=== PATIENT | male | born 1950 | race Caucasian/White ===

== ENCOUNTER 2021-05-31 10:39 | Inpatient (IN) | payer OTHER, SELFPAY ==
[~2021-05-31] VITALS: Ht 162.6 cm; Wt 136.1 kg
[~2021-05-31 10:39] MED LIST: AMLO10TA PO; ASPI-1822 PO; ATOR20TA PO; LOSA50TA66 PO
[2021-05-31 10:40] VITALS: BP 102/39
[2021-05-31] MEDS ORDERED: cefTRIAXone 1,000 MG in DEXT 5% MINI-BAG PLUS 50 ML IV ONE (10:45)
--- NOTE | 2021-05-31 11:15 | NUR ---
BLOODWORK COLLECTED AND WALKED OVER TO LAB
[2021-05-31 11:25] LABS: BASOPHILS % (AUTO) 0.1 % (0.0-2.0); EOSINOPHILS % (AUTO) 0.1 % (0.0-4.0); HEMATOCRIT 41.7 % (36-52); HEMOGLOBIN 13.3 g/dL (12.0-18.0); LYMPHOCYTES # (AUTO) 0.4 K/uL (2.0-11.5); LYMPHOCYTES % (AUTO) 2.2 % (20.5-51.1); MEAN CORPUSCULAR HEMOGLOBIN 31 pg (27-31); MEAN CORPUSCULAR HGB CONC 32 g/dL (33-37); MEAN CORPUSCULAR VOLUME 95.5 fL (80-94); MONOCYTES # (AUTO) 0.9 K/uL (0.8-1.0); MONOCYTES % (AUTO) 5.2 % (1.7-9.3); NEUTROPHILS # (AUTO) 16.3 K/uL (1.8-7.7); NEUTROPHILS % (AUTO) 92.4 % (42.2-75.2); PLATELET COUNT (AUTO) 129 K/uL (140-450); RED BLOOD CELL COUNT(AUTO) 4.37 MIL/uL (4.20-6.10); RED CELL DISTRIBUTION WIDTH 15.7 % (11.6-13.7); WHITE BLOOD COUNT (AUTO) 17.6 K/uL (4.8-10.8)
--- NOTE | 2021-05-31 11:30 | NUR ---
70/M BIBA FOR C/O GENERALIZED WEAKNESS AND SLURRED SPEECH X4 DAYS. EMS STATES PATIENT CALLED 911 STATING HE HAS BEEN FEELING INCREASINGLY MORE WEAK EMS STATING ON SCENE PATIENT APPEARED TO HAVE SLURRED SPEECH, NO SIGNS OF FACIAL DROOP OR DROOLING. PATIENT HAS LEFT FOOT AMPUTATION AND RIGHT TOES AMPUTATION, PATIENT DENIES PAIN OR SOB, DENIES FEVERS OR CHILLS. UPON ARRIVAL PATIENT HAS BED BUGS ON HIM, PATIENT PLACED IN GOWN ON BEDSIDE COIN TELLER.
[2021-05-31] MEDS ORDERED: cefTRIAXone 1,000 MG VIAL ONE (11:31)
--- NOTE | 2021-05-31 12:00 | NUR ---
PATIENT TAKEN TO CT VIA MELVIN
[2021-05-31 12:04] LABS: ALBUMIN 3.2 g/dL (3.4-5.0); ANION GAP 17.4 (8-16); ASPARTATE AMINOTRANSFERASE 25 U/L (15-37); CARBON DIOXIDE 22.2 mmol/L (21-32); CHLORIDE 107 mmol/L (98-107); CREATININE 3.2 mg/dL (0.6-1.3); GLUCOSE 99 mg/dL (74-106); POTASSIUM 5.6 mmol/L (3.5-5.1); SODIUM SERUM 141 mmol/L (136-145); TOTAL BILIRUBIN 0.7 mg/dL (0.0-1.0); UREA NITROGEN, BLOOD 48 mg/dL (7-18)
--- NOTE | 2021-05-31 17:00 | NUR ---
PATIENT TAKEN TO CT VIA MELVIN
[2021-05-31 17:06] LABS: APPEARANCE,URINE SL CLOUDY (CLEAR); BILIRUBIN,URINE NEGATIVE (NEGATIVE); BLOOD, URINE 3+ (NEGATIVE); COLOR,URINE YELLOW (YELLOW); LEUKOCYTE ESTERASE ,URINE 2+ (NEGATIVE); NITRITE, URINE NEGATIVE (NEGATIVE); PH,URINE 5.5 (5.0-9.0); UGLUCOSE NEGATIVE (NEGATIVE)
[2021-05-31 17:15] LABS: RBC,URINE 50-80 /HPF (0-5); WBC,URINE 80-100 /HPF (0-5)
[2021-05-31] MEDS ORDERED: ACETAMINOPHEN 325 MG TAB PO PRN (17:15)
[2021-05-31] MEDS ORDERED: MORPHINE SULFATE 4 MG/ML SYR IVP PRN (17:15)
[2021-05-31] MEDS ORDERED: GLIP5TER PO (17:59)
[2021-05-31] MEDS ORDERED: VITD400 PO (17:59)
[2021-05-31] MEDS ORDERED: LOSA100T1 PO (17:59)
[2021-05-31] MEDS ORDERED: ATOR20TA PO (17:59)
[2021-05-31] MEDS ORDERED: AMLO10TA89 PO (17:59)
[2021-05-31] MEDS ORDERED: ASPI-1822 PO (17:59)
[2021-05-31] MEDS ORDERED: FERR325E14 PO (17:59)
[2021-05-31] MEDS ORDERED: FURO-572 PO (17:59)
--- NOTE | 2021-05-31 18:11 | NUR ---
PATIENTS BLOOD PRESSURE 193/160 AND AGAIN 176/114. MADE DR. HDZ AWARE, TELEPHONE ORDER FOR LOSARTAN 25MG AND AMLODIPINE 10MG TO BE GIVEN.
[2021-05-31] MEDS ORDERED: LOSARTAN 25 MG TAB PO SCH (18:13)
--- NOTE | 2021-05-31 19:00 | NUR ---
Patient noted to have existing wounds upon arrival to ER. Photos taken of wound and placed in chart. Physician informed.
--- NOTE | 2021-05-31 19:28 | NUR ---
Pt report given to GUILLE ANAND. Transfer of care at this time.
--- NOTE | 2021-05-31 22:15 | NUR ---
Patient appears to be resting comfortably in bed. Vital Signs within normal limits. Respirations even and unlabored.
--- NOTE | 2021-06-01 01:00 | NUR ---
PT URINATED ON SHEETS. PROCIDED PT BARRETT LYNCH, AND NEW SHEETS. LUPE PLACED UNDER. ASSISTED BY EWA STROUD
[2021-06-01] MEDS: NACL 0.9% 1,000 ML IV SCH ×3 (01:43→18:15)
--- NOTE | 2021-06-01 03:51 | NUR ---
CALLED [facility] FOR ORDERS. PT MAP OF 54 AND HR LOW 39. [employer] OFFICER DR ADVISED BOUS 1 L AND RECHECK BP
--- NOTE | 2021-06-01 05:08 | NUR ---
PT HR AT 39. DENTAL CLAIMS PROCESSOR CALLED AND LEFT MESSAGE.
--- NOTE | 2021-06-01 05:20 | NUR ---
CALLED BACK PUT IT TORB FOR ATROPINE 0.5 MG. TO BE GIVEN BY TANA. PT ON HEART MONITOR . WILL CONTINUE TO MONITOR.
[2021-06-01] MEDS ORDERED: ATROPINE 0.4 MG/ML VIAL IVP ONE (05:25)
[2021-06-01] MEDS ORDERED: ATROPINE 1 MG/10 ML SYR IVP ONE (05:29)
--- NOTE | 2021-06-01 05:30 | NUR ---
atropine given by charge nurse elsa landaverde in ER
--- NOTE | 2021-06-01 06:15 | NUR ---
pt pulled out iv. and tore off leads. pt confused. cannot answer to where we are at, time, place, date. responds to name and pain.
--- NOTE | 2021-06-01 08:00 | NUR ---
Pt without IV and placed new IV to LAC at this time.
--- NOTE | 2021-06-01 08:16 | NUR ---
RECEIVED PHONE REPORT FROM ER NURSE. WAITING PATIENT TO TRANSFER TO UNIT.
--- NOTE | 2021-06-01 08:16 | NUR ---
Patient will be admitted to care of Dr Quintana. Admited to Tele. Will go to room 121A. Belongings list completed. Report to ZEB Franz.
[2021-06-01 08:45] VITALS: BP 97/36
--- NOTE | 2021-06-01 08:45 | NUR ---
RECEIVED PATIENT FROM ER. CC GEN WEAKNESS, SLURRED SPEECH X3 DAYS, DX SEPSIS UTI. PATIENT IS AWAKE WITH VOICE, LETHARGIC. UNABLE TO VERBALIZED NAME. RESPIRATORY EVEN AND UNLABORED, ON 5L OXYGEN VIA NC. NO SIGN OF DISTRESS NOTED. LUNG SOUND CLEAR TO AUSCULTATE. BOWEL SOUND ACTIVE TO ALL QUADRANTS, ABDOMEN ROUNDED, SOFT, NON TENDER. S1 AND S2 NOTED, NO MURMUR. ON TELE MONITOR WITH SB. SKIN WARM, DRY, NON DIAPHORETIC, SKIN RASH NOTED ON BILATERAL BUTTOCK. IV ON LEFT AC 20G, INTACT AND PATENT, SALINE LOCK. LEFT BKA. PATIENT ABLE TO FOLLOW MINIMAL COMMANDS. UNABLE TO VERBALIZED NEED. MRSA COLLECTED. ORIENT TO ROOM AND UNIT ROUTINE. PLAN OF CARE DISCUSSED. PRECAUTION IN PLACE. CALL LIGHT WITHIN REACH. WILL CONTINUE TO MONITOR.
[2021-06-01] MEDS ORDERED: amLODIPine 5 MG TAB PO SCH (09:00)
--- NOTE | 2021-06-01 09:48 | NUR ---
SCHEDULE MEDICATION GIVEN WITH EDUCATION, PATIENT TOLERATED WELL. NO SIGN OF DISTRESS NOTED. PRECAUTION IN PLACE. CALL LIGHT WITHIN REACH. WILL CONTINUE TO MONITOR.
[2021-06-01 10:12] LABS: BASOPHILS % (AUTO) 0.2 % (0.0-2.0); EOSINOPHILS % (AUTO) 0.2 % (0.0-4.0); HEMATOCRIT 37.4 % (36-52); HEMOGLOBIN 12.1 g/dL (12.0-18.0); LYMPHOCYTES # (AUTO) 0.3 K/uL (2.0-11.5); LYMPHOCYTES % (AUTO) 2.4 % (20.5-51.1); MEAN CORPUSCULAR HEMOGLOBIN 31 pg (27-31); MEAN CORPUSCULAR HGB CONC 33 g/dL (33-37); MEAN CORPUSCULAR VOLUME 94.6 fL (80-94); MONOCYTES # (AUTO) 0.7 K/uL (0.8-1.0); MONOCYTES % (AUTO) 4.8 % (1.7-9.3); NEUTROPHILS # (AUTO) 12.8 K/uL (1.8-7.7); NEUTROPHILS % (AUTO) 92.4 % (42.2-75.2); PLATELET COUNT (AUTO) 99 K/uL (140-450); RED BLOOD CELL COUNT(AUTO) 3.95 MIL/uL (4.20-6.10); RED CELL DISTRIBUTION WIDTH 16.1 % (11.6-13.7); WHITE BLOOD COUNT (AUTO) 13.8 K/uL (4.8-10.8)
[2021-06-01 10:23] LABS: ANION GAP 14.6 (8-16); CARBON DIOXIDE 22.7 mmol/L (21-32); CHLORIDE 112 mmol/L (98-107); GLUCOSE 83 mg/dL (74-106); POTASSIUM 5.3 mmol/L (3.5-5.1); SODIUM SERUM 144 mmol/L (136-145); UREA NITROGEN, BLOOD 50 mg/dL (7-18)
--- NOTE | 2021-06-01 11:05 | NUR ---
DC PLANNING: BALAJI SPOKE WITH TERE, CM FOR REGAL, CLINICAL REVIEW GIVEN. ASKED THAT AUTHORIZATION BE CHANGED FROM OUTPATIENT IN PATIENT STATUS. PATIENT ADMITTED WITH UTI, WBC'S ON ADMISSION 17.6, GAP 17.4. CR 3.2, DOCUMENTED LINETTE ON CKD, NEPHRO CONSULT ORDERED. STARTED ON ROCEPHIN IV, CM WILL FOLLOW FOR NEEDS. Addendum: 06/01/21 at 1508 by Rosa Elena Larios CM DC PLANNING: BALAJI SPOKE WITH THE PATIENTS SON MARIAN BY PHONE. THE PATIENT LIVES IN A GROUND FLOOR APARTMENT WITH HIS SON, GRANDCHILDREN, DAUGHTER IN LAW AND SPOUSE. THE PATIENT IS WC BOUND S/P LEFT BKA X 4 YEARS BUT IS ABLE TO STAND AND TRANSFER INDEPENDENTLY. HE HAS OTHER DME OF SHOWER BENCH AND IS INDEPENDENT WITH ADL'S. HE DOES TELEHEALTH VISITS WITH HIS PCP WHO IS THROUGH THE [place] AND HAS HOME HEALTH [facility] FOR WOUNDS TO THE RIGHT LEG. WILL RE-ORDER HOME HEALTH WHEN PATIENT IS STABLE FOR DC HOME, CM WILL FOLLOW FOR NEEDS. Addendum: 06/02/21 at 1042 by Rosa Elena Larios CM DC PLANNING: CM SPOKE WITH [facility], CONFIRMED THAT THEY HAVE BEEN FOLLOWING THE PATIENT. PHONE NUMBER IS [phone], FAX [phone]. CM WILL FAX ORDER FOR HOME HEALTH ON DC TO [facility] SO THAT HOME HEALTH IS SET UP IN CASE OF A WEEKEND DC. CM WILL FOLLOW FOR NEEDS. Addendum: 06/08/21 at 1039 by Rosa Elena Larios CM DC PLANNING: CLINICAL REVIEW GIVEN TO GLADIS TODD [facility]. CM WILL FOLLOW. Addendum: 06/23/21 at 1322 by Rosa Elena Larios CM DC PLANNING: CM SPOKE WITH TERE AT [facility], CLINICAL REVIEW GIVEN. PATIENT ON BIPAP AT 30%, CONTINUES WITH HD, CR 2.5. DOPAMINE BEING TITRATED, AT 4 MCG, CONTINUES ON LASIX AND MEREM. BEING FOLLOWED BY PULEvens, NEPHRO, URO AND ID. CM WILL FOLLOW. Addendum: 06/27/21 at 1203 by Tamera Saunders RN DC PLANNING: OFF DOPAMINE DRIP, ON BIPAP FIO2 30% SATING 97%. POSSIBLE DOWN GRADE TO TELE. PER WARP DYEING TENDER NO INDICATION FOR DIALYSIS. CALLED [facility] [phone] SPOKE WITH TERE BALAJI UPDATED PT'S CLINICAL. DC PLAN TRANSFER TO TELE AND WEAN OF BIPAP. CM TO FOLLOW. Addendum: 06/28/21 at 1136 by Tamera Saunders RN DC PLANNING: FAXED THE [facility] ORDER TO TRESSA CARPIO TO FOLLOW Addendum: 06/28/21 at 1612 by Tamera Saunders RN DC PLANNING CALLED [facility] SPOKE WITH TERE REGARDING THE LTAC EVAL PER TERE PATIENT NOT QUALIFIED FOR LTAC WILL DISCUSS IT WITH DR MCDONALD. CM TO FOLLOW Addendum: 06/28/21 at 1632 by Tamera Saunders RN DC PLANNING: RECEIVED A CALL FROM [facility] SPOKE WITH TERE STATED SHE SPOKE WITH DR TOLBERT AND DR MCDONALD NO NEED TO TRANSFER TO LTAC INSTEAD HOME WITH CPAP . TERE WILL FAX THE CPAP FORM . CM TO FOLLOW Addendum: 06/29/21 at 1129 by Tamera Saunders RN DC PLANNING: SPOKE WITH DR MCDONALD NOTIFIED HIM THAT [facility] DENIED LTAC EVAL. HOWEVER DR MCDONALD INSIST THAT PATIENT CAN"T GO HOME WITH CPAP. CALLED [facility] LEFT A MESSAGE FOR CM [facility]ERE. FAXED TO [facility]. CM TO FOLLOW Addendum: 07/03/21 at 1545 by Tamera Saunders RN DC PLANNING: RECEIVED A CALL FROM [facility] SPOKE WITH TERE STATED [address] [facility] [address] [facility] BECAUSE OF NO SKILL NEEDS AND BIPAP CAN BE MANAGED AT HOME . SHE STILL AWAITING FOR OTHER SNF. SPOKE WITH DELISA AT [facility] FOR THE BIPAP ORDER ONCE THEY SPOKE WITH THE SON FOR THE CO PAY WILL DELIVER THE BIPAP AT THE HOSPITAL. CM TO FOLLOW Addendum: 07/04/21 at 1136 by Tamera Saunders RN DC PLANNING: PER PATIENT'S SON MARIAN OVERTON HAS A [place] INSURANCE AND EVERYTHING SHOULD BE COVERED. CALLED [facility] [phone] SPOKE WITH AZUCENA STATED PATIENT IS 100% COVERED AND REQUESTING ALL PAPERWORK TO BE FAXED TO [phone]. ONCE SHE RECEIVED WILL PRESENT TO THE [place] MD TO GET APPROVAL. CM TO FOLLOW Addendum: 07/04/21 at 1342 by Tamera Saunders RN DC PLANNING: CALLED [place] SPOKE WITH [facility] VICTORIA STILL REVIEWING AND WILL CALL BACK CM TO FOLLOW Addendum: 07/05/21 at 1213 by Tamera Saunders RN DC PLANNING: RECEIVED A CALL FROM [place] [employer] SPOKE WITH JOEL [phone] STATED HE WILL E-MAIL THE CONTRACTED [facility] CM TO FOLLOW Addendum: 07/05/21 at 1314 by Tamera Saunders RN DC PLANNING: RECEIVED A LIST OF CONTRACTED FACILITIES, CALLED PT'S SON SPOKE WITH MARIAN STATED WOULD LIKE HIM TO STAY AT [facility]. [facility]ED TO [facility] CM TO FOLLOW Addendum: 07/06/21 at 1123 by Tamera Saunders RN DC PLANNING: CALLED [place] CM [phone] SPOKE WITH JOEL STATED HE GAVE AUTH TO BRANDON AT [facility] AND AWAITING FOR APPROVAL FOR C-PAP. CM TO FOLLOW Addendum: 07/06/21 at 1456 by Tamera Saunders RN DC PLANNING: RECEIVED A CALL FROM [place] SPOKE WITH JOEL STATED IN ORDER TO HAVE BIPAP ORDER THE [place] DR HAS TO DO THE SLEEP STUDY AND THAT TAKES A WEEK OR 2 AND WILL BE A DELAY FOR DC. CALLED PATIENT SON SPOKE WITH MARIAN AGREED TO PAY THE CO PAY 90 THE FIRST DEPOSIT AND 52 EVERY MONTH. CALLED [facility] SPOKE WITH NILAM STATED THE MACHINE GOT DELIVERED AND PT WILL BE BILLED. CALLED [facility] FRAUSTO SPOKE WITH [facility]AND[facility] STATED WILL GET THE AUTH FROM JOEL AT [place] PT CAN GO TO ROOM 12A . PER JOEL TO CALL [place] [facility] [phone] TO ARRANGE TRANSPORT. CM TO FOLLOW Addendum: 07/06/21 at 1601 by Tamera Saunders RN DC PLANNING: RECEIVED A CALL FROM PT'S SON STATED THAT PT'S WALLET IS MISSING. CHECKED WITH ER DOCUMENTATION ,STATED PATIENT HAS NO WALLED , CHECKED WITH ICU NURSE LISSETT WHO ADMITTED IN ICU SPOKE WITH PT'S SON AT THAT TIME AND CLARIFIED PT HAS NO WALLET. CHECKED WITH TELEEMETRY AND SECURITY NO WALLET. MARIAN WILL CHECK WITH [facility]. CARPIO TO FOLLOW
--- NOTE | 2021-06-01 11:20 | NUR ---
SPOKE WITH PATIENT'S SON, MARIAN. ALL QUESTIONS WERE ANSWERED.
[2021-06-01 12:00] VITALS: BP 95/33
--- NOTE | 2021-06-01 12:30 | NUR ---
BED BATH GIVEN, PATIENT TOLERATED WELL. PATIENT IS MORE AWAKE, ABLE TO VERBALIZE NAME AND . REORIENT PATIENT, EDUCATE USING CALL LIGHT TO HELP. PATIENT DENIES ANY PAIN OR DISCOMFORT. ABLE TO MAKE NEED KNOWN. PRECAUTION IN PLACE. CALL LIGHT WITHIN REACH. WILL CONTINUE TO MONITOR.
--- NOTE | 2021-06-01 12:40 | NUR ---
SPOKE WITH DR LAZCANO REGARDING PATIENT CONDITION. AWARE THAT PT IS RUNNING LOW BP. WILL FOLLOW ORDER. WILL CONTINUE TO MONITOR.
[2021-06-01] MEDS ORDERED: SODIUM POLYSTYRENE 15 GM/60 ML UDBTL PO SCH (14:00)
--- NOTE | 2021-06-01 14:20 | NUR ---
PATIENT IS AWAKE, RESTING IN BED, NO SIGN OF DISTRESS NOTED. PRECAUTION IN PLACE. CALL LIGHT WITHIN REACH. WILL CONTINUE TO MONITOR.
--- NOTE | 2021-06-01 15:19 | NUR ---
PATIENT HAS BEEN SCREENED AND CATEGORIZED MODERATE NUTRITION RISK. PATIENT WILL BE SEEN WITHIN 3-[address] OF [address]ION. BETTY MCCLURE RD
[2021-06-01 16:00] VITALS: BP 108/53
--- NOTE | 2021-06-01 16:45 | NUR ---
SCHEDULE MEDICATION GIVEN WITH EDUCATION, PATIENT IS AWAKE, VERBALIZED UNDERSTANDING, PATIENT TOLERATED WELL. NO SIGN OF DISTRESS NOTED. PRECAUTION IN PLACE. CALL LIGHT WITHIN REACH. WILL CONTINUE TO MONITOR.
[2021-06-01] MEDS: MIDODRINE 5 MG TAB PO SCH (18:22)
--- NOTE | 2021-06-01 18:26 | NUR ---
PATIENT IS HAVING DINNER, NO SIGN OF DISTRESS NOTED. O2 SAT 98% ON RA. PRECAUTION IN PLACE. CALL LIGHT WITHIN REACH. WILL CONTINUE TO MONITOR.
--- NOTE | 2021-06-01 19:12 | NUR ---
ENDORSED PATIENT TO SURVEY SUPERINTENDENT NURSE TO CONTINUITY OF CARE. PATIENT IS STABLE.
--- NOTE | 2021-06-01 19:13 | NUR ---
RECEIVED BEDSIDE REPORT FROM AM RN. PATIENT AWAKE, ALERT IN BED RESTING. ON ROOM AIR. NO S/S OF RESPIRATORY DISTRESS. BREATHING EVEN UNLABORED. ABLE TO COMMUNICATE WITH HIS NEEDS. ALL SAFETY PRECAUTIONS ARE IN PLACE. CALL LIGHT WITHIN REACH. WILL CONTINUE TO MONITOR PT.
[2021-06-01 20:00] VITALS: BP 100/60
--- NOTE | 2021-06-01 21:27 | NUR ---
PER PERMISSION OF ZEB APARICIO - ANSWERING DR VEGA CALL BACK - PER DR VEGA - GIVE HEPARIN INSPITE OF PLT 99 - INFORM ZEB APARICIO - SHE VERBALIZES UNDERSTANDING .
--- NOTE | 2021-06-01 22:06 | NUR ---
HEPARIN ADMINISTERED ORDERED BY
--- NOTE | 2021-06-01 23:00 | NUR ---
PATIENT CLEANED, CHANGED AND REPOSITIONED.
[2021-06-02] VITALS: BP 108/43
[2021-06-02 04:00] VITALS: BP 112/46
--- NOTE | 2021-06-02 04:53 | NUR ---
PATIENT IS SLEEPING. NO S/S OF DISTRESS NOTED. CALL LIGHT WITHIN REACH.
[2021-06-02] MEDS: MIDODRINE 5 MG TAB PO SCH ×3 (07:00→18:32)
--- NOTE | 2021-06-02 07:38 | NUR ---
ENDORSED TO AM RN FOR CONTINUITY OF CARE. PATIENT STABLE.
--- NOTE | 2021-06-02 07:40 | NUR ---
RECEIVED PT FROM NIGHT RN, PT IS ASLEEP AND VISIBLE CHEST RISE AND FALL, RESPIRATION IS EVEN, IV LINE NPOTED ON THE LFA G. 20 WITH IVF NS INFUSING AT 80ML/HR, INTYACT, PT IS ON RA, HAS LEFT BKA AND NO SIGN OF DISTRESS NOTED. WILL CONTINUE TO MONITOR PT.
[2021-06-02 07:51] LABS: BASOPHILS % (AUTO) 0.2 % (0.0-2.0); EOSINOPHILS # (AUTO) 0.1 K/uL (0-0.4); EOSINOPHILS % (AUTO) 0.6 % (0.0-4.0); HEMATOCRIT 35.5 % (36-52); HEMOGLOBIN 11.5 g/dL (12.0-18.0); LYMPHOCYTES # (AUTO) 0.4 K/uL (2.0-11.5); LYMPHOCYTES % (AUTO) 3.1 % (20.5-51.1); MEAN CORPUSCULAR HEMOGLOBIN 31 pg (27-31); MEAN CORPUSCULAR HGB CONC 32 g/dL (33-37); MEAN CORPUSCULAR VOLUME 95.5 fL (80-94); MONOCYTES # (AUTO) 0.7 K/uL (0.8-1.0); MONOCYTES % (AUTO) 5.4 % (1.7-9.3); NEUTROPHILS # (AUTO) 11.6 K/uL (1.8-7.7); NEUTROPHILS % (AUTO) 90.7 % (42.2-75.2); PLATELET COUNT (AUTO) 85 K/uL (140-450); RED BLOOD CELL COUNT(AUTO) 3.72 MIL/uL (4.20-6.10); RED CELL DISTRIBUTION WIDTH 16.2 % (11.6-13.7); WHITE BLOOD COUNT (AUTO) 12.8 K/uL (4.8-10.8)
[2021-06-02 08:00] VITALS: BP 123/69
[2021-06-02 08:10] LABS: MAGNESIUM 1.9 mg/dL (1.8-2.4)
[2021-06-02] MEDS: NACL 0.9% 1,000 ML IV SCH (11:00)
--- NOTE | 2021-06-02 11:59 | NUR ---
WOUND CARE EVALUATION: SKIN ASSESSMENT DONE WITH PRIMARY RN PT. ADMITTED WITH MULTIPLE PRESSURE INJURIES FROM SEVERE MOISTURE ASSOCIATED DERMATITIS WITH TISSUE DESTRUCTIONS FURTHER DOWN TO SUBCUTANEOUS TISSUE OR SLOUGHS TISSUE INVOLVED. POC DISCUSSED WITH PRIMARY RN AND PT. PT. NEED REINFORCEMENT TEACHING. INTEGUMENTARY: -LEFT BKA, STUMP OLD HEALED SCARS -INTERTRIGO LOWER ABDOMINAL FOLDS, AND GROINS MULTIPLE EROSIONS, PINK AND MOIST -SEVERE MOISTURE ASSOCIATED DERMATITIS TO SCROTAL AND ELENO-RECTAL, MULTIPLE EROSIONS -RIGHT BUTTOCK PRESSURE INJURY STAGE 3 8X5X0.2CM WOUND BED 100% GRANULATION TISSUE, MOIST, NO ODOR, ELENO WOUND SKIN NON-BLANCHABLE REDNESS WITH THIN EASILY TO TORN SKIN -LEFT BUTTOCK PRESSURE INJURY STAGE 7X2X0.2CM WOUND BED 100% GRANULATION TISSUE, MOIST, NO ODOR, ELENO WOUND SKIN NON-BLANCHABLE REDNESS WITH THIN EASILY TO TORN SKIN - SACRALCOCCYX PRESSURE INJURY STAGE 3 5 X 3 X 0.2 CM. WOUND BED PINK, MOIST, 90% GRANULATING, 10% YELLOW SLOUGH, MINIMAL SEROUS DRAINAGE, NO ODOR. ELENO-WOUND MOIST, PINK AND DENUDED SKIN - RIGHT ISCHIUM PRESSURE INJURY UN-STAGEABLE WITH 8X4XCM. WOUND BED 30% GRANULATING, 80% YELLOW SLOUGH, MINIMAL SANGUINOUS DRAINAGE, NO ODOR. ELENO-WOUND SKIN MOIST AND RED - LEFT ISCHIUM PRESSURE INJURY UN-STAGEABLE 3X5CM. WOUND BED PINK, MOIST, 100% GRANULATING, MINIMAL SANGUINOUS DRAINAGE, NO ODOR. ELENO-WOUND HEALED SCAR LEFT LOWER LEG PARTIAL THICKNESS SKIN LOSS 9X3X0.1CM, WOUND BED PINK AND DRY, NO ODOR, ELENO WOUND SKIN HEALING TISSUE, NO ODOR, PAIN 0/10 RECOMMENDATIONS: -CLEANS WITH MILD SOAP AND WATER, DUST NYSTATIN POWDERS TO LOWER ABDOMINAL FOLDS BID AND PRN IF SOILING -CLEANS WITH MILD SOAP AND WATER, APPLY Z GUARD TO SCROTAL AND ELENO-ANAL AREA EROSIONS BID AND PRN IF SOILING -SACRALCOCCYX ,LEFT AND RIGHT BUTTOCKS AND LEFT AND RIGHT ISCHIUMS WOUNDS CLEANSE WITH NS, PAT DRY, APPLY HYDROGEL TO WOUND BED AND Z GUARD TO ELENO-WOUND SKIN, COVER WITH ISLAND DRESSINGS QD AND PRN IF SOILING -CLEANSE LLE WOUND WITH NS, APPLY ADAPTIC DRESSING AND WRAP WITH KERLIX ROLL QD AND PRN IF SOILING -OFFLOAD LEFT STUMP AND RIGHT HEEL BY PLACING BILATERAL HEEL PROTECTORS. - TURN AND REPOSITION PATIENT Q2H TO LEFT AND RIGHT SIDE TO OFFLOAD SACRALCOCCYX. - ASSESS AND MONITOR SKIN CONDITION DURING POSITION CHANGE. PLEASE PAY ATTENTION TO SACRALCOCCYX AND HEELS. - KEEP SKIN DRY AND CLEAN AT ALL TIMES. - RD CONSULT
[2021-06-02 12:00] VITALS: BP 99/44
[2021-06-02 12:31] LABS: POTASSIUM 5.3 mmol/L (3.5-5.1); SODIUM SERUM 151 mmol/L (136-145)
[2021-06-02 12:32] LABS: CHLORIDE 118 mmol/L (98-107)
[2021-06-02 12:33] LABS: ANION GAP 22.1 (8-16); CARBON DIOXIDE 16.2 mmol/L (21-32); CREATININE 3.1 mg/dL (0.6-1.3); UREA NITROGEN, BLOOD 51 mg/dL (7-18)
--- NOTE | 2021-06-02 12:36 | NUR ---
RECEIVED A CRITICAL LAB RESULT FOR GLUCOSE OF 39 FOR PT NOW REPORTED BY DEVANTE IN LAB. BLOOD GLUCOSE CHECK WAS DONE TO RE-ASSESS AND BLOOD GLUCOSE IS 52.
[2021-06-02 12:37] LABS: GLUCOSE 39 mg/dL (74-106)
--- NOTE | 2021-06-02 12:45 | NUR ---
MENDEZ CATHETER INSERTION WAS DONE NOW BUT UNSUCCESSFUL, CORDELL REAVES ATTEMPTED TO RE-INSERT MENDEZ CATHETER ALSO BUT UNSUCCESSFUL ALSO. WILL NOTIFY .
[2021-06-02] MEDS ORDERED: DEXTROSE 50% 50 ML SYR IVP ONE (12:47)
[2021-06-02] MEDS ORDERED: DEXTROSE 50% 50 ML SYR IVP PRN (13:10)
[2021-06-02] MEDS ORDERED: NACL 0.9% 500 ML IV SCH (13:10)
[2021-06-02] MEDS: NYSTATIN POW 100 MU/GM 15 GM BTL TP SCH (13:31)
[2021-06-02] MEDS: Z-GUARD PASTE TP SCH (13:31)
[2021-06-02] MEDS: NON ADHERENT DRESSING TP SCH (13:32)
--- NOTE | 2021-06-02 13:36 | NUR ---
BLOOD GLUCOSE CHECK DONE AND IS 131.
--- NOTE | 2021-06-02 14:30 | NUR ---
PT WAS GIVEN BOLUS 500ML NOW PER MD ORDER, DUE TO BP IS LOW, DR. LOPEZ IS AWARE.
[2021-06-02] MEDS ORDERED: SODIUM POLYSTYRENE 15 GM/60 ML UDBTL PO SCH (15:00)
--- NOTE | 2021-06-02 15:58 | NUR ---
06/02/21 RD INITIAL ASSESSMENT COMPLETED PLEASE REFER TO NUTRITION ASSESSMENT UNDER CARE ACTIVITY FOR ESTIMATED NUTRITIONAL NEEDS. 1. CONTINUE CARDIAC, MECHANICAL SOFT DIET TOLERATED 2. RECOMMEND GABRIEL BID AND ENSURE BID PER RD PROTOCOL 3. RD TO FOLLOW-UP 2-3 DAYS, HIGH RISK BETTY MCCLURE, KB
[2021-06-02 16:00] VITALS: BP 112/51
--- NOTE | 2021-06-02 16:40 | NUR ---
MENDEZ CATHTER WAS INSERTED BY UROLOGIST INCIDENT COORDINATOR, F.18 WAS USED. DRAINED 900ML OF URINE.
[2021-06-02] MEDS: SODIUM BICARBONATE 8.4% 100 MEQ in DEXTROSE 5% 1,000 ML IV SCH (17:53)
--- NOTE | 2021-06-02 19:25 | NUR ---
ENDORSED PT TO NIGHT RN FOR CONTINUITY OF CARE. PT IS STABLE AT THIS TIME, SATURATING AT 96% ON O2 2L NC, HEART RATE IS 49.
--- NOTE | 2021-06-02 19:26 | NUR ---
RECEIVED PATIENT FROM AM NURSE. PATIENT AWAKE IN HIGH FOWLERS POSITION WITH O2 AT 2L NC TOLERATING WELL. NO ACUTE DISTRESS. BREATHING REGULAR UNLABORED. IVF INFUSING ON THE LAC ORDERED BY MD. SAFETY MEASURES IN PLACE. CALL LIGHT WITHIN REACH.
[2021-06-02 20:00] VITALS: BP 98/44
--- NOTE | 2021-06-02 20:25 | NUR ---
HEPARIN GIVEN ORDERED BY .
--- NOTE | 2021-06-02 22:50 | NUR ---
BP- 93/29 P-[address] LOPEZ . CALLED BACK AT [phone] WITH ORDER OF NS 500 ML BOLUS.
--- NOTE | 2021-06-02 23:05 | NUR ---
PER JEWEL ,RN PUT NSS [address] LOPEZ - WILL PUT AN ORDER .
[2021-06-02] MEDS: NACL 0.9% 500 ML IV SCH (23:11)
--- NOTE | 2021-06-02 23:36 | NUR ---
PER PERMISSION OF ZEB HOLLOWAY PUT AN ORDER TRANSFER TO PT. TO ICU PER ORDERED BY DR. LOPEZ . Addendum: 06/02/21 at 2350 by Pinky Whiteside RN REMINDING JEWEL ABOUT DR. LOPEZ'S LATEST ORDER : PT FOR REFERRAL TO DR. MARVIN FUENTES Addendum: 06/02/21 at 2351 by Pinky Whiteside RN JEWEL VERBALIZES UNDERSTANDING ABOUT THE ORDER OF DR. LOPEZ .
[2021-06-02] MEDS ORDERED: D5W IV ONE (23:50)
[2021-06-02] MEDS ORDERED: DOPAMINE IV ONE (23:50)
--- NOTE | 2021-06-02 23:51 | NUR ---
PER ICU - BRING THE PT . NOW
[2021-06-02] MEDS ORDERED: NOREPINEPHRINE 4 MG/4 ML VIAL IV ONE (23:53)
--- NOTE | 2021-06-02 23:57 | NUR ---
TRANSFERRED PATIENT TO ICU PER DR. LOPEZ ORDERED.
[2021-06-03] VITALS (24 sets, daily range): BP systolic 89–151; BP diastolic 35–81
[2021-06-03] MEDS: NACL 0.9% 500 ML IV SCH ×5 (00:07→01:40)
[2021-06-03] MEDS: KCL 20 MEQ/WATER INJ PREMIX 100 ML IV SCH ×3 (00:30→22:00)
--- NOTE | 2021-06-03 00:30 | NUR ---
REPORT GIVEN TO ZEB LORENZO FOR CONTINUITY OF CARE.
[2021-06-03] MEDS: NOREPINEPHRINE 4 MG in DEXTROSE 5% 250 ML IV PRN (00:35)
[2021-06-03] MEDS: Z-GUARD PASTE TP SCH ×2 (01:00→12:26)
[2021-06-03] MEDS: NYSTATIN POW 100 MU/GM 15 GM BTL TP SCH ×2 (01:00→12:27)
--- NOTE | 2021-06-03 01:01 | NUR ---
RECEIVED CALL FROM ICU CHARGE NURSE, STATING A STAT ABG HAD BEEN ORDERED FOR THE PT, DUE TO DESATURATION. I ENTERED THE PT'S ROOM I OBSERVED THE PT WORKING HARD TO BREATH AND THE PT HAD AUDIBLE COURSE BREATH SOUNDS WITHOUT THE USE OF A STETHOSCOPE. I WAS UNSUCCESSFUL IN MY ATTEMPT FOR THE ABG, I CALLED MY SECOND RT, THE PT AT THIS TIME REFUSED THE ABG. NURSING STAFF MADE AWARE. DUE THE WORK OF BREATHING AND DIFFICULTY CLEARING SECRETIONS, I PLACED THE PT ON BI-PAP AT THIS TIME. WILL ATTEMPT TO OBTAIN ABG IN AN HOUR. THE PATIENT'S WORK OF BREATHING DECREASED AND SATURATION IS AT 100% AT THIS TIME. WILL CONTINUE TO MONITOR
[2021-06-03] MEDS: SODIUM BICARBONATE 8.4% 100 MEQ in DEXTROSE 5% 1,000 ML IV SCH ×2 (01:30→09:18)
--- NOTE | 2021-06-03 01:32 | NUR ---
PATIENT TO ROOM ICU 1. NOT ALERT OPENS EYES NON VERBAL HEART RATE 50 B/P 94/49 STARTED ON LEVOPHED 15 MCG . 0100 B/P 125/50 HEART RATE 57. PATIENT ON 5 LITERS N/C.PATIENT TO START BACK ON NA-BI-CARB 100 HOUR. PATIENT HAS F/C DRAINING PURULENT URINE. PATIENT IS LEFT BKA SKIN VERY EXCORIATED.
--- NOTE | 2021-06-03 01:47 | NUR ---
CALLED AT 0058 RETURN CALL 0100 TOLD PATIENT HERE FROM [facility] [place] AND HEART RATE 48 TOLD DREfraín PATIENT STARTED ON LEVOPHED ORDERED. DR. LOPEZ TOLD US TO CALL DR. MCDONALD TO SEE IF HE WANTS US TO START DOPAMINE DR. MCDONALD ORDERED DOMAMINE. NOT STARTED YET. DOPAMINE STARTED AT 0152.
[2021-06-03] MEDS: DOPamine 400 MG/D5W PREMIX 250 ML IV PRN ×3 (02:00→19:30)
--- NOTE | 2021-06-03 07:15 | NUR ---
RECEIVED BEDSIDE REPORT FROM BJ CARRINGTON FOR CONTINUITY OF CARE. PT AAOX1, LETHARGIC. SUPINE IN THE BED. ON BIPAP R 18, FIO2 75%. SINUS RHYTHM ON MONITOR. LAC 20G IV PATENT INTACT INFUSING SODIUM BICARBONATE AT 100 ML/H, NS AT 5 ML/H, LEVOPHED ON HOLD, AND DOPAMINE AT 10 MCG/KG/MIN. F/C IN PLACE, DRAINING TO GRAVITY. SKIN NOT INTACT, SEE WOUND ASSESSMENT. L BKA. CALL LIGHT WITHIN REACH, STANDARD PRECAUTIONS IN PLACE. SAFETY PRECAUTIONS MET. INITIAL ASSESSMENT COMPLETE, WILL CONTINUE TO MONITOR.
[2021-06-03] MEDS: MIDODRINE 5 MG TAB PO SCH ×3 (07:57→18:14)
[2021-06-03] MEDS: SKINTEGRITY HYDROGEL TP SCH (09:15)
--- NOTE | 2021-06-03 09:15 | NUR ---
LABORATORY AT BEDSIDE, UNABLE TO DRAW BLOOD.
--- NOTE | 2021-06-03 09:45 | NUR ---
SPOKE WITH CARL PICC NURSE VIA TELEPHONE REGARDING PICC LINE INSERTION, NEEDS CHIEF CREDIT OFFICER APPROVAL. PAGED DR HORN.
--- NOTE | 2021-06-03 09:53 | NUR ---
DR HORN CALLED BACK AND GAVE APPROVAL FOR PICC LINE. NEW ORDERS ALSO CARRIED OUT.
[2021-06-03] MEDS ORDERED: FUROSEMIDE 100 MG/10 ML VIAL IV SCH (10:17)
--- NOTE | 2021-06-03 10:20 | NUR ---
XRAY AT BEDSIDE.
--- NOTE | 2021-06-03 10:45 | NUR ---
SEEN AND EXAMINED BY DR SIMON. NEW ORDERS CARRIED OUT.
--- NOTE | 2021-06-03 11:20 | NUR ---
SEEN AND EXAMINED BY DR CONTRERAS.
[2021-06-03] MEDS ORDERED: ALBUMIN HUMAN 25% 50 ML IV SCH (11:26)
[2021-06-03] MEDS ORDERED: SODIUM BICARBONATE 8.4% PFS 50 MEQ/50 ML SYR IVP ONE (11:37)
[2021-06-03] MEDS ORDERED: SODIUM BICARBONATE 8.4% PFS 50 MEQ/50 ML SYR IVP SCH (11:37)
--- NOTE | 2021-06-03 12:00 | NUR ---
BSG 174. COVERED WITH 2 UNITS OF HUMALOG PER MD ORDER.
[2021-06-03] MEDS: BLOOD GLUCOSE MONITORING 1 DEV DEV FS SCH ×3 (12:05→23:57)
[2021-06-03] MEDS: INSULIN LISPRO SLIDING SCALE 100 UNITS/ML VIAL SUBQ PRN (12:06)
[2021-06-03] MEDS: NON ADHERENT DRESSING TP SCH (12:27)
[2021-06-03] MEDS: CEFEPIME 2,000 MG in DEXTROSE 5% 100 ML IV SCH (12:29)
--- NOTE | 2021-06-03 15:30 | NUR ---
PICC NURSE CARL AT BEDSIDE.
--- NOTE | 2021-06-03 17:00 | NUR ---
RECEIVED REPORT FROM PICC NURSE CARL. INSERTED JORDON MIDLINE. PATENT INTACT. OBTAINED BLOOD FOR ORDERED LABS, DELIVERED TO LABORATORY.
[2021-06-03 17:07] LABS: BASOPHILS % (AUTO) 0.2 % (0.0-2.0); EOSINOPHILS % (AUTO) 0.3 % (0.0-4.0); HEMATOCRIT 38.6 % (36-52); HEMOGLOBIN 12.6 g/dL (12.0-18.0); LYMPHOCYTES # (AUTO) 0.4 K/uL (2.0-11.5); LYMPHOCYTES % (AUTO) 3.4 % (20.5-51.1); MEAN CORPUSCULAR HEMOGLOBIN 31 pg (27-31); MEAN CORPUSCULAR HGB CONC 33 g/dL (33-37); MEAN CORPUSCULAR VOLUME 94.1 fL (80-94); MONOCYTES # (AUTO) 0.8 K/uL (0.8-1.0); MONOCYTES % (AUTO) 6.8 % (1.7-9.3); NEUTROPHILS # (AUTO) 10.5 K/uL (1.8-7.7); NEUTROPHILS % (AUTO) 89.3 % (42.2-75.2); PLATELET COUNT (AUTO) 82 K/uL (140-450); WHITE BLOOD COUNT (AUTO) 11.7 K/uL (4.8-10.8)
[2021-06-03 17:19] LABS: ANION GAP 17.3 (8-16); CARBON DIOXIDE 21.4 mmol/L (21-32); CHLORIDE 111 mmol/L (98-107); GLUCOSE 130 mg/dL (74-106); POTASSIUM 3.7 mmol/L (3.5-5.1); SODIUM SERUM 146 mmol/L (136-145); UREA NITROGEN, BLOOD 48 mg/dL (7-18)
--- NOTE | 2021-06-03 17:30 | NUR ---
PAGED DR HORN REGARDING COMMUNICATION ORDER TO READ BACK CMP RESULTS.
--- NOTE | 2021-06-03 17:45 | NUR ---
CALL BACK FROM DR HORN. CARRIED OUT NEW ORDERS.
--- NOTE | 2021-06-03 17:50 | NUR ---
SPOKE WITH DR SIMON REGARDING DR HORN'S NEW PO ORDERS AND PATIENT'S DYSPHAGIA R/T LETHARGIC STATE. DR SIMON SAID TO HOLD PO ORDERS FOR TONIGHT AND REASSESS TOMORROW MORNING.
[2021-06-03] MEDS ORDERED: MAG SULF 2000 MG/WATER PREMIX 50 ML IV SCH (19:00)
--- NOTE | 2021-06-03 19:10 | NUR ---
SEEN AND EXAMINED BY DR HORN.
--- NOTE | 2021-06-03 19:20 | NUR ---
ENDORSED BEDSIDE REPORT TO SHANTELLE RN FOR CONTINUITY OF CARE.
--- NOTE | 2021-06-03 19:25 | NUR ---
RECEIVED PATIENT ON BED, ALERT ABLE TO FOLLOW SIMPLE COMMANDS; VENTILATING ON BIPAP AT 45% FIO2,RATE 18 16/6; SO2 99%. IV IN PROGRESS DOPAMINE AT 10 MCG/KG/MIN AND LEVOPHED AT AT 2 MCG/MIN VIA MIDLINE TO RIGHT UPPER ARM. ABDOMEN IS SOFT, VERY OBESE, ACTIVE BOWEL SOUNDS. MENDEZ CATH IN SITU DRAINING TO CLOUDY YELLOW URINE OUTPUT; INTACT. LEFT BKA NOTED.
[2021-06-03] MEDS: FUROSEMIDE 40 MG/4 ML VIAL IVP SCH (21:23)
[2021-06-04] VITALS (25 sets, daily range): BP systolic 91–161; BP diastolic 40–139
--- NOTE | 2021-06-04 | NUR ---
ACCUCHECK DONE; RESULT IS 107, NO INSULIN GIVEN PER SLIDING SCALE.
[2021-06-04] MEDS ORDERED: NOREPINEPHRINE 4 MG/4 ML VIAL IV ONE ×3 (00:27→20:50)
[2021-06-04] MEDS: NOREPINEPHRINE 4 MG in DEXTROSE 5% 250 ML IV PRN ×3 (00:42→21:07)
[2021-06-04] MEDS: NYSTATIN POW 100 MU/GM 15 GM BTL TP SCH ×2 (01:00→12:15)
[2021-06-04] MEDS: DOPamine 400 MG/D5W PREMIX 250 ML IV PRN (01:43)
--- NOTE | 2021-06-04 03:00 | NUR ---
DOPAMINE DRIP,TAPER AND HOLD.
[2021-06-04] MEDS: Z-GUARD PASTE TP SCH ×2 (03:30→12:15)
--- NOTE | 2021-06-04 04:00 | NUR ---
REFUSED MORNING BED BATH.
[2021-06-04 05:57] LABS: BASOPHILS % (AUTO) 0.4 % (0.0-2.0); EOSINOPHILS # (AUTO) 0.1 K/uL (0-0.4); EOSINOPHILS % (AUTO) 0.8 % (0.0-4.0); HEMATOCRIT 31.7 % (36-52); HEMOGLOBIN 10.6 g/dL (12.0-18.0); LYMPHOCYTES # (AUTO) 0.3 K/uL (2.0-11.5); MEAN CORPUSCULAR HEMOGLOBIN 31 pg (27-31); MEAN CORPUSCULAR HGB CONC 34 g/dL (33-37); MEAN CORPUSCULAR VOLUME 93.1 fL (80-94); MONOCYTES # (AUTO) 0.8 K/uL (0.8-1.0); NEUTROPHILS # (AUTO) 5.9 K/uL (1.8-7.7); PLATELET COUNT (AUTO) 85 K/uL (140-450); RED BLOOD CELL COUNT(AUTO) 3.41 MIL/uL (4.20-6.10); RED CELL DISTRIBUTION WIDTH 15.7 % (11.6-13.7); WHITE BLOOD COUNT (AUTO) 7.1 K/uL (4.8-10.8)
[2021-06-04] MEDS: BLOOD GLUCOSE MONITORING 1 DEV DEV FS SCH ×3 (06:14→17:37)
[2021-06-04] MEDS: MIDODRINE 5 MG TAB PO SCH ×2 (06:37→12:16)
[2021-06-04 07:01] LABS: ANION GAP 17.8 (8-16); CARBON DIOXIDE 20.1 mmol/L (21-32); CHLORIDE 110 mmol/L (98-107); CREATININE 3.1 mg/dL (0.6-1.3); GLUCOSE 93 mg/dL (74-106); POTASSIUM 5.9 mmol/L (3.5-5.1); SODIUM SERUM 142 mmol/L (136-145); UREA NITROGEN, BLOOD 48 mg/dL (7-18)
[2021-06-04 07:03] LABS: LYMPHOCYTES % (AUTO) 4.7 % (20.5-51.1); NEUTROPHILS % (AUTO) 82.9 % (42.2-75.2)
[2021-06-04 07:04] LABS: MONOCYTES % (AUTO) 11.2 % (1.7-9.3)
--- NOTE | 2021-06-04 07:05 | NUR ---
RECEIVED BEDSIDE REPORT FROM SHANTELLE RN FOR CONTINUITY OF CARE. PT AAOX1, LETHARGIC. SUPINE IN THE BED. ON BIPAP R 18, FIO2 45%, IPAP 16, EPAP 6. SINUS RHYTHM ON MONITOR. JORDON MIDLINE PATENT INTACT INFUSING NS TKO AT 5 ML/H, LEVOPHED AT 8 MCG/MIN, DOPAMINE HELD. F/C IN PLACE, DRAINING TO GRAVITY. SKIN NOT INTACT, SEE WOUND ASSESSMENT. L BKA. CALL LIGHT WITHIN REACH, STANDARD PRECAUTIONS IN PLACE. SAFETY PRECAUTIONS MET. INITIAL ASSESSMENT COMPLETE, WILL CONTINUE TO MONITOR.
--- NOTE | 2021-06-04 08:45 | NUR ---
SEEN AND EXAMINED BY DR SIMON.
--- NOTE | 2021-06-04 08:45 | NUR ---
DR CONTRERAS AT BEDSIDE FOR DIALYSIS CATHETER INSERTION.
[2021-06-04] MEDS: SKINTEGRITY HYDROGEL TP SCH (08:49)
[2021-06-04] MEDS ORDERED: SPIRONOLACTONE 50 MG TAB PO SCH (09:00)
--- NOTE | 2021-06-04 09:07 | NUR ---
REVIEWED [facility] SAMPLE REPORT WITH DR. YADY BRAR: OFF BIPAP TO MASK; KEEP SATURATION GREATER THAN 88%
[2021-06-04] MEDS: FUROSEMIDE 40 MG/4 ML VIAL IVP SCH ×2 (09:10→21:30)
[2021-06-04] MEDS: metOLazone 5 MG TAB PO SCH (09:10)
--- NOTE | 2021-06-04 09:20 | NUR ---
XRAY AT BEDSIDE.
[2021-06-04] MEDS ORDERED: VASOPRESSIN 20 UNITS in NACL 0.9% 250 ML IV SCH (09:50)
--- NOTE | 2021-06-04 09:50 | NUR ---
SPOKE WITH MARIAN (SON) VIA TELEPHONE TO GIVE UPDATE REGARDING PATIENT'S CONDITION.
--- NOTE | 2021-06-04 11:00 | NUR ---
SEEN AND EXAMINED BY DR EM.
--- NOTE | 2021-06-04 11:20 | NUR ---
RECEIVED CALL FROM DIALYSIS SERVICE, ETA /2PM.
--- NOTE | 2021-06-04 11:33 | NUR ---
PER DR. YADY BRAR AT 0907 REMOVED PATIENT FROM BIPAP TO MASK PLACED ON HUMIDIFIED SUPPLEMENTAL OXYGEN AT 4 LPM VIA SERGO KHALIL/ZEB NOTIFIED
--- NOTE | 2021-06-04 11:35 | NUR ---
RT AT BEDSIDE, OFF OF BIPAP PER DR SIMON ORDER, ON 4L NC. WILL CONTINUE TO MONITOR.
[2021-06-04] MEDS: NON ADHERENT DRESSING TP SCH (12:15)
[2021-06-04] MEDS: CEFEPIME 2,000 MG in DEXTROSE 5% 100 ML IV SCH (12:42)
--- NOTE | 2021-06-04 13:00 | NUR ---
UNABLE TO SWALLOW MIDODRINE, CRUSHED IN APPLESAUCE, NON-ADMIN REASON ON JUL.
--- NOTE | 2021-06-04 13:10 | NUR ---
RESTING WELL NO DISTRESS NOTED EQUAL CHEST RISE AIRWAY PATENT SATURATION 95% ON SUPPLEMENTAL OXYGEN AT 4 LPM VIA NC TITRATED FIO2 TO 3 LPM SIMRAN/RN NOTIFIED
[2021-06-04 13:22] LABS: PROTHROMBIN TIME 11.7 secs (10.8-13.4)
--- NOTE | 2021-06-04 14:30 | NUR ---
CLEANED AND REPOSITIONED, TOLERATED POORLY, SPO2 85%.
--- NOTE | 2021-06-04 14:45 | NUR ---
SEEN AND EXAMINED BY DR ARRIOLA. NEW ORDERS CARRIED OUT.
--- NOTE | 2021-06-04 15:00 | NUR ---
DIALYSIS NURSE AT BEDSIDE. WILL CONTINUE TO MONITOR.
--- NOTE | 2021-06-04 16:00 | NUR ---
MARIAN, PT'S SON, VISIT ICU TO SEE PT. COMMUNICATED THAT PT IS IN DIALYSIS AND UNABLE TO HAVE VISITORS AT THIS TIME. MARIAN EXPRESSED CONCERN ABOUT PT'S BELONGINGS. PT DOES NOT HAVE BELONGINGS AT THE BEDSIDE AT THIS TIME. CALLED [facility] SECURITY TO LOCATE BELONGINGS. NOT FOUND.
--- NOTE | 2021-06-04 17:15 | NUR ---
DIALYSIS COMPLETE, 500 CC OUT. PT TOLERATED WELL.
--- NOTE | 2021-06-04 19:15 | NUR ---
ENDORSED BEDSIDE REPORT TO SHANTELLE RN FOR CONTINUITY OF CARE.
--- NOTE | 2021-06-04 19:20 | NUR ---
RECEIVED PATIENT ON BED ALERT BUT WITH BOUT OF CONFUSION; MUMBLE SPEECH. VENTILATING ON 2 LITERS 02/NC, SO2 94%. CARDIACSCOPE SHOWS ON SINUS RHYTHM WITH BBB. COMMENCING ON IV LEVOPHED AT 8 MCG/MIN VIA MIDLINE TO RIGHT UPPER ARM PATENT AND INTACT. WITH CELESTINO CATH TO RIGHT INTERNAL JUGULAR FOR HD ACCESS. ABDOMEN IS SOFT AND VERY OBESE, HYPOACTIVE BOWEL SOUNDS.; KEPT NPO EXCEPT MEDS. WITH MENDEZ CATH IN PLACE DRAINING TO CLOUDY YELLOW URINE OUTPUT, INTACT.
--- NOTE | 2021-06-04 21:00 | NUR ---
ACCUCHECK DONE; NO INSULIN GIVEN PER SLIDING SCALE.
--- NOTE | 2021-06-04 22:00 | NUR ---
V/S MONITORED CLOSELY ESPECIALLY HIS BP BECAUSE HIS BP GOES UP SO HIGH THEN SUDDENLY IF GOES DOWN TOO TO AROUND 70'S SYSTOLIC.
[2021-06-05] VITALS (26 sets, daily range): BP systolic 81–175; BP diastolic 35–101
[2021-06-05] MEDS: Z-GUARD PASTE TP SCH ×2 (03:00→13:00)
[2021-06-05] MEDS: NYSTATIN POW 100 MU/GM 15 GM BTL TP SCH ×2 (04:00→13:00)
[2021-06-05 05:41] LABS: BASOPHILS % (AUTO) 0.2 % (0.0-2.0); EOSINOPHILS # (AUTO) 0.1 K/uL (0-0.4); EOSINOPHILS % (AUTO) 0.8 % (0.0-4.0); HEMATOCRIT 35.8 % (36-52); HEMOGLOBIN 12.1 g/dL (12.0-18.0); LYMPHOCYTES % (AUTO) 11.2 % (20.5-51.1); MEAN CORPUSCULAR HEMOGLOBIN 31 pg (27-31); MEAN CORPUSCULAR HGB CONC 34 g/dL (33-37); MEAN CORPUSCULAR VOLUME 92.4 fL (80-94); MONOCYTES % (AUTO) 11.7 % (1.7-9.3); NEUTROPHILS # (AUTO) 6.4 K/uL (1.8-7.7); NEUTROPHILS % (AUTO) 76.1 % (42.2-75.2); PLATELET COUNT (AUTO) 87 K/uL (140-450); RED BLOOD CELL COUNT(AUTO) 3.88 MIL/uL (4.20-6.10); RED CELL DISTRIBUTION WIDTH 15.8 % (11.6-13.7); WHITE BLOOD COUNT (AUTO) 8.5 K/uL (4.8-10.8)
[2021-06-05] MEDS: MIDODRINE 5 MG TAB PO SCH ×4 (06:16→17:58)
[2021-06-05] MEDS: BLOOD GLUCOSE MONITORING 1 DEV DEV FS SCH ×4 (06:16→18:16)
--- NOTE | 2021-06-05 06:30 | NUR ---
PATIENT REFUSED HIS ORAL MEDICATION AND NOTICED PATIENT IS BECOMING MORE CONFUSE. STILL ON LEVOPHED DRIP
--- NOTE | 2021-06-05 07:15 | NUR ---
RECEIVED REPORT FROM NIGHT NURSE. PATIENT ORIENTED TO PERSON ONLY. RESTING COMFORTABLY.
[2021-06-05 07:44] LABS: ANION GAP 16.2 (8-16); CARBON DIOXIDE 24.9 mmol/L (21-32); CHLORIDE 104 mmol/L (98-107); CREATININE 2.7 mg/dL (0.6-1.3); GLUCOSE 129 mg/dL (74-106); POTASSIUM 4.1 mmol/L (3.5-5.1); SODIUM SERUM 141 mmol/L (136-145); UREA NITROGEN, BLOOD 34 mg/dL (7-18)
--- NOTE | 2021-06-05 08:00 | NUR ---
PATIENT AWAKE, ORIENTED TO PERSON. REORIENTED TO PLACE AND DATE. PATIENT SPEAKS WORDS BUT GARBLED. MOVES ALL EXTREMITIES. PULLS AT BLANKETS AND GOWN. LEFT WRIST RESTRAINT ON. FOLLOWS COMMANDS TO INFORMATION SERVICES ASSISTANT HANDS. HEART SOUNDS REGULAR. MONITOR WITH SR. ANTERIOR LATERAL LUNG SOUNDS DIMINISHED BILATERALLY. O2 NC AT 3L. SAO2 IN 90'S. ABDOMEN SOFT WITH HYPOACTIVE BOWEL SOUNDS. MENDEZ IN PLACE WITH DARK HEBERT URINE. LEFT BKA. RIGHT LOWER LEG DRESSING DRY AND INTACT. LEVO AT 10MCG DECREASED TO 6 MCG/ BP SOMEWHAT LABILE.
[2021-06-05] MEDS: SKINTEGRITY HYDROGEL TP SCH (09:00)
[2021-06-05] MEDS: metOLazone 5 MG TAB PO SCH (09:00)
--- NOTE | 2021-06-05 09:00 | NUR ---
BP ELEVATED. LEVO TITRATED DOWN TO OFF BUT WITH DROP OF SBP TO 80'S TURNED BACK TO 4MCG/MIN
[2021-06-05] MEDS: FUROSEMIDE 40 MG/4 ML VIAL IVP SCH ×2 (09:36→20:20)
--- NOTE | 2021-06-05 10:15 | NUR ---
POWER EQUIPMENT TECHNOLOGY INSTRUCTOR HERE AND STARTING DIAYLYSIS.
--- NOTE | 2021-06-05 12:23 | NUR ---
06/05/21 RD FOLLOW UP COMPLETED PLEASE REFER TO NUTRITION ASSESSMENT UNDER CARE ACTIVITY FOR ESTIMATED NUTRITIONAL NEEDS. 1. WHEN/IF MEDICALLY APPROPRIATE, CONTINUE CARDIAC, MECHANICAL SOFT DIET TOLERATED 2. WHEN PT ON PO DIET, RECOMMEND GABRIEL BID AND ENSURE BID PER RD PROTOCOL 3. RD TO FOLLOW-UP 2-3 DAYS, HIGH RISK BETTY MCCLURE RD
[2021-06-05] MEDS: NON ADHERENT DRESSING TP SCH (13:00)
[2021-06-05] MEDS: CEFEPIME 2,000 MG in DEXTROSE 5% 100 ML IV SCH (13:31)
--- NOTE | 2021-06-05 19:16 | NUR ---
ENDORSED PT TO MEDICINE AND HEALTH SERVICE MANAGER NURSE FOR CONTINUOUS OF CARE.
--- NOTE | 2021-06-05 19:30 | NUR ---
ASSUMED CARE OF PT.INITIAL ASSESSMENT COMPLETED.PT CONFUSED.SR WITH 1ST DEGREE AV BLOCK/BBB NOTED ON MONITOR.ON 02NC AT 3LPM.W/JORDON MIDLINE INFUSING NS AT 5ML/HR.PT MAINTAINED ON NPO EXCEPT MEDS.ABDOMEN LARGE, SOFT.W/MENDEZ CATHETER TO BSD DRAINING YELLOW URINE.W/LT BKA. W/WOUND TO RLE, EXCORIATION NOTED TO PERINEAL AND SACRAL AREA.FLACC 0.REPOSITIONED.
--- NOTE | 2021-06-05 20:19 | NUR ---
PHONE CALL TO DR SAUNDRA ARRIOLA, SKOOG MACHINE OPERATOR; PT ON HEPARIN , PLATELET 87; PER OK TO GIVE HEPARIN
--- NOTE | 2021-06-05 20:42 | NUR ---
2034 PATIENT REFUSED TO PUT BIPAP MASK ON. PT BECAME COMBATIVE. BIPAP IS ON STANDBY BY PATIENTS BED.PLACED PT BACK ON 3LNCF
--- NOTE | 2021-06-05 21:18 | NUR ---
PATIENT WAS RESTRAINED AND ABLE TO PUT PT ON BIPAP IPAP 16 EPAP 6 RR 18 FIO2 40%. WILL TITRATE FIO2
[2021-06-06] VITALS (25 sets, daily range): BP systolic 92–165; BP diastolic 44–105
--- NOTE | 2021-06-06 | NUR ---
PT DOZING ON AND OFF; PERIODS OF CONFUSION STILL NOTED; TRYING TO REMOVE BIPAP; RE ORIENTED.
[2021-06-06] MEDS: Z-GUARD PASTE TP SCH ×2 (01:08→13:16)
[2021-06-06] MEDS: NYSTATIN POW 100 MU/GM 15 GM BTL TP SCH ×2 (01:08→13:16)
--- NOTE | 2021-06-06 03:00 | NUR ---
PTS CONDITION REMAINS UNCHANGED.STILL ON BIPAP FIO2 30%.PT STILL WITH BOUTS OF CONFUSION, NOT REMOVING BIPAP THOUGH.0/10 PAIN.REPOSITIONED.
[2021-06-06] MEDS: BLOOD GLUCOSE MONITORING 1 DEV DEV FS SCH ×4 (06:00→18:50)
--- NOTE | 2021-06-06 06:00 | NUR ---
BS 103; PT PINCHING AND RESTLESS THE WHOLE TIME ACCU CHECK WAS DONE; REFUSED P.O MEDS.
--- NOTE | 2021-06-06 06:03 | NUR ---
Called and spoke with Dr Quintana for downgrading pt Menard to tele; told Dr Quintana that pt is on BIPAP and no drips. Dr Quintana stated that he does not feel that pt is stable to downgrade with BIPAP. Told Dr Quintana that [facility] has pt with BIPAP also; he stated that he still does not feel that pt is stable to be downgraded to tele with BIPAP, and he told me to ask the product marketing analyst
[2021-06-06] MEDS: MIDODRINE 5 MG TAB PO SCH ×3 (06:39→19:28)
--- NOTE | 2021-06-06 07:05 | NUR ---
RECEIVED BEDSIDE REPORT FROM SHORTY CARRINGTON FOR CONTINUITY OF CARE. PT AAOX1, LETHARGIC. SUPINE IN THE BED. ON BIPAP R 18, FIO2 40%, IPAP 16, EPAP 6. SINUS RHYTHM ON MONITOR. JORDON MIDLINE PATENT INTACT INFUSING NS TKO AT 5 ML/H. F/C IN PLACE, DRAINING TO GRAVITY. SKIN NOT INTACT, SEE WOUND ASSESSMENT. L BKA. CALL LIGHT WITHIN REACH, STANDARD PRECAUTIONS IN PLACE. SAFETY PRECAUTIONS MET. INITIAL ASSESSMENT COMPLETE, WILL CONTINUE TO MONITOR.
--- NOTE | 2021-06-06 08:10 | NUR ---
REMOVED PATIENT FROM BIPAP TO MASK PLACED ON HUMIDIFIED SUPPLEMENTAL OXYGEN AT 3 LPM VIA NC SATURATION 96%
--- NOTE | 2021-06-06 08:10 | NUR ---
RT AT BEDSIDE SWITCHING PT FROM BIPAP TO NC AT 3L.
--- NOTE | 2021-06-06 08:10 | NUR ---
SEEN AND EXAMINED BY DR HORN. ORDERS CARRIED OUT.
[2021-06-06] MEDS ORDERED: LORazepam 2 MG/ML VIAL IVP PRN (08:30)
[2021-06-06] MEDS: SKINTEGRITY HYDROGEL TP SCH (08:50)
[2021-06-06] MEDS ORDERED: FUROSEMIDE 20 MG/2 ML VIAL IVP ONE (09:45)
[2021-06-06] MEDS: FUROSEMIDE 40 MG/4 ML VIAL IVP SCH ×2 (09:50→20:06)
[2021-06-06 10:20] LABS: BASOPHILS % (AUTO) 0.4 % (0.0-2.0); EOSINOPHILS # (AUTO) 0.1 K/uL (0-0.4); EOSINOPHILS % (AUTO) 2.2 % (0.0-4.0); HEMOGLOBIN 11.4 g/dL (12.0-18.0); LYMPHOCYTES # (AUTO) 0.6 K/uL (2.0-11.5); LYMPHOCYTES % (AUTO) 13.6 % (20.5-51.1); MEAN CORPUSCULAR HEMOGLOBIN 31 pg (27-31); MEAN CORPUSCULAR HGB CONC 34 g/dL (33-37); MEAN CORPUSCULAR VOLUME 91.5 fL (80-94); MONOCYTES # (AUTO) 0.5 K/uL (0.8-1.0); MONOCYTES % (AUTO) 11.5 % (1.7-9.3); NEUTROPHILS # (AUTO) 3.4 K/uL (1.8-7.7); NEUTROPHILS % (AUTO) 72.3 % (42.2-75.2); PLATELET COUNT (AUTO) 61 K/uL (140-450); RED BLOOD CELL COUNT(AUTO) 3.71 MIL/uL (4.20-6.10); RED CELL DISTRIBUTION WIDTH 15.5 % (11.6-13.7); WHITE BLOOD COUNT (AUTO) 4.8 K/uL (4.8-10.8)
[2021-06-06] MEDS: DEXMEDETOMIDINE HCL 400 MCG in NACL 0.9% 96 ML IV PRN ×2 (10:20→19:33)
--- NOTE | 2021-06-06 10:20 | NUR ---
PRECEDEX DRIP STARTED AND INFUSING AT 0.2 MCG/KG/HR. PT IS PINCHING STAFF AND TRYING TO REMOVE NASAL CANNULA.
[2021-06-06 10:43] LABS: ALBUMIN 2.1 g/dL (3.4-5.0); ASPARTATE AMINOTRANSFERASE 37 U/L (15-37); CARBON DIOXIDE 28.6 mmol/L (21-32); CHLORIDE 101 mmol/L (98-107); CREATININE 2.3 mg/dL (0.6-1.3); GLUCOSE 104 mg/dL (74-106); PHOSPHORUS 3.2 mg/dL (2.5-4.9); POTASSIUM 3.6 mmol/L (3.5-5.1); SODIUM SERUM 138 mmol/L (136-145); TOTAL BILIRUBIN 0.7 mg/dL (0.0-1.0); UREA NITROGEN, BLOOD 29 mg/dL (7-18)
[2021-06-06 11:09] LABS: MAGNESIUM 1.8 mg/dL (1.8-2.4)
[2021-06-06] MEDS: metOLazone 5 MG TAB PO SCH (11:30)
--- NOTE | 2021-06-06 11:30 | NUR ---
NGT INSERTED PER MD ORDER.
[2021-06-06] MEDS: NON ADHERENT DRESSING TP SCH (13:16)
[2021-06-06] MEDS: CEFEPIME 2,000 MG in DEXTROSE 5% 100 ML IV SCH (13:18)
--- NOTE | 2021-06-06 15:40 | NUR ---
[place] TRANSFERRED TO CT FOR CT HEAD.
--- NOTE | 2021-06-06 17:40 | NUR ---
PT CLEANED AND REPOSITIONED. TOLERATED WELL. WILL CONTINUE TO MONITOR.
--- NOTE | 2021-06-06 19:00 | NUR ---
PHONE CALL TO DR ARRIOLA,FUN HOUSE ATTENDANT.NOTIFIED MD OF PTS HEART RATE GOING DOWN TO 33; BP 147/54; PER DR ARRIOLA, ITS OK LONG THE BP IS OK; TO START DOPAMINE ONCE MEAN PRESSURE IS BELOW 65.
--- NOTE | 2021-06-06 19:10 | NUR ---
ENDORSED BEDSIDE REPORT TO SHORTY CARRINGTON FOR CONTINUITY OF CARE.
--- NOTE | 2021-06-06 19:30 | NUR ---
ASSUMED CARE OF PT.INITIAL ASSESSMENT COMPLETED.ON 02NC AT 3LPM.W/JORDON MIDLINE INTACT, INFUSING NS AT 5ML/HR AND PRECEDEX DRIP 400MCG IN 96 ML NS AT 0.3MCG/KG/HR.RASS 0.ABDOMEN LARGE, SOFT.W/NGT TO RT NARES INTACT.PLACEMENT CHECKED.TO START NGT ORDERED.W/EMNDEZ CATHETER TO BSD DRAINING YELLOW URINE.W/LT BKA. W/WOUND TO RLE, EXCORIATION NOTED TO PERINEAL AND SACRAL AREA.FLACC 0.REPOSITIONED.
--- NOTE | 2021-06-06 20:00 | NUR ---
NGT FEEDING NEPRO STARTED ORDERED, STARTED AT 10ML/HR.WILL CONTINUE TO MONITOR PT.
[2021-06-07] VITALS (26 sets, daily range): BP systolic 101–154; BP diastolic 40–73
[2021-06-07] MEDS: BLOOD GLUCOSE MONITORING 1 DEV DEV FS SCH ×4 (00:15→18:19)
[2021-06-07] MEDS: Z-GUARD PASTE TP SCH ×2 (00:16→14:00)
[2021-06-07] MEDS: NYSTATIN POW 100 MU/GM 15 GM BTL TP SCH ×2 (00:16→13:00)
--- NOTE | 2021-06-07 01:00 | NUR ---
BM NOTED.MODERATE AMT OF BLACK WATERY STOOL.PT CLEANED.DRESSING TO SACRUM CHANGED.CREAM APPLIED TO PERINEAL AREA.REPOSITIONED
[2021-06-07 06:10] LABS: BASOPHILS % (AUTO) 0.3 % (0.0-2.0); EOSINOPHILS # (AUTO) 0.1 K/uL (0-0.4); EOSINOPHILS % (AUTO) 0.9 % (0.0-4.0); HEMATOCRIT 37.7 % (36-52); HEMOGLOBIN 12.4 g/dL (12.0-18.0); LYMPHOCYTES # (AUTO) 0.5 K/uL (2.0-11.5); LYMPHOCYTES % (AUTO) 5.2 % (20.5-51.1); MEAN CORPUSCULAR HEMOGLOBIN 30 pg (27-31); MEAN CORPUSCULAR HGB CONC 33 g/dL (33-37); MEAN CORPUSCULAR VOLUME 91.9 fL (80-94); MONOCYTES # (AUTO) 0.7 K/uL (0.8-1.0); MONOCYTES % (AUTO) 6.6 % (1.7-9.3); NEUTROPHILS # (AUTO) 8.9 K/uL (1.8-7.7); PLATELET COUNT (AUTO) 49 K/uL (140-450); WHITE BLOOD COUNT (AUTO) 10.3 K/uL (4.8-10.8)
[2021-06-07] MEDS: MIDODRINE 5 MG TAB PO SCH ×3 (06:22→19:00)
[2021-06-07 06:40] LABS: ALBUMIN 2.1 g/dL (3.4-5.0); ANION GAP 11.2 (8-16); ASPARTATE AMINOTRANSFERASE 42 U/L (15-37); CHLORIDE 102 mmol/L (98-107); CREATININE 2.4 mg/dL (0.6-1.3); GLUCOSE 118 mg/dL (74-106); POTASSIUM 4.2 mmol/L (3.5-5.1); SODIUM SERUM 139 mmol/L (136-145); TOTAL BILIRUBIN 0.7 mg/dL (0.0-1.0); UREA NITROGEN, BLOOD 36 mg/dL (7-18)
--- NOTE | 2021-06-07 08:00 | NUR ---
RECEIVED REPORT FROM LAUNDRY MACHINE OPERATOR. INITIAL ASSESSMENT COMPLETED. ON BIPAP. RIGHT UPPER ARM MIDLINE IN TACT. NS INFUSING AT 5 ML/HR. NG TUBE TO RIGHT NARES INTACT. MENDEZ CATH DRAINING CLEAR YELLOW URINE.
[2021-06-07] MEDS: FUROSEMIDE 40 MG/4 ML VIAL IVP SCH ×2 (08:19→21:15)
--- NOTE | 2021-06-07 08:30 | NUR ---
D/C PRECEDEX AND KEEP MAP ABOVE [address] SAVAGE.
--- NOTE | 2021-06-07 08:45 | NUR ---
DR. HORN ASSESSED PATIENT. ORDERED TO STOP DIALYSIS DUE TO GOOD URINE OUTPUT. DIALYSIS COMPANY NOTIFIED.
[2021-06-07] MEDS: SKINTEGRITY HYDROGEL TP SCH (09:00)
--- NOTE | 2021-06-07 09:00 | NUR ---
0900 MEDS (LASIX, HEPARIN, SEROQUEL) ADMINISTERED WITH ZEB REID. NG TUBE RESIDUAL 10 CC.
[2021-06-07] MEDS: QUEtiapine FUMARATE 25 MG TAB PO SCH ×2 (09:42→21:16)
--- NOTE | 2021-06-07 10:00 | NUR ---
DR. HDZ ASSESSED PATIENT. REQUEST ORDER FOR ABGs. ORDER PLACED.
--- NOTE | 2021-06-07 10:30 | NUR ---
DR. ARRIOLA ASSESSED PATIENT. NO NEW ORDERS.
--- NOTE | 2021-06-07 11:46 | NUR ---
06/07/21 RD FOLLOW UP COMPLETED PLEASE REFER TO NUTRITION ASSESSMENT UNDER CARE ACTIVITY FOR ESTIMATED NUTRITIONAL NEEDS. 1. RECOMMENDED NEPRO WITH A GOAL RATE OF 40 ML/HR -FWF: 100 ML Q8H OR PER MD -START AT 10 ML/HR AND INCREASE BY 10 ML Q4H TOLERATED -WILL PROVIDE 1728 KCAL AND 78 GM PROTEIN, MEETING ESTIMATED NUTRITIONAL GOALS 2. RD TO FOLLOW-UP 2-3 DAYS, HIGH RISK BETTY MCCLURE RD
--- NOTE | 2021-06-07 12:00 | NUR ---
PATIENT CLEANED AND TURNED. WOUND CARE PERFORMED. BLOOD SUGAR CHECKED AND INSULIN COVERAGE PROVIDED ORDERED.
[2021-06-07] MEDS: NON ADHERENT DRESSING TP SCH (13:00)
[2021-06-07] MEDS: INSULIN LISPRO SLIDING SCALE 100 UNITS/ML VIAL SUBQ PRN ×2 (13:18→18:36)
[2021-06-07] MEDS: CEFEPIME 2,000 MG in DEXTROSE 5% 100 ML IV SCH (13:58)
--- NOTE | 2021-06-07 15:30 | NUR ---
MIDODRINE HELD DUE TO BP 132/65.
--- NOTE | 2021-06-07 15:40 | NUR ---
PATIENT TEMP 89.7. PATIENT PLACED ON WARMER.
--- NOTE | 2021-06-07 16:50 | NUR ---
CALLED PHARMACY TO REQUEST NYSTATIN POWDER, SPOKE WITH JEANNINE. WILL WAIT FOR POWDER TO ARRIVE.
--- NOTE | 2021-06-07 17:27 | NUR ---
0900 MEDS ADMINISTERED (ZAROXOLYN) WITH RN FRANKLIN. NG RESIDUAL 10 CC.
--- NOTE | 2021-06-07 19:28 | NUR ---
PATIENT ENDORSED TO BUILDING CONSTRUCTION INSPECTOR NURSE SHANTELLE
--- NOTE | 2021-06-07 19:30 | NUR ---
RECEIVED PATIENT ON BED WITH HOB ELEVATED TO 30 DEGREE; OBTUNDED, VENTILATING ON 40% FI02 THRU BIPAR. SO2 98%. CARDIACSCOPE SHOWS ON SINUS DEAN WITH BUNDLE BRANCH BLOCK HR 54/MIN. IVF IN PROGRESS NORMAL SALINE KVO VIA MIDLINE ACCESS TO RIGHT UPPER ARM; PATENT AND INTACT. ABDOMEN IS SOFT, VERY OBESE, ACTIVE BOWEL SOUNDS. ON CONTINOUS TUBE FEEDING NEPRO AT 40 ML/HR; TOLERATED WITH MINIMAL RESIDUAL. WITH MEDNEZ CATH IN SITU; DRAINING TO CLEAR YELLOW URINE OUTPUT; PATENT AND INTACT.
[2021-06-07] MEDS ORDERED: DEXMEDETOMIDINE HCL 400 MCG in NACL 0.9% 96 ML IV PRN (21:20)
[2021-06-07] MEDS ORDERED: DEXMEDETOMIDINE HCL 100 MCG/ML 2 ML VIAL IV ONE (21:25)
[2021-06-08] VITALS (24 sets, daily range): BP systolic 86–131; BP diastolic 31–82
[2021-06-08] MEDS: Z-GUARD PASTE TP SCH ×2 (03:30→13:48)
[2021-06-08] MEDS: NYSTATIN POW 100 MU/GM 15 GM BTL TP SCH ×2 (03:30→13:48)
--- NOTE | 2021-06-08 04:00 | NUR ---
HAD BM TO MODERATE AMOUNT OF PASTY BLACKISH TO GRAYISH STOOL; MORNING BED BATH DONE; WOUND CARE DONE.
[2021-06-08] MEDS: BLOOD GLUCOSE MONITORING 1 DEV DEV FS SCH ×4 (06:00→18:05)
[2021-06-08] MEDS: MIDODRINE 5 MG TAB PO SCH ×3 (06:30→18:57)
--- NOTE | 2021-06-08 07:20 | NUR ---
RECEIVED REPORT FROM HUMAN RESOURCES BENEFITS ASSISTANT NURSE. PT IS RESTING IN BED AND IN NO SIGN OF DISTRESS. PT HAS A MIDLINE ON THE RIGHT ARM WITH NS RUNNING AT 10 ML/HR. PT IS ON IPAP AT 15, RATE OF 18 AND O2 AT 40%. PT IS HAS A NG TUBE ON THE RIGHT NARE WIT TUBE FEEDING RUNNING AT 40 ML/HR, WATER FLUSHES OF 150 ML Q6H. 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 MENDEZ IN PLACE AND INTACT. ALL SAFETY PRECAUTIONS ARE IN PLACE AND WILL CONTINUE TO MONITOR.
[2021-06-08] MEDS: FUROSEMIDE 40 MG/4 ML VIAL IVP SCH ×2 (09:00→20:44)
--- NOTE | 2021-06-08 09:00 | NUR ---
CERTAIN AM MEDICATIONS WERE NOT GIVEN DUE TO PT CONDITION AND LAB VALUES.
[2021-06-08] MEDS: QUEtiapine FUMARATE 25 MG TAB PO SCH ×2 (09:36→20:44)
[2021-06-08] MEDS: SKINTEGRITY HYDROGEL TP SCH (09:37)
[2021-06-08 09:44] LABS: ANION GAP 11.1 (8-16); CARBON DIOXIDE 31.4 mmol/L (21-32); CHLORIDE 101 mmol/L (98-107); GLUCOSE 144 mg/dL (74-106); POTASSIUM 3.5 mmol/L (3.5-5.1); SODIUM SERUM 140 mmol/L (136-145); UREA NITROGEN, BLOOD 49 mg/dL (7-18)
--- NOTE | 2021-06-08 12:00 | NUR ---
PT IS RESTING IN BED AND NO SIGN OF DISTRESS NOTED.
[2021-06-08] MEDS: CEFEPIME 2,000 MG in DEXTROSE 5% 100 ML IV SCH (13:47)
[2021-06-08] MEDS: NON ADHERENT DRESSING TP SCH (13:48)
[2021-06-08] MEDS ORDERED: POTASSIUM CHLORIDE 20% 40 MEQ/15 ML UDC GT SCH (17:00)
[2021-06-08] MEDS: INSULIN LISPRO SLIDING SCALE 100 UNITS/ML VIAL SUBQ PRN (18:00)
--- NOTE | 2021-06-08 19:25 | NUR ---
ENDORSED CARE TO FASTENER SEWING MACHINE OPERATOR NURSE FOR CONTINUITY OF CARE.
--- NOTE | 2021-06-08 19:30 | NUR ---
REPORT RECEIVED AT BEDSIDE FROM VEE CARRINGTON FRO CONTINUITY OF CARE. PT LAYING IN BED. NO SIGN OF DISTRESS AT THIS TIME. MIDLINE ALREADY IN PLACE TO RIGHT ARM PATENT AND INTACT WITH NS RUNNING AT 10 ML/HR. PT IS ON IPAP @15, RATE @18 AND O2 @60%. NG TUBE TO RIGHT NARE WITH NEPRO RUNNING AT 40 ML/HR, 150ML WATER FLUSH Q6H. 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 SEE WOUND ASSESSMENT. F/C ALREADY IN PLACE AND DRAINING TO GRAVITY. INITIAL ASSESSMENT COMPLETED. ALL SAFETY MEASURES IN PLACE. BED IN LOWEST POSITION WITH CALL LIGHT WITHIN REACH. WILL CONTINUE TO MONITOR.
--- NOTE | 2021-06-08 22:30 | NUR ---
PT OBSERVED. NO SIGNS OF DISTRESS NOTED AT THIS TIME. VSS WITH DEAN HEART RATE @58 BPM. ALL SAFETY MEASURES IN PLACE. CALL LIGHT WITHIN REACH. WILL CONTINUE TO MONITOR.
[2021-06-09] VITALS (26 sets, daily range): BP systolic 79–132; BP diastolic 37–80
[2021-06-09] MEDS: INSULIN LISPRO SLIDING SCALE 100 UNITS/ML VIAL SUBQ PRN ×4 (00:39→18:48)
[2021-06-09] MEDS: NYSTATIN POW 100 MU/GM 15 GM BTL TP SCH ×2 (01:00→13:09)
[2021-06-09] MEDS: Z-GUARD PASTE TP SCH ×2 (01:00→13:09)
--- NOTE | 2021-06-09 01:00 | NUR ---
AM CARE, ORAL CARE, AND DRESSING CHANGE PROVIDED. TOLERATED WELL. ALL SAFETY MEASURES IN PLACE. CALL LIGHT WITHIN REACH AND BED IN LOWEST POSITION. WILL CONTINUE TO MONITOR.
--- NOTE | 2021-06-09 01:23 | NUR ---
CALLED [facility] SENIOR ORACLE DEVELOPER TO REPORT ABG RESULTS AND CURRENT STATE PT RESULTS & ALOC STATUS REPORTED TO DR SIMON PER DR SIMON HOLD INTUBATION PT TO REMAIN ON NIV AND HAVE RN CALL HIM
--- NOTE | 2021-06-09 01:30 | NUR ---
SPOKE TO DR. SIMON VIA TELEPHONE. MD UPDATED ON PT STATUS. RECEIVED ORDERS TO ADMINISTER NARCAN 4MG AND MONITOR. MD TO SEE PT IN THE MORNING. WILL CONTINUE TO MONITOR.
[2021-06-09] MEDS ORDERED: NALOXONE 0.4 MG/ML VIAL IVP ONE (01:45)
[2021-06-09] MEDS ORDERED: NALOXONE PFS 2 MG/2 ML SYR ONE ×3 (01:49→02:05)
[2021-06-09] MEDS ORDERED: PROPOFOL 1000 MG/100 ML PREMIX 100 ML IV ONE (05:24)
--- NOTE | 2021-06-09 05:30 | NUR ---
DR. SIMON AND RT AT BEDSIDE FOR INTUBATION. INTUBATION MEDICATIONS ADMINISTERED PER MDs ORDERS. ETT TO VENT SIZE 8 24 TO THE TEETH; A/C PRVC FIO2 @100%, VT @500, RATE @18 , AND PEEP @5. O2 SAT @91%. ALL SAFETY MEASURES IN PLACE. CALL LIGHT WITHIN REACH AND BED IN LOWEST POSITION. WILL CONTINUE TO MONITOR.
[2021-06-09] MEDS: BLOOD GLUCOSE MONITORING 1 DEV DEV FS SCH ×4 (06:00→18:48)
[2021-06-09 06:31] LABS: ANION GAP 10.2 (8-16); CARBON DIOXIDE 32.3 mmol/L (21-32); CHLORIDE 101 mmol/L (98-107); CREATININE 3.6 mg/dL (0.6-1.3); GLUCOSE 181 mg/dL (74-106); POTASSIUM 3.5 mmol/L (3.5-5.1); SODIUM SERUM 140 mmol/L (136-145); UREA NITROGEN, BLOOD 60 mg/dL (7-18)
--- NOTE | 2021-06-09 06:39 | NUR ---
DR SIMON ARRIVED @ BEDSIDE AND PT WAS INTUBATED BILAT BS AUDIBLE, COLOR CHANGE ON EZ CAP, CONDENSATION IN ETT, CXR WAS TAKEN PENDING PLACEMENT INTERP PT WAS INTUBATED W/ 8.0 ETT SECURED AT 24CM PT PLACED ON PRVC 500 +5 f18 100% VENT PLUGGED INTO RED OUTLET W/ ALARMS ON AND AUDIBLE VERBAL ORDER FROM DR SIMON ARE FOLLOWS O2> 90% OK TO TITRATE FIO2 + PEEP TOLERATED POST INTUBATION (1 h) ABG
[2021-06-09] MEDS ORDERED: PROPOFOL 1000 MG/100 ML PREMIX 100 ML IV PRN (07:00)
--- NOTE | 2021-06-09 07:15 | NUR ---
RECEIVED REPORT FROM KNOWLEDGE ARCHITECT NURSE. PT IS RESTING IN BED AND IN NO SIGN OF DISTRESS. PT HAS A MIDLINE ON THE RIGHT ARM WITH NS RUNNING AT 10 ML/HR. PT IS ON ON MECHANICAL VENTILATION AC PRVC FIO2 100, TV 500RATE OF 18 AND PEEP 5. PT IS HAS A NG TUBE ON THE RIGHT NARE WIT TUBE FEEDING RUNNING AT 40 ML/HR, WATER FLUSHES OF 150 ML Q6H. 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 MENDEZ IN PLACE AND INTACT. ALL SAFETY PRECAUTIONS ARE IN PLACE AND WILL CONTINUE TO MONITOR.
--- NOTE | 2021-06-09 07:18 | NUR ---
GAVE REPORT AT BEDSIDE TO DAYSHIFT RN FOR CONTINUITY OF CARE.
[2021-06-09] MEDS: MIDODRINE 5 MG TAB PO SCH ×3 (07:45→19:00)
[2021-06-09] MEDS: QUEtiapine FUMARATE 25 MG TAB PO SCH ×2 (09:30→20:30)
[2021-06-09] MEDS: SKINTEGRITY HYDROGEL TP SCH (09:30)
[2021-06-09] MEDS: FUROSEMIDE 40 MG/4 ML VIAL IVP SCH (09:30)
--- NOTE | 2021-06-09 10:00 | NUR ---
DR. ARRIOLA AT BEDSIDE.
--- NOTE | 2021-06-09 11:50 | NUR ---
WOUND CARE RE-EVALUATION NOTE: SKIN ASSESSMENT DONE. PT. IS INTUBATED AND SEDATED. SKIN CONDITION NOT HEALING DUE TO PT. MEDICAL CONDITION IS DETERIORATING. NOTICE PT. WITH LARGE AMOUNT OF BLACK LIQUIDS FOUL SMELL STOOL, PRIMARY RN NOTIFIED. INTEGUMENTARY: -LEFT UPPER ARM AND LEFT LATERAL TRUNK OF BODY ECCHYMOSIS,SKIN MOIST AND INTACT -LEFT LOWER ABDOMINAL FOLD MULTIPLE PIN POINTS BLISTERING SKIN -INTERTRIGO LOWER ABDOMINAL FOLDS, AND GROINS MULTIPLE EROSIONS, PINK AND MOIST -SEVERE MOISTURE ASSOCIATED DERMATITIS TO SCROTAL AND ELENO-RECTAL, MULTIPLE EROSIONS -RIGHT BUTTOCK PRESSURE INJURY STAGE 3 8X5X0.2CM WOUND BED 100% GRANULATION TISSUE, MOIST, NO ODOR, ELENO WOUND SKIN NON-BLANCHABLE REDNESS WITH THIN EASILY TO TORN SKIN -LEFT BUTTOCK PRESSURE INJURY STAGE 7X2X0.2CM WOUND BED 100% GRANULATION TISSUE, MOIST, NO ODOR, ELENO WOUND SKIN NON-BLANCHABLE REDNESS WITH THIN EASILY TO TORN SKIN - SACRALCOCCYX PRESSURE INJURY STAGE 3 5 X 3 X 0.2 CM. WOUND BED PINK, MOIST, 90% GRANULATING, 10% YELLOW SLOUGH, MINIMAL SEROUS DRAINAGE, NO ODOR. ELENO-WOUND MOIST, PINK AND DENUDED SKIN - RIGHT ISCHIUM PRESSURE INJURY UN-STAGEABLE WITH 8X4XCM. WOUND BED 30% GRANULATING, 80% YELLOW SLOUGH, MINIMAL SANGUINOUS DRAINAGE, NO ODOR. ELENO-WOUND SKIN MOIST AND RED - LEFT ISCHIUM PRESSURE INJURY STAGE 3 WITH 3X5CM. WOUND BED PINK, MOIST, 100% GRANULATING, MINIMAL SANGUINOUS DRAINAGE, NO ODOR. ELENO-WOUND HEALED SCAR -LEFT LOWER LEG PARTIAL THICKNESS SKIN LOSS 9X3X0.1CM, WOUND BED PINK AND DRY, NO ODOR, ELENO WOUND SKIN HEALING TISSUE, NO ODOR
--- NOTE | 2021-06-09 12:00 | NUR ---
PT SON CALLED FOR AN UPDATE.
[2021-06-09] MEDS: NON ADHERENT DRESSING TP SCH (13:09)
[2021-06-09] MEDS: CEFEPIME 2,000 MG in DEXTROSE 5% 100 ML IV SCH (13:30)
--- NOTE | 2021-06-09 19:15 | NUR ---
ENDORSED CARE TO BOTTOM TURNING LATHE TURNER NURSE FOR CONTINUITY OF CARE.
--- NOTE | 2021-06-09 19:35 | NUR ---
REPORT RECEIVED AT BEDSIDE FROM VEE CARRINGTON FRO CONTINUITY OF CARE. PT LAYING IN BED. MIDLINE ALREADY IN PLACE TO RIGHT ARM PATENT AND INTACT WITH NS RUNNING AT 10 ML/HR. ETT TO VENT A/C PRVC FIO2 @70%, VT @500, RATE @18, AND PEEP @5. NG TUBE TO RIGHT NARE WITH NEPRO RUNNING AT 40 ML/HR, 150ML WATER FLUSH Q6H. SKIN NOT INTACT, SEE WOUND ASSESSMENT. F/C ALREADY IN PLACE AND DRAINING TO GRAVITY. INITIAL ASSESSMENT COMPLETED. ALL SAFETY MEASURES IN PLACE. BED IN LOWEST POSITION WITH CALL LIGHT WITHIN REACH. WILL CONTINUE TO MONITOR.
[2021-06-09 20:28] LABS: BASOPHILS % (AUTO) 0.2 % (0.0-2.0); EOSINOPHILS # (AUTO) 0.2 K/uL (0-0.4); EOSINOPHILS % (AUTO) 1.1 % (0.0-4.0); HEMOGLOBIN 10.7 g/dL (12.0-18.0); LYMPHOCYTES # (AUTO) 0.8 K/uL (2.0-11.5); LYMPHOCYTES % (AUTO) 4.7 % (20.5-51.1); MEAN CORPUSCULAR HEMOGLOBIN 31 pg (27-31); MEAN CORPUSCULAR HGB CONC 33 g/dL (33-37); MEAN CORPUSCULAR VOLUME 91.6 fL (80-94); MONOCYTES # (AUTO) 0.8 K/uL (0.8-1.0); MONOCYTES % (AUTO) 5.1 % (1.7-9.3); NEUTROPHILS # (AUTO) 14.6 K/uL (1.8-7.7); NEUTROPHILS % (AUTO) 88.9 % (42.2-75.2); PLATELET COUNT (AUTO) 38 K/uL (140-450); RED BLOOD CELL COUNT(AUTO) 3.49 MIL/uL (4.20-6.10); RED CELL DISTRIBUTION WIDTH 14.8 % (11.6-13.7); WHITE BLOOD COUNT (AUTO) 16.4 K/uL (4.8-10.8)
[2021-06-09 20:55] LABS: ANION GAP 13.7 (8-16); CARBON DIOXIDE 27.5 mmol/L (21-32); CHLORIDE 99 mmol/L (98-107); GLUCOSE 180 mg/dL (74-106); POTASSIUM 3.2 mmol/L (3.5-5.1); SODIUM SERUM 137 mmol/L (136-145)
[2021-06-09 20:57] LABS: CREATININE 3.8 mg/dL (0.6-1.3); UREA NITROGEN, BLOOD 69 mg/dL (7-18)
--- NOTE | 2021-06-09 21:05 | NUR ---
SCHEDULED MEDS ADMINISTERED ORDERED. NADR NOTED. NO SIGNS OF DISTRESS NOTED. ALL SAFETY MEASURES IN PLACE. CALL LIGHT WITHIN REACH. WILL CONTINUE TO MONITOR.
--- NOTE | 2021-06-09 22:50 | NUR ---
PT TRANSFERRED TO ICU BED 3. TOLERATED WELL. NO SIGNS OF DISTRESS DURING TRANSFER. WILL CONTINUE TO MONITOR.
[2021-06-09] MEDS ORDERED: VANCOMYCIN PER PHARMACY MC PRN (23:20)
[2021-06-10] VITALS (28 sets, daily range): BP systolic 94–138; BP diastolic 40–55
[2021-06-10] MEDS: INSULIN LISPRO SLIDING SCALE 100 UNITS/ML VIAL SUBQ PRN ×4 (00:38→18:16)
[2021-06-10] MEDS: Z-GUARD PASTE TP SCH ×2 (01:31→12:32)
[2021-06-10] MEDS: NYSTATIN POW 100 MU/GM 15 GM BTL TP SCH ×2 (01:31→12:32)
--- NOTE | 2021-06-10 01:45 | NUR ---
PT OBSERVED. NO SIGNS OF DISTRESS NOTED AT THIS TIME. VSS. WILL CONTINUE TO MONITOR.
[2021-06-10] MEDS: ONDANSETRON 4 MG/2 ML VIAL IVP PRN (04:07)
[2021-06-10] MEDS: PIPERACILLIN/TAZOBACTAM 2.25 GM in DEXTROSE 5% 50 ML IV SCH ×3 (05:00→20:54)
[2021-06-10] MEDS ORDERED: PIPERACILLIN/TAZOBACTAM 2.25 GM VIAL IV ONE ×2 (05:25→20:31)
[2021-06-10] MEDS ORDERED: VANCOMYCIN 1GM/DEXT 5% PREMIX 200 ML IV SCH (05:30)
[2021-06-10] MEDS: BLOOD GLUCOSE MONITORING 1 DEV DEV FS SCH ×4 (06:00→18:15)
[2021-06-10 06:12] LABS: BASOPHILS % (AUTO) 0.2 % (0.0-2.0); EOSINOPHILS # (AUTO) 0.2 K/uL (0-0.4); EOSINOPHILS % (AUTO) 1.1 % (0.0-4.0); HEMATOCRIT 33.9 % (36-52); HEMOGLOBIN 11.2 g/dL (12.0-18.0); LYMPHOCYTES # (AUTO) 1.1 K/uL (2.0-11.5); LYMPHOCYTES % (AUTO) 5.4 % (20.5-51.1); MEAN CORPUSCULAR HEMOGLOBIN 31 pg (27-31); MEAN CORPUSCULAR HGB CONC 33 g/dL (33-37); MEAN CORPUSCULAR VOLUME 92.2 fL (80-94); MONOCYTES # (AUTO) 1.5 K/uL (0.8-1.0); MONOCYTES % (AUTO) 7.8 % (1.7-9.3); NEUTROPHILS % (AUTO) 85.5 % (42.2-75.2); PLATELET COUNT (AUTO) 45 K/uL (140-450); RED BLOOD CELL COUNT(AUTO) 3.68 MIL/uL (4.20-6.10); RED CELL DISTRIBUTION WIDTH 15.2 % (11.6-13.7); WHITE BLOOD COUNT (AUTO) 19.9 K/uL (4.8-10.8)
[2021-06-10] MEDS: DOPamine 400 MG/D5W PREMIX 250 ML IV PRN ×2 (06:23→17:46)
[2021-06-10] MEDS: MIDODRINE 5 MG TAB PO SCH ×3 (06:40→18:18)
--- NOTE | 2021-06-10 07:25 | NUR ---
GAVE REPORT AT BEDSIDE TO DAYSHIFT RN FOR CONTINUITY OF CARE.
--- NOTE | 2021-06-10 07:30 | NUR ---
RECEIVED REPORT FROM MAINTAINER CENTRAL OFFICE NURSE. PT IS RESTING IN BED. EYES CLOSED, RESPONSIVE ONLY TO TACTILE STIMULI, GAG AND CORNEAL REFLEX PRESENT. NO SIGN OF DISTRESS. PT HAS A MIDLINE ON THE RIGHT ARM WITH NS RUNNING AT 10 ML/HR, DOPAMINE AT 5MCG. ETT TO VENT AC PRVC FIO2 100, TV 500 RATE OF 18 AND PEEP 5. PT IS HAS A NG TUBE ON THE RIGHT NARE WIT TUBE FEEDING RUNNING AT 40 ML/HR, WATER FLUSHES OF 150 ML Q6H. SKIN NOT INTACT, REFER TO WOUND ASSESSMENT. MENDEZ IN PLACE AND INTACT. ALL SAFETY PRECAUTIONS ARE IN PLACE AND WILL CONTINUE TO MONITOR.
[2021-06-10] MEDS ORDERED: POTASSIUM CHLORIDE 20% 40 MEQ/15 ML UDC GT PRN (08:10)
[2021-06-10] MEDS: QUEtiapine FUMARATE 25 MG TAB PO SCH ×2 (08:59→20:54)
[2021-06-10] MEDS: SKINTEGRITY HYDROGEL TP SCH (09:00)
--- NOTE | 2021-06-10 09:30 | NUR ---
DUE MEDS GIVEN. ORAL CARE AND MENDEZ CARE DONE
[2021-06-10] MEDS ORDERED: VANCOMYCIN 1,000 MG in DEXTROSE 5% 250 ML IV SCH (10:00)
--- NOTE | 2021-06-10 11:30 | NUR ---
seen and examined by DR SOSA, NO NEW ORDERS
[2021-06-10] MEDS: NON ADHERENT DRESSING TP SCH (12:32)
--- NOTE | 2021-06-10 16:22 | NUR ---
06/10/21 RD FOLLOW UP COMPLETED PLEASE REFER TO NUTRITION PROGRESS NOTE UNDER CARE ACTIVITY FOR ESTIMATED NUTRITION NEEDS. RD RECOMMENDATIONS: 1. CONTINUE NEPRO WITH A GOAL RATE OF 40 ML/HR -FWF: 100 ML Q8H OR PER MD -START AT 10 ML/HR AND INCREASE BY 10 ML Q4H TOLERATED -WILL PROVIDE 1728 KCAL AND 78 GM PROTEIN, MEETING ESTIMATED NUTRITIONAL GOALS 2. RD TO FOLLOW-UP 2-3 DAYS, HIGH RISK BEVERLY COELLO, RD
[2021-06-10 16:40] LABS: BASOPHILS # (AUTO) 0.1 K/uL (0.00-0.22); BASOPHILS % (AUTO) 0.4 % (0.0-2.0); EOSINOPHILS # (AUTO) 0.2 K/uL (0-0.4); EOSINOPHILS % (AUTO) 1.5 % (0.0-4.0); HEMATOCRIT 33.6 % (36-52); HEMOGLOBIN 11.1 g/dL (12.0-18.0); LYMPHOCYTES # (AUTO) 0.9 K/uL (2.0-11.5); LYMPHOCYTES % (AUTO) 5.8 % (20.5-51.1); MEAN CORPUSCULAR HEMOGLOBIN 30 pg (27-31); MEAN CORPUSCULAR HGB CONC 33 g/dL (33-37); MEAN CORPUSCULAR VOLUME 92.2 fL (80-94); MONOCYTES # (AUTO) 1.1 K/uL (0.8-1.0); MONOCYTES % (AUTO) 6.8 % (1.7-9.3); NEUTROPHILS # (AUTO) 13.6 K/uL (1.8-7.7); NEUTROPHILS % (AUTO) 85.5 % (42.2-75.2); PLATELET COUNT (AUTO) 52 K/uL (140-450); RED BLOOD CELL COUNT(AUTO) 3.64 MIL/uL (4.20-6.10); RED CELL DISTRIBUTION WIDTH 14.9 % (11.6-13.7); WHITE BLOOD COUNT (AUTO) 15.9 K/uL (4.8-10.8)
--- NOTE | 2021-06-10 17:00 | NUR ---
WITH LARGE SOFT BM, ELENO CARE DONE, TURNED AND REPOSITIONED, WOUND CARE DONE
[2021-06-10 17:13] LABS: ANION GAP 12.1 (8-16); CHLORIDE 95 mmol/L (98-107); GLUCOSE 313 mg/dL (74-106); POTASSIUM 4.1 mmol/L (3.5-5.1); SODIUM SERUM 132 mmol/L (136-145)
[2021-06-10 17:21] LABS: CREATININE 4.2 mg/dL (0.6-1.3); UREA NITROGEN, BLOOD 76 mg/dL (7-18)
--- NOTE | 2021-06-10 20:00 | NUR ---
RECEIVED REPORT AT BEDSIDE FROM VEE RN FOR CONTINUITY OF CARE. PT IS LAYING IN BED WITH EYES CLOSED. COPIOUS AMOUNT OF SECRETIONS IN MOUTH, PT SUCTIONED O2 SAT @92%. ETT TO VENT FIO2 @75%, TV @500, RATE @18, PEEP @5. MIDLINE ALREADY IN PLACE, PATENT AND INTACT, INFUSING DOPAMINE @5 MCG. NGT TO R NARE WITH TUBE FEEDING NEPRO RUNNING @ 40ML/HR, H20 FLUSH OF 150 Q6H. SKIN NOT INTACT, SEE WOUND ASSESSMENT. F/C IN PLACE, INTACT, AND DRAINING TO GRAVITY. INITIAL ASSESSMENT COMPLETED. ALL SAFETY MEASURES IN PLACE. BED IN LOWEST POSITION WITH CALL LIGHT WITHIN REACH. WILL CONTINUE TO MONITOR.
--- NOTE | 2021-06-10 21:15 | NUR ---
SCHEDULED MEDICATIONS ADMINISTERED ORDERED. HEPARIN HELD DUE TO LOW PLT COUNT @52. TOLERATED WELL. ALL SAFETY MEASURES IN PLACE. WILL CONTINUE TO MONITOR.
[2021-06-11] VITALS (29 sets, daily range): BP systolic 96–132; BP diastolic 31–66
--- NOTE | 2021-06-11 00:08 | NUR ---
PT OBSERVED. NO SIGNS OD DISTRESS NOTED AT THIS TIME. VSS. WILL CONTINUE TO MONITOR.
[2021-06-11] MEDS: INSULIN LISPRO SLIDING SCALE 100 UNITS/ML VIAL SUBQ PRN ×4 (00:15→18:03)
[2021-06-11] MEDS: DOPamine 400 MG/D5W PREMIX 250 ML IV PRN ×2 (01:20→13:03)
[2021-06-11] MEDS: Z-GUARD PASTE TP SCH ×2 (01:30→13:58)
--- NOTE | 2021-06-11 03:10 | NUR ---
AM CARE AND ORAL CARE VIA VAP KIT PROVIDED. TOLERATED WELL. NO SIGNS OF DISTRESS. VSS. ALL SAFETY MEASURES IN PLACE. WILL CONTINUE TO MONITOR.
[2021-06-11] MEDS ORDERED: PIPERACILLIN/TAZOBACTAM 2.25 GM VIAL IV ONE (04:48)
[2021-06-11] MEDS: PIPERACILLIN/TAZOBACTAM 2.25 GM in DEXTROSE 5% 50 ML IV SCH ×3 (05:00→21:13)
--- NOTE | 2021-06-11 05:31 | NUR ---
SCHEDULED MEDS GIVEN ORDERED. NADR NOTED. NO SIGNS OF DISTRESS. TOLERATED WELL. WILL CONTINUE TO MONITOR.
[2021-06-11] MEDS: BLOOD GLUCOSE MONITORING 1 DEV DEV FS SCH ×4 (06:00→17:59)
[2021-06-11] MEDS: MIDODRINE 5 MG TAB PO SCH ×3 (06:23→19:00)
[2021-06-11 07:14] LABS: BASOPHILS # (AUTO) 0.1 K/uL (0.00-0.22); BASOPHILS % (AUTO) 0.4 % (0.0-2.0); EOSINOPHILS # (AUTO) 0.2 K/uL (0-0.4); EOSINOPHILS % (AUTO) 1.3 % (0.0-4.0); HEMATOCRIT 32.3 % (36-52); HEMOGLOBIN 10.7 g/dL (12.0-18.0); LYMPHOCYTES # (AUTO) 0.8 K/uL (2.0-11.5); LYMPHOCYTES % (AUTO) 5.4 % (20.5-51.1); MEAN CORPUSCULAR HEMOGLOBIN 30 pg (27-31); MEAN CORPUSCULAR HGB CONC 33 g/dL (33-37); MEAN CORPUSCULAR VOLUME 91.8 fL (80-94); MONOCYTES # (AUTO) 1.5 K/uL (0.8-1.0); MONOCYTES % (AUTO) 9.6 % (1.7-9.3); NEUTROPHILS # (AUTO) 13.1 K/uL (1.8-7.7); NEUTROPHILS % (AUTO) 83.3 % (42.2-75.2); PLATELET COUNT (AUTO) 89 K/uL (140-450); RED BLOOD CELL COUNT(AUTO) 3.52 MIL/uL (4.20-6.10); RED CELL DISTRIBUTION WIDTH 14.7 % (11.6-13.7); WHITE BLOOD COUNT (AUTO) 15.7 K/uL (4.8-10.8)
[2021-06-11 07:18] LABS: ANION GAP 15.2 (8-16); CARBON DIOXIDE 26.3 mmol/L (21-32); CHLORIDE 96 mmol/L (98-107); GLUCOSE 273 mg/dL (74-106); POTASSIUM 4.5 mmol/L (3.5-5.1); SODIUM SERUM 133 mmol/L (136-145)
--- NOTE | 2021-06-11 07:23 | NUR ---
GAVE REPORT AT BEDSIDE TO DAYSHIFT RN FOR CONTINUITY OF CARE
--- NOTE | 2021-06-11 07:30 | NUR ---
RECEIVED REPORT FROM TORRES CARRINGTON.
[2021-06-11 07:34] LABS: CREATININE 4.3 mg/dL (0.6-1.3); UREA NITROGEN, BLOOD 81 mg/dL (7-18)
--- NOTE | 2021-06-11 08:00 | NUR ---
PATIENT REPOSITIONED. PUPILS 3MM SLOW TO REACT. WILL NOT OPEN EYES OR FOLLOW ANY COMMANDS. PULLED LEG SLIGHTLY WITH PAINFUL STIMULI. PATIENT IS NOT RECEIVING ANY SEDATION. RIGHT MIDLINE CATHETER IN PLACE WITH DOPAMINE AT 5MCG/KG/MIN, NS AT 10CC/HR. HEART SOUNDS DISTANT. ANTERIOR LATERAL BREATH SOUNDS DIMINISHED SAO2 98%. ETT TO VENT AC PRVC FIO2 .65/VT 500/ RATE 18/PEEP 5. NGT IN PLACE WITH NEPRO AT 40CC/HR. NO RISIDUAL. MENDEZ IN PLACE WITH YELLOW URINE.
[2021-06-11] MEDS: QUEtiapine FUMARATE 25 MG TAB PO SCH ×2 (09:06→21:10)
[2021-06-11] MEDS: SKINTEGRITY HYDROGEL TP SCH (09:08)
--- NOTE | 2021-06-11 10:30 | NUR ---
FIO2 DECREASED TO .50% BY RT. SAO2 97%.
--- NOTE | 2021-06-11 13:00 | NUR ---
DR. HDZ, DR. SOSA AND DR. DUGGAN HERE TO SEE PATIENT. DECREASED DOPAMINE TO 4MCG/KG/MIN. WITH MAP >65.
[2021-06-11] MEDS: NON ADHERENT DRESSING TP SCH (13:58)
[2021-06-11 15:27] LABS: BASOPHILS % (AUTO) 0.3 % (0.0-2.0); EOSINOPHILS # (AUTO) 0.2 K/uL (0-0.4); EOSINOPHILS % (AUTO) 1.9 % (0.0-4.0); HEMATOCRIT 26.8 % (36-52); HEMOGLOBIN 9.1 g/dL (12.0-18.0); LYMPHOCYTES # (AUTO) 0.7 K/uL (2.0-11.5); LYMPHOCYTES % (AUTO) 6.3 % (20.5-51.1); MEAN CORPUSCULAR HEMOGLOBIN 31 pg (27-31); MEAN CORPUSCULAR HGB CONC 34 g/dL (33-37); MEAN CORPUSCULAR VOLUME 91.9 fL (80-94); MONOCYTES # (AUTO) 0.8 K/uL (0.8-1.0); MONOCYTES % (AUTO) 8.1 % (1.7-9.3); NEUTROPHILS # (AUTO) 8.6 K/uL (1.8-7.7); NEUTROPHILS % (AUTO) 83.4 % (42.2-75.2); PLATELET COUNT (AUTO) 93 K/uL (140-450); RED BLOOD CELL COUNT(AUTO) 2.92 MIL/uL (4.20-6.10); RED CELL DISTRIBUTION WIDTH 14.7 % (11.6-13.7); WHITE BLOOD COUNT (AUTO) 10.4 K/uL (4.8-10.8)
--- NOTE | 2021-06-11 17:00 | NUR ---
BP STABLE 126/66 DOPAMINE DECREASED TO 3MCG/KG/MIN. NOW OPENING EYE SPONTANEOUSLY. WILL NOT FOLLOW COMMANDS.
--- NOTE | 2021-06-11 19:22 | NUR ---
REPORT GIVE TO NIGHT RN.
--- NOTE | 2021-06-11 19:30 | NUR ---
RECEIVED REPORT FROM RN DAYSHIFT NURSE AT BEDSIDE FOR CONTINUITY OF CARE, PT LYING IN BED HOB UP 35%HE IS AOX1 EYES CLOSED., NO S/S OF PAIN OR DISTRESS NOTED. HE HAS AN ET TUBE TO VENT WITH SETTINGS FOLLOWS: FI02 IS 40%VT IS 500 PEEP OF 5 AND RR 18. HE HAS A RIGHT SIDED DOUBLE LUMEN MIDLINE RUNNING DOPAMINE AT 3MCG/KG/MIN AND NORMAL SALINE AT 5MLS/HR. PT ALSO HAS A RIGHT SIDED IJ QUINTAN CATHETER DRESSED AND INTACT. PT NOTED WITH NON PITTING EDEMA OF THE BILATERAL HANDS AND FOREARMS. NO EDEMA OF THE RIGHT FOOT AND A BKA ON THE LEFT SIDE. PT HAS A MENDEZ CATHETER DRAINING LIGHT YELLOW URINE. PT HAS NO S/S OF PAIN OR DISTRESS NOTED. ALL ORDERED PRECAUTIONS IN PLACE. .
--- NOTE | 2021-06-11 21:30 | NUR ---
PT GIVEN ORDERED SEROQUEL VIA NG TUBE AND HEPARIN SQ . PT ALSO GIVEN ORDERED ZOSYN IV ABT. MIDODRINE WAS HELD DUE TO INCREASED B/P. EDUCATION PROVIDED ON ORDERED MEDIATION , PT UNABLE TO COMPREHEND.
[2021-06-12] VITALS (28 sets, daily range): BP systolic 96–131; BP diastolic 42–76
--- NOTE | 2021-06-12 | NUR ---
PT FINGERSTICK IS 285 HE WAS GIVEN 6 UNITS HUMALOG PER S/S. FLUIDS CONTINUE ORDERED, HOB UP ORAL CARE PROVIDED. AND ALL ORDERED PRECAUTIONS IN PLACE.
[2021-06-12] MEDS: INSULIN LISPRO SLIDING SCALE 100 UNITS/ML VIAL SUBQ PRN ×4 (00:31→18:45)
[2021-06-12] MEDS: BLOOD GLUCOSE MONITORING 1 DEV DEV FS SCH ×4 (00:37→18:45)
[2021-06-12] MEDS: Z-GUARD PASTE TP SCH ×2 (01:00→12:43)
[2021-06-12] MEDS: DOPamine 400 MG/D5W PREMIX 250 ML IV PRN ×2 (01:41→19:30)
--- NOTE | 2021-06-12 02:00 | NUR ---
DOPAMINE BAG IS COMPLETED , NEW BAG OF DOPAMINE HUNG AND RUNNING ORDERED. HOB UP 35%ORAL CARE PROVIDED AND PT REPOSITIONED IN BED MENDEZ INTACT AND ALL FLUIDS RUNNING ORDERED. PT HAS NO S/S OF PAIN OR DISTRESS NOTED.
--- NOTE | 2021-06-12 03:20 | NUR ---
ORAL CARE DONE WITH VAP KIT.
[2021-06-12 05:35] LABS: BASOPHILS % (AUTO) 0.5 % (0.0-2.0); EOSINOPHILS # (AUTO) 0.2 K/uL (0-0.4); EOSINOPHILS % (AUTO) 2.6 % (0.0-4.0); HEMATOCRIT 28.6 % (36-52); HEMOGLOBIN 9.6 g/dL (12.0-18.0); LYMPHOCYTES # (AUTO) 0.6 K/uL (2.0-11.5); MEAN CORPUSCULAR HEMOGLOBIN 31 pg (27-31); MEAN CORPUSCULAR HGB CONC 33 g/dL (33-37); MEAN CORPUSCULAR VOLUME 92.4 fL (80-94); MONOCYTES % (AUTO) 10.4 % (1.7-9.3); NEUTROPHILS # (AUTO) 7.6 K/uL (1.8-7.7); NEUTROPHILS % (AUTO) 80.5 % (42.2-75.2); PLATELET COUNT (AUTO) 124 K/uL (140-450); RED CELL DISTRIBUTION WIDTH 14.5 % (11.6-13.7); WHITE BLOOD COUNT (AUTO) 9.4 K/uL (4.8-10.8)
[2021-06-12 06:19] LABS: PHOSPHORUS 2.9 mg/dL (2.5-4.9)
--- NOTE | 2021-06-12 06:30 | NUR ---
PT WAS TURNED, CHANGED AND REPOSITIONED IN BED, SKIN CARE PROVIDED.AND ORAL CARE PROVIDED TUBE FEEDING CONTINUES ORDERED. FINGERSTICK IS 299, PT GIVEN 6 UNITS OF HUMALOG COVERAGE PER S/S. FLUIDS RUNNING ORDERED. ZOSYN HUNG ORDERED. ALL ORDERED PRECAUTIONS IN PLACE.
[2021-06-12] MEDS: MIDODRINE 5 MG TAB PO SCH ×3 (06:45→18:45)
[2021-06-12] MEDS: PIPERACILLIN/TAZOBACTAM 2.25 GM in DEXTROSE 5% 50 ML IV SCH ×3 (06:45→21:12)
[2021-06-12 07:21] LABS: ANION GAP 15.8 (8-16); CARBON DIOXIDE 27.8 mmol/L (21-32); CHLORIDE 95 mmol/L (98-107); GLUCOSE 381 mg/dL (74-106); POTASSIUM 4.6 mmol/L (3.5-5.1); SODIUM SERUM 134 mmol/L (136-145)
--- NOTE | 2021-06-12 07:30 | NUR ---
RECEIVED REPORT FROM INTERNAL CONSULTANT NURSE. PT IS RESTING IN BED. EYES CLOSED, RESPONSIVE ONLY TO TACTILE STIMULI, GAG AND CORNEAL REFLEX PRESENT. NO SIGN OF DISTRESS. PT HAS A MIDLINE ON THE RIGHT ARM WITH NS RUNNING AT 10 ML/HR, DOPAMINE AT 3MCG. ETT TO VENT AC PRVC FIO2 40%, TV 500 RATE OF 18 AND PEEP 5. PT IS HAS A NG TUBE ON THE RIGHT NARE WIT TUBE FEEDING RUNNING AT 40 ML/HR, WATER FLUSHES OF 150 ML Q6H. SKIN NOT INTACT, REFER TO WOUND ASSESSMENT. MENDEZ IN PLACE AND INTACT. ALL SAFETY PRECAUTIONS ARE IN PLACE AND WILL CONTINUE TO MONITOR.
--- NOTE | 2021-06-12 07:33 | NUR ---
RECEIVED ON A ModriaAPE R860 VENTILATOR PLUGGED INTO RED OUTLET TOLERATING WELL WITHOUT ADVERSE REACTIONS NOTED TO AN ENDOTRACHEAL TUBE #8.0 SECURED AT 25cm TEETH/GUM LINE WITH AN ANCHOR FAST CUFF PRESSURE CHECKED NOTED AMBU BAG AT BEDSIDE RESTING COMFORTABLY NO DISTRESS NOTED ENDOTRACHEAL TUBE SUCTION FOR MODERATE THICK YELLOW SECRETIONS AIRWAY PATENT
[2021-06-12 07:46] LABS: CREATININE 4.2 mg/dL (0.6-1.3); UREA NITROGEN, BLOOD 90 mg/dL (7-18)
[2021-06-12] MEDS: QUEtiapine FUMARATE 25 MG TAB PO SCH ×2 (08:25→21:12)
[2021-06-12] MEDS: SKINTEGRITY HYDROGEL TP SCH (08:26)
[2021-06-12] MEDS ORDERED: VANCOMYCIN 750 MG in DEXTROSE 5% 250 ML IV SCH (09:00)
--- NOTE | 2021-06-12 09:00 | NUR ---
DUE MEDS GIVEN. ORAL CARE AND MENDEZ CARE DONE
--- NOTE | 2021-06-12 10:30 | NUR ---
seen and examined by DR SOSA, NO NEW ORDERS
[2021-06-12] MEDS: NON ADHERENT DRESSING TP SCH (12:43)
--- NOTE | 2021-06-12 13:00 | NUR ---
WOUND TREATMENT DONE
[2021-06-12 14:59] LABS: BASOPHILS % (AUTO) 0.3 % (0.0-2.0); EOSINOPHILS # (AUTO) 0.2 K/uL (0-0.4); EOSINOPHILS % (AUTO) 2.6 % (0.0-4.0); HEMATOCRIT 30.7 % (36-52); HEMOGLOBIN 10.4 g/dL (12.0-18.0); LYMPHOCYTES # (AUTO) 0.7 K/uL (2.0-11.5); LYMPHOCYTES % (AUTO) 7.2 % (20.5-51.1); MEAN CORPUSCULAR HEMOGLOBIN 31 pg (27-31); MEAN CORPUSCULAR HGB CONC 34 g/dL (33-37); MEAN CORPUSCULAR VOLUME 91.2 fL (80-94); MONOCYTES # (AUTO) 0.9 K/uL (0.8-1.0); MONOCYTES % (AUTO) 9.2 % (1.7-9.3); NEUTROPHILS # (AUTO) 7.7 K/uL (1.8-7.7); NEUTROPHILS % (AUTO) 80.7 % (42.2-75.2); PLATELET COUNT (AUTO) 129 K/uL (140-450); RED BLOOD CELL COUNT(AUTO) 3.37 MIL/uL (4.20-6.10); RED CELL DISTRIBUTION WIDTH 14.6 % (11.6-13.7); WHITE BLOOD COUNT (AUTO) 9.6 K/uL (4.8-10.8)
--- NOTE | 2021-06-12 15:00 | NUR ---
SEEN AND EXAMINE BY DR LAZCANO, ORDERED LASIX 40MG IVP Q8H, FIRST DOSE NOW
[2021-06-12] MEDS ORDERED: FUROSEMIDE 40 MG/4 ML VIAL IVP SCH (15:13)
--- NOTE | 2021-06-12 15:49 | NUR ---
CALLED DR ALCOCER'S OFFICE TO FOLLOW UP ON CONSULT
--- NOTE | 2021-06-12 21:00 | NUR ---
ORAL CARE DONE WITH VAP KIT; REPOSITIONED PATIENT.
[2021-06-12] MEDS: FUROSEMIDE 40 MG/4 ML VIAL IVP SCH (21:12)
--- NOTE | 2021-06-12 23:20 | NUR ---
HEMODIALYSIS DONE AND PER HD NURSE, 2 LITERS WAS REMOVED.
[2021-06-13] VITALS (29 sets, daily range): BP systolic 69–132; BP diastolic 31–94
[2021-06-13] MEDS: BLOOD GLUCOSE MONITORING 1 DEV DEV FS SCH ×4 (00:34→18:32)
[2021-06-13] MEDS: INSULIN LISPRO SLIDING SCALE 100 UNITS/ML VIAL SUBQ PRN ×4 (00:34→18:32)
--- NOTE | 2021-06-13 03:15 | NUR ---
RECEIVED PATIENT ON BED ORALLY INTUBATED AND VENTILATED AT 35% FIO2; OBTUNDED; IV DRIP IN PROGRESS DOPAMINE AT 3 MCG/KG/MIN VIA MIDLINE TO RIGHT UPPER ARM; PATENT AND INTACT. HD ACCESS TO RIGHT INTERNAL JUGULAR, INTACT. CARDIACSCOPE ON SINUS DEAN HR 53/MIN WITH 1STDEGREE AVB AND WITH BBB. ABDOMEN IS SOFT, VERY OBESE, BOWEL SOUNDS HYPOACTIVE. ON CONTINOUS TUBE FEEDING NEPRO 40 M/HR VIA NGT; TOLERATED WITH MINIMAL RESIDUAL. MENDEZ CATH IN PLACE TO GRAVITY DRAINAGE BAG DRAINING TO CLEAR YELLOW URINE OUTPUT; PATENT AND INTACT.
[2021-06-13] MEDS: Z-GUARD PASTE TP SCH ×2 (04:00→13:42)
--- NOTE | 2021-06-13 04:30 | NUR ---
MORNING BED BATH DONE; WOUND CARE DONE.
[2021-06-13] MEDS: FUROSEMIDE 40 MG/4 ML VIAL IVP SCH ×3 (05:24→21:17)
[2021-06-13] MEDS: PIPERACILLIN/TAZOBACTAM 2.25 GM in DEXTROSE 5% 50 ML IV SCH ×3 (05:25→21:00)
[2021-06-13] MEDS: MIDODRINE 5 MG TAB PO SCH ×3 (05:52→18:33)
[2021-06-13 06:23] LABS: BASOPHILS # (AUTO) 0.1 K/uL (0.00-0.22); BASOPHILS % (AUTO) 0.7 % (0.0-2.0); EOSINOPHILS # (AUTO) 0.3 K/uL (0-0.4); EOSINOPHILS % (AUTO) 2.8 % (0.0-4.0); HEMATOCRIT 30.3 % (36-52); HEMOGLOBIN 10.2 g/dL (12.0-18.0); LYMPHOCYTES # (AUTO) 0.9 K/uL (2.0-11.5); MEAN CORPUSCULAR HEMOGLOBIN 31 pg (27-31); MEAN CORPUSCULAR HGB CONC 34 g/dL (33-37); MEAN CORPUSCULAR VOLUME 91.4 fL (80-94); MONOCYTES # (AUTO) 1.3 K/uL (0.8-1.0); MONOCYTES % (AUTO) 13.5 % (1.7-9.3); NEUTROPHILS # (AUTO) 7.4 K/uL (1.8-7.7); PLATELET COUNT (AUTO) 169 K/uL (140-450); RED BLOOD CELL COUNT(AUTO) 3.31 MIL/uL (4.20-6.10); RED CELL DISTRIBUTION WIDTH 14.5 % (11.6-13.7)
[2021-06-13 06:44] LABS: ANION GAP 11.7 (8-16); CHLORIDE 92 mmol/L (98-107); GLUCOSE 295 mg/dL (74-106); POTASSIUM 4.7 mmol/L (3.5-5.1); SODIUM SERUM 129 mmol/L (136-145)
[2021-06-13 06:45] LABS: CREATININE 4.1 mg/dL (0.6-1.3); UREA NITROGEN, BLOOD 97 mg/dL (7-18)
--- NOTE | 2021-06-13 07:05 | NUR ---
RECEIVED ON A [place] R860 VENTILATOR PLUGGED INTO RED OUTLET TOLERATING WELL WITHOUT ADVERSE REACTIONS NOTED TO AN ENDOTRACHEAL TUBE #8.0 SECURED AT 25cm TEETH/GUM LINE WITH AN ANCHOR FAST CUFF PRESSURE CHECKED NOTED AMBU BAG AT BEDSIDE RESTING COMFORTABLY WITHOUT INDICATIONS OF SOB NOTED EQUAL CHEST RISE ENDOTRACHEAL SUCTION FOR MODERATE THIN YELLOW SECRETIONS AIRWAY PATENT
[2021-06-13 07:06] LABS: PHOSPHORUS 3.2 mg/dL (2.5-4.9)
--- NOTE | 2021-06-13 07:20 | NUR ---
ENDORSED CARE TO RADIOPHARMACIST NURSE FOR CONTINUITY OF CARE. Addendum: 06/14/21 at 0713 by Yasir Turner RN RN WRONG TIME
--- NOTE | 2021-06-13 07:20 | NUR ---
RECEIVED REPORT FROM MERCHANDISE FLOW TEAM MEMBER NURSE. PT IS RESTING IN BED AND IN NO SIGN OF DISTRESS. PT HAS A RIGHT IJ FOR HD AND A MIDLINE ON THE RIGHT UPPER ARM WITH NS RUNNING AT 5 ML/HR AND DOPAMINE AT 3 MCG/KG/MIN. PT IS INTUBATED SETTINGS ARE A/C PRVC TV 500, FIO2 32, RATE OF 18 AND PEEP OF 5. PT IS HAS A NG TUBE ON THE RIGHT NARE WIT TUBE FEEDING OF NEPRO RUNNING AT 40 ML/HR, WATER FLUSHES OF 150 ML Q6H. 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 MENDEZ IN PLACE AND INTACT. ALL SAFETY PRECAUTIONS ARE IN PLACE AND WILL CONTINUE TO MONITOR.
--- NOTE | 2021-06-13 08:52 | NUR ---
DR. ALCOCER ON BEDSIDE.
--- NOTE | 2021-06-13 08:56 | NUR ---
DR. ARRIOLA ON BEDSIDE.
--- NOTE | 2021-06-13 09:19 | NUR ---
DR. SOSA ON BEDSIDE.
[2021-06-13] MEDS: QUEtiapine FUMARATE 25 MG TAB PO SCH ×2 (09:24→21:17)
[2021-06-13] MEDS: SKINTEGRITY HYDROGEL TP SCH (09:26)
--- NOTE | 2021-06-13 10:22 | NUR ---
06/13/21 RD FOLLOW UP COMPLETED PLEASE REFER TO NUTRITION ASSESSMENT UNDER CARE ACTIVITY FOR ESTIMATED NUTRITIONAL NEEDS. 1. CONTINUE NEPRO @ 40 ML/HR TOLERATED -FWF: 150 ML Q6H OR PER MD -PROVIDES 1728 KCAL AND 78 GM PROTEIN, MEETING ESTIMATED NUTRITIONAL GOALS 2. MONITOR BLOOD GLUCOSE LEVELS 3. RD TO FOLLOW-UP 2-3 DAYS, HIGH RISK BETTY MCCLURE RD
--- NOTE | 2021-06-13 11:33 | NUR ---
NO EVIDENCE OF PULMONARY DISTRESS NOTED GOOD CHEST RISE AND AERATIO THROUGHOUT BILATERAL LUNG MURILLO AIRWAY PATENT
[2021-06-13] MEDS: NON ADHERENT DRESSING TP SCH (13:42)
[2021-06-13 15:21] LABS: BASOPHILS % (AUTO) 0.6 % (0.0-2.0); EOSINOPHILS # (AUTO) 0.2 K/uL (0-0.4); EOSINOPHILS % (AUTO) 3.5 % (0.0-4.0); HEMATOCRIT 27.8 % (36-52); HEMOGLOBIN 9.4 g/dL (12.0-18.0); LYMPHOCYTES # (AUTO) 0.7 K/uL (2.0-11.5); LYMPHOCYTES % (AUTO) 10.7 % (20.5-51.1); MEAN CORPUSCULAR HEMOGLOBIN 31 pg (27-31); MEAN CORPUSCULAR HGB CONC 34 g/dL (33-37); MEAN CORPUSCULAR VOLUME 90.6 fL (80-94); MONOCYTES # (AUTO) 0.8 K/uL (0.8-1.0); MONOCYTES % (AUTO) 12.1 % (1.7-9.3); NEUTROPHILS # (AUTO) 4.7 K/uL (1.8-7.7); NEUTROPHILS % (AUTO) 73.1 % (42.2-75.2); PLATELET COUNT (AUTO) 164 K/uL (140-450); RED BLOOD CELL COUNT(AUTO) 3.06 MIL/uL (4.20-6.10); RED CELL DISTRIBUTION WIDTH 14.3 % (11.6-13.7); WHITE BLOOD COUNT (AUTO) 6.5 K/uL (4.8-10.8)
[2021-06-13] MEDS: DOPamine 400 MG/D5W PREMIX 250 ML IV PRN ×2 (16:17→23:54)
--- NOTE | 2021-06-13 19:20 | NUR ---
ENDORSED CARE TO HEALTH/SAFETY JOB TITLES NURSE FOR CONTINUITY OF CARE.
--- NOTE | 2021-06-13 19:30 | NUR ---
RECEIVED PATIENT ON BED WITH HOB ELEVATED TO 30 DEGREE; ORALLY INTUBATED AND VENTILATED AT 32% FI02 S02 95 %, CARDIACSCOPE SHOWS ON SINUS DEAN HR 56/MIN. ON DOPAMIN DRIP FOR BP MAINTENANCE. ABDOMEN IS SOFT, ACTIVE BOWEL SOUNDS, ON CONTINOUS TUBE FEEDING NEPRO 40 ML/HR VIA NGT; TOLERATED AND NO RESIDUAL SEEN. WITH MENDEZ IN PLACE; INTACT.
--- NOTE | 2021-06-13 20:15 | NUR ---
FOR HEMODIALYSIS TONIGHT ORDERED AND DUNLAP HD NURSE IS HERE TO DO IT.
--- NOTE | 2021-06-13 21:00 | NUR ---
HEMODIALYSIS IN PROGRESS; DOPAMINE DRIP TITRATED UP PER PROTOCOL BECAUSE BP IS COMING DOWN DURING HD.
[2021-06-14] VITALS (28 sets, daily range): BP systolic 87–147; BP diastolic 25–125
[2021-06-14] MEDS: INSULIN LISPRO SLIDING SCALE 100 UNITS/ML VIAL SUBQ PRN ×4 (00:28→18:39)
[2021-06-14] MEDS: BLOOD GLUCOSE MONITORING 1 DEV DEV FS SCH ×4 (00:31→18:39)
--- NOTE | 2021-06-14 03:30 | NUR ---
MORNING BED BATH DONE; WOUND CARE DONE.
[2021-06-14] MEDS: Z-GUARD PASTE TP SCH ×2 (04:00→13:17)
[2021-06-14] MEDS: FUROSEMIDE 40 MG/4 ML VIAL IVP SCH ×3 (05:30→20:42)
[2021-06-14] MEDS: PIPERACILLIN/TAZOBACTAM 2.25 GM in DEXTROSE 5% 50 ML IV SCH ×3 (05:30→20:43)
[2021-06-14] MEDS: DOPamine 400 MG/D5W PREMIX 250 ML IV PRN (05:33)
[2021-06-14 06:58] LABS: ANION GAP 11.9 (8-16); CARBON DIOXIDE 29.4 mmol/L (21-32); CHLORIDE 97 mmol/L (98-107); CREATININE 2.7 mg/dL (0.6-1.3); GLUCOSE 269 mg/dL (74-106); POTASSIUM 4.3 mmol/L (3.5-5.1); SODIUM SERUM 134 mmol/L (136-145); UREA NITROGEN, BLOOD 53 mg/dL (7-18)
[2021-06-14] MEDS: MIDODRINE 5 MG TAB PO SCH ×3 (07:08→18:40)
--- NOTE | 2021-06-14 07:17 | NUR ---
RECEIVED REPORT FROM WARP SPINNER NURSE. PT IS RESTING IN BED AND IN NO SIGN OF DISTRESS. PT HAS A RIGHT IJ FOR HD AND A MIDLINE ON THE RIGHT UPPER ARM WITH NS RUNNING AT 5 ML/HR AND DOPAMINE AT 2 MCG/KG/MIN. PT IS INTUBATED SETTINGS ARE A/C PRVC TV 500, FIO2 32, RATE OF 18 AND PEEP OF 5. PT IS HAS A NG TUBE ON THE RIGHT NARE WIT TUBE FEEDING OF NEPRO RUNNING AT 40 ML/HR, WATER FLUSHES OF 150 ML Q6H. 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 MENDEZ IN PLACE AND INTACT. ALL SAFETY PRECAUTIONS ARE IN PLACE AND WILL CONTINUE TO MONITOR.
[2021-06-14] MEDS: QUEtiapine FUMARATE 25 MG TAB PO SCH ×2 (08:47→20:42)
[2021-06-14] MEDS: SKINTEGRITY HYDROGEL TP SCH (08:48)
[2021-06-14] MEDS ORDERED: VANCOMYCIN 1,000 MG in DEXTROSE 5% 250 ML IV SCH (09:00)
[2021-06-14 10:42] LABS: BASOPHILS # (AUTO) 0.1 K/uL (0.00-0.22); BASOPHILS % (AUTO) 0.7 % (0.0-2.0); EOSINOPHILS # (AUTO) 0.3 K/uL (0-0.4); EOSINOPHILS % (AUTO) 2.8 % (0.0-4.0); HEMATOCRIT 30.5 % (36-52); HEMOGLOBIN 10.2 g/dL (12.0-18.0); MEAN CORPUSCULAR HEMOGLOBIN 31 pg (27-31); MEAN CORPUSCULAR HGB CONC 33 g/dL (33-37); MEAN CORPUSCULAR VOLUME 92.5 fL (80-94); MONOCYTES # (AUTO) 1.6 K/uL (0.8-1.0); MONOCYTES % (AUTO) 16.7 % (1.7-9.3); NEUTROPHILS # (AUTO) 6.4 K/uL (1.8-7.7); NEUTROPHILS % (AUTO) 68.8 % (42.2-75.2); PLATELET COUNT (AUTO) 218 K/uL (140-450); RED CELL DISTRIBUTION WIDTH 14.5 % (11.6-13.7); WHITE BLOOD COUNT (AUTO) 9.3 K/uL (4.8-10.8)
--- NOTE | 2021-06-14 11:47 | NUR ---
DR. SOSA AT BEDSIDE.
[2021-06-14] MEDS: NON ADHERENT DRESSING TP SCH (13:17)
--- NOTE | 2021-06-14 19:23 | NUR ---
ENDORSED REPORT TO VP CELEBRITY SERVICES NURSE FOR CONTINUITY OF CARE.
[2021-06-14] MEDS: HYDROcodone/APAP 5/325 MG 1 TAB TAB PO PRN (20:52)
[2021-06-15] VITALS (27 sets, daily range): BP systolic 68–158; BP diastolic 38–96
[2021-06-15] MEDS: BLOOD GLUCOSE MONITORING 1 DEV DEV FS SCH ×4 (00:08→18:35)
[2021-06-15] MEDS: INSULIN LISPRO SLIDING SCALE 100 UNITS/ML VIAL SUBQ PRN ×4 (00:12→18:41)
[2021-06-15] MEDS: Z-GUARD PASTE TP SCH ×2 (01:00→14:41)
[2021-06-15] MEDS: HYDROcodone/APAP 5/325 MG 1 TAB TAB PO PRN (01:22)
[2021-06-15] MEDS: FUROSEMIDE 40 MG/4 ML VIAL IVP SCH ×3 (04:26→21:21)
[2021-06-15] MEDS: PIPERACILLIN/TAZOBACTAM 2.25 GM in DEXTROSE 5% 50 ML IV SCH ×2 (04:26→14:38)
[2021-06-15] MEDS: MIDODRINE 5 MG TAB PO SCH ×3 (06:12→19:00)
[2021-06-15 06:39] LABS: BASOPHILS # (AUTO) 0.1 K/uL (0.00-0.22); EOSINOPHILS # (AUTO) 0.4 K/uL (0-0.4); EOSINOPHILS % (AUTO) 4.3 % (0.0-4.0); HEMATOCRIT 29.7 % (36-52); LYMPHOCYTES # (AUTO) 1.4 K/uL (2.0-11.5); LYMPHOCYTES % (AUTO) 14.3 % (20.5-51.1); MEAN CORPUSCULAR HEMOGLOBIN 31 pg (27-31); MEAN CORPUSCULAR HGB CONC 34 g/dL (33-37); MEAN CORPUSCULAR VOLUME 92.4 fL (80-94); MONOCYTES # (AUTO) 1.4 K/uL (0.8-1.0); NEUTROPHILS # (AUTO) 6.5 K/uL (1.8-7.7); NEUTROPHILS % (AUTO) 66.4 % (42.2-75.2); PLATELET COUNT (AUTO) 277 K/uL (140-450); RED BLOOD CELL COUNT(AUTO) 3.21 MIL/uL (4.20-6.10); RED CELL DISTRIBUTION WIDTH 14.1 % (11.6-13.7); WHITE BLOOD COUNT (AUTO) 9.8 K/uL (4.8-10.8)
--- NOTE | 2021-06-15 07:29 | NUR ---
RECEIVED REPORT FROM ZEB BRIGHT. TRANSFER OF CARE AT THIS TIME.
--- NOTE | 2021-06-15 07:58 | NUR ---
FURNITURE SANDER AT PT BEDSIDE.
[2021-06-15 08:22] LABS: ALBUMIN 1.8 g/dL (3.4-5.0); ANION GAP 15.7 (8-16); ASPARTATE AMINOTRANSFERASE 26 U/L (15-37); CARBON DIOXIDE 27.8 mmol/L (21-32); CHLORIDE 92 mmol/L (98-107); CREATININE 3.8 mg/dL (0.6-1.3); GLUCOSE 358 mg/dL (74-106); POTASSIUM 4.5 mmol/L (3.5-5.1); SODIUM SERUM 131 mmol/L (136-145); TOTAL BILIRUBIN 0.6 mg/dL (0.0-1.0)
[2021-06-15 08:54] LABS: UREA NITROGEN, BLOOD 71 mg/dL (7-18)
[2021-06-15] MEDS: QUEtiapine FUMARATE 25 MG TAB PO SCH ×2 (09:43→21:21)
[2021-06-15] MEDS: SKINTEGRITY HYDROGEL TP SCH (09:44)
[2021-06-15] MEDS: NON ADHERENT DRESSING TP SCH (14:41)
--- NOTE | 2021-06-15 18:20 | NUR ---
RN AT PT BEDSIDE FOR DIALYSIS PER DR. LAZCANO.
--- NOTE | 2021-06-15 18:50 | NUR ---
PER DUNLAP, RN GIVE ALBUMIN 25% PT MAP 68.
[2021-06-15] MEDS ORDERED: ALBUMIN HUMAN 25% 100 ML IV ONE ×2 (18:59→19:15)
--- NOTE | 2021-06-15 19:16 | NUR ---
GAVE REPORT TO ZEB MICHELE. TRANSFER OF CARE AT THIS TIME.
[2021-06-15] MEDS: MEROPENEM 1,000 MG in NACL 0.9% 50 ML IV SCH (21:00)
[2021-06-15] MEDS ORDERED: MEROPENEM 1,000 MG VIAL IV ONE (22:53)
[2021-06-16] VITALS (26 sets, daily range): BP systolic 78–151; BP diastolic 33–105
[2021-06-16] MEDS: BLOOD GLUCOSE MONITORING 1 DEV DEV FS SCH ×4 (00:26→18:00)
[2021-06-16] MEDS: INSULIN LISPRO SLIDING SCALE 100 UNITS/ML VIAL SUBQ PRN ×4 (00:27→18:14)
[2021-06-16] MEDS: Z-GUARD PASTE TP SCH ×2 (00:28→12:16)
[2021-06-16] MEDS: FUROSEMIDE 40 MG/4 ML VIAL IVP SCH ×3 (04:22→21:59)
[2021-06-16 05:27] LABS: ANION GAP 14.5 (8-16); CARBON DIOXIDE 28.9 mmol/L (21-32); CHLORIDE 96 mmol/L (98-107); CREATININE 2.5 mg/dL (0.6-1.3); GLUCOSE 231 mg/dL (74-106); POTASSIUM 4.4 mmol/L (3.5-5.1); SODIUM SERUM 135 mmol/L (136-145); UREA NITROGEN, BLOOD 37 mg/dL (7-18)
[2021-06-16 05:28] LABS: BASOPHILS # (AUTO) 0.1 K/uL (0.00-0.22); BASOPHILS % (AUTO) 0.7 % (0.0-2.0); EOSINOPHILS # (AUTO) 0.6 K/uL (0-0.4); EOSINOPHILS % (AUTO) 5.9 % (0.0-4.0); HEMATOCRIT 29.3 % (36-52); HEMOGLOBIN 10.1 g/dL (12.0-18.0); LYMPHOCYTES # (AUTO) 1.2 K/uL (2.0-11.5); LYMPHOCYTES % (AUTO) 11.3 % (20.5-51.1); MEAN CORPUSCULAR HEMOGLOBIN 31 pg (27-31); MEAN CORPUSCULAR HGB CONC 35 g/dL (33-37); MONOCYTES # (AUTO) 0.9 K/uL (0.8-1.0); MONOCYTES % (AUTO) 9.1 % (1.7-9.3); NEUTROPHILS # (AUTO) 7.6 K/uL (1.8-7.7); PLATELET COUNT (AUTO) 329 K/uL (140-450); RED BLOOD CELL COUNT(AUTO) 3.21 MIL/uL (4.20-6.10); WHITE BLOOD COUNT (AUTO) 10.4 K/uL (4.8-10.8)
[2021-06-16 05:38] LABS: MAGNESIUM 1.9 mg/dL (1.8-2.4); PHOSPHORUS 3.4 mg/dL (2.5-4.9)
[2021-06-16] MEDS: MIDODRINE 5 MG TAB PO SCH ×3 (06:02→18:15)
--- NOTE | 2021-06-16 07:30 | NUR ---
REPORT RECEIVED FROM PM SHIFT RN FOR CONTINUITY OF CARE. ETT TO VENT. ACPRVC MODE. FIO2 35%, TV 500, RATE 18, PEEP 5. RASS 0, OPENS EYES, RESPONDS TO NAME. IV SITE RT IJ DIALYSIS CATHETER, INTACT, SALINE LOCKED AND JORDON MIDLINE INFUSING DOPAMINE 2 MCG/KG/MIN, AND NS 5ML/HR. RT NARE NGT TO FEEDING. 0 RESIDUALS. SB ON MONITOR. MENDEZ CATHETER IN PLACE. SKIN NON INTACT, WARM AND DRY, SEE WOUND ASSESSMENT. HOB 30 DEGREES, SAFETY PRECAUTIONS IN PLACE. BED LOCKED IN LOWEST POSITION. WILL CONTINUE TO MONITOR.
--- NOTE | 2021-06-16 08:00 | NUR ---
ORAL CARE PROVIDED, PT REPOSITIONED.
[2021-06-16] MEDS: QUEtiapine FUMARATE 25 MG TAB PO SCH ×2 (08:24→21:59)
[2021-06-16] MEDS: SKINTEGRITY HYDROGEL TP SCH (08:24)
--- NOTE | 2021-06-16 10:58 | NUR ---
06/16/21 RD FOLLOW UP COMPLETED PLEASE REFER TO NUTRITION ASSESSMENT UNDER CARE ACTIVITY FOR ESTIMATED NUTRITIONAL NEEDS. 1. CONTINUE NEPRO @ 40 ML/HR TOLERATED -FWF: 150 ML Q6H OR PER MD -PROVIDES 1728 KCAL AND 78 GM PROTEIN, MEETING ESTIMATED NUTRITIONAL GOALS 2. MONITOR BLOOD GLUCOSE LEVELS 3. RD TO FOLLOW-UP 3-5 DAYS, MODERATE RISK (DOWNGRADED D/T PT TOLERATING TF WITHOUT RESIDUALS) BETTY MCCLURE, RD
--- NOTE | 2021-06-16 11:50 | NUR ---
WOUND CARE RE-EVALUATION NOTE: PT HAS NO NEW SKIN BREAKS AND NO IMPROVEMENT FROM LAST SKIN ASSESSMENT NEITHER. WILL CONTINUE SAME INTERVENTIONS AT THIS TIME. WOUND CARE RE-EVALUATION NOTE: SKIN ASSESSMENT DONE. PT. IS INTUBATED AND SEDATED. SKIN CONDITION NOT HEALING DUE TO PT. MEDICAL CONDITION IS DETERIORATING. NOTICE PT. WITH LARGE AMOUNT OF BLACK LIQUIDS FOUL SMELL STOOL, PRIMARY RN NOTIFIED. INTEGUMENTARY: -LEFT LOWER ABDOMINAL FOLD MULTIPLE PIN POINTS BLISTERING SKIN RESOLVED -INTERTRIGO LOWER ABDOMINAL FOLDS, AND GROINS MULTIPLE EROSIONS HEALING, NO NEW BREAKS,AREA PINK AND MOIST -SEVERE MOISTURE ASSOCIATED DERMATITIS TO SCROTAL AND ELENO-RECTAL, MULTIPLE EROSIONS -RIGHT BUTTOCK PRESSURE INJURY STAGE 3 8X5X0.2CM WOUND BED 100% GRANULATION TISSUE, MOIST, NO ODOR, ELENO WOUND SKIN NON-BLANCHABLE REDNESS WITH THIN EASILY TO TORN SKIN -LEFT BUTTOCK PRESSURE INJURY STAGE 3 7X2X0.2CM WOUND BED 100% GRANULATION TISSUE, MOIST, NO ODOR, ELENO WOUND SKIN NON-BLANCHABLE REDNESS WITH THIN EASILY TO TORN SKIN - SACRALCOCCYX PRESSURE INJURY STAGE 3 5 X 3 X 0.2 CM. WOUND BED PINK, MOIST, 90% GRANULATING, 10% YELLOW SLOUGH, MINIMAL SEROUS DRAINAGE, NO ODOR. ELENO-WOUND MOIST, PINK AND DENUDED SKIN - RIGHT ISCHIUM PRESSURE INJURY UN-STAGEABLE WITH 8X4XCM. WOUND BED 20% GRANULATING, 80% YELLOW SLOUGH, MINIMAL SANGUINOUS DRAINAGE, NO ODOR. ELENO-WOUND SKIN MOIST AND RED - LEFT ISCHIUM PRESSURE INJURY STAGE 3 WITH 3X5CM. WOUND BED PINK, MOIST, 100% GRANULATING, MINIMAL SANGUINOUS DRAINAGE, NO ODOR. ELENO-WOUND HEALED SCAR -LEFT LOWER LEG PARTIAL THICKNESS SKIN LOSS 9X3X0.1CM, WOUND BED PINK AND DRY, NO ODOR, ELENO WOUND SKIN HEALING TISSUE, NO ODOR
--- NOTE | 2021-06-16 12:13 | NUR ---
HUNG NEW BAG OF FEEDING, ORAL CARE PROVIDED.
[2021-06-16] MEDS: NON ADHERENT DRESSING TP SCH (12:16)
[2021-06-16] MEDS: DOPamine 400 MG/D5W PREMIX 250 ML IV PRN (13:22)
--- NOTE | 2021-06-16 15:36 | NUR ---
PT HAD 1 BM, PT CLEANED, REPOSITIONED.
--- NOTE | 2021-06-16 17:00 | NUR ---
RECEIVED CALL FROM PT'S SON MARIAN UPDATED ON PT STATUS. ALL QUESTIONS AND CONCERNS ANSWERED AT THIS TIME.
--- NOTE | 2021-06-16 19:10 | NUR ---
REPORT GIVEN TO PM SHIFT RN FOR CONTINUITY OF CARE
--- NOTE | 2021-06-16 19:29 | NUR ---
REPORT RECEIVED FROM MORRO BAXTER, FOR CONTINUITY OF CARE.
--- NOTE | 2021-06-16 19:40 | NUR ---
FOUND INTUBATED PT ON SIMV MODE WITH PS OF 12 WITH NO NOTES, ABG OR ORDER. SWITCHED PT BACK ON PRVC MODE WHICH PT WAS PREVIOUSLY ON. WILL CONTINUE TO MONITOR PT.
[2021-06-16] MEDS: ONDANSETRON 4 MG/2 ML VIAL IVP PRN (21:30)
--- NOTE | 2021-06-16 22:01 | NUR ---
PATIENT VOMITED. PRN ZOFRAN GIVEN. DRESSING SITE CHANGED AND DAILY CARE PERFORMED. PATIENT IN NO DISTRESS AT THIS TIME.
[2021-06-16] MEDS: MEROPENEM 1,000 MG in NACL 0.9% 50 ML IV SCH (22:09)
[2021-06-17] VITALS (31 sets, daily range): BP systolic 67–193; BP diastolic 21–147
[2021-06-17] MEDS: INSULIN LISPRO SLIDING SCALE 100 UNITS/ML VIAL SUBQ PRN ×2 (00:04→18:33)
[2021-06-17] MEDS: BLOOD GLUCOSE MONITORING 1 DEV DEV FS SCH ×4 (00:05→18:29)
--- NOTE | 2021-06-17 00:05 | NUR ---
BLOOD GLUCOSE 333. 8 UNITS OF HUMALOG GIVEN.
[2021-06-17] MEDS: Z-GUARD PASTE TP SCH ×2 (01:00→12:44)
[2021-06-17] MEDS: DOPamine 400 MG/D5W PREMIX 250 ML IV PRN ×3 (03:51→15:07)
[2021-06-17] MEDS: FUROSEMIDE 40 MG/4 ML VIAL IVP SCH ×3 (05:41→21:31)
[2021-06-17] MEDS: MIDODRINE 5 MG TAB PO SCH ×3 (07:01→18:34)
--- NOTE | 2021-06-17 07:20 | NUR ---
RECEIVED REPORT FROM LEAD DATA ENTRY OPERATOR NURSE. PT IS RESTING IN BED AND IN NO SIGN OF DISTRESS. PT HAS A RIGHT IJ FOR HD AND A MIDLINE ON THE RIGHT UPPER ARM WITH NS RUNNING AT 5 ML/HR AND DOPAMINE AT 13 MCG/KG/MIN. PT IS INTUBATED SETTINGS ARE A/C PRVC TV 500, FIO2 35, RATE OF 18 AND PEEP OF 5. PT IS HAS A NG TUBE ON THE RIGHT NARE WIT TUBE FEEDING OF NEPRO RUNNING AT 40 ML/HR, WATER FLUSHES OF 150 ML Q6H. 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 MENDEZ IN PLACE AND INTACT. ALL SAFETY PRECAUTIONS ARE IN PLACE AND WILL CONTINUE TO MONITOR.
[2021-06-17 07:31] LABS: MAGNESIUM 1.4 mg/dL (1.8-2.4); PHOSPHORUS 2.7 mg/dL (2.5-4.9)
--- NOTE | 2021-06-17 08:02 | NUR ---
RECEIVED ON A Tier 1 [employer] R860 VENTILATOR PLUGGED INTO RED OUTLET TOLERATING WELL WITHOUT ADVERSE REACTIONS NOTED TO AN ENDOTRACHEAL TUBE #8.0 SECURED AT 25cm TEETH/GUM LINE WITH AN ANCHOR FAST CUFF PRESSURE CHECKED NOTED AMBU BAG AT BEDSIDE NO DISTRESS NOTED EQUAL CHEST RISE AIRWAY PATENT
[2021-06-17] MEDS: QUEtiapine FUMARATE 25 MG TAB PO SCH ×2 (08:52→21:31)
[2021-06-17] MEDS: SKINTEGRITY HYDROGEL TP SCH (08:53)
--- NOTE | 2021-06-17 09:20 | NUR ---
METROLOGY TECHNICIAN CALLED TO BEDSIDE HEMODIALYSIS IN PROGRESS SATURATION DECLINING TO 78% ON FIO2 OF 35% INCREASED FIO2 TO 70% METROLOGY TECHNICIAN TO MONITOR AND TITRATED FIO2 NEEDED
--- NOTE | 2021-06-17 09:30 | NUR ---
PT IS HAVING HEMODIALYSIS PERFORMED. PT IS TOLERATING WELL.
[2021-06-17 09:55] LABS: BASOPHILS # (AUTO) 0.1 K/uL (0.00-0.22); BASOPHILS % (AUTO) 1.5 % (0.0-2.0); EOSINOPHILS # (AUTO) 0.2 K/uL (0-0.4); EOSINOPHILS % (AUTO) 1.9 % (0.0-4.0); HEMOGLOBIN 10.3 g/dL (12.0-18.0); LYMPHOCYTES # (AUTO) 0.7 K/uL (2.0-11.5); LYMPHOCYTES % (AUTO) 7.2 % (20.5-51.1); MEAN CORPUSCULAR HEMOGLOBIN 31 pg (27-31); MEAN CORPUSCULAR HGB CONC 35 g/dL (33-37); MEAN CORPUSCULAR VOLUME 90.5 fL (80-94); MONOCYTES # (AUTO) 0.8 K/uL (0.8-1.0); NEUTROPHILS # (AUTO) 7.8 K/uL (1.8-7.7); NEUTROPHILS % (AUTO) 81.4 % (42.2-75.2); PLATELET COUNT (AUTO) 384 K/uL (140-450); RED BLOOD CELL COUNT(AUTO) 3.32 MIL/uL (4.20-6.10); RED CELL DISTRIBUTION WIDTH 13.9 % (11.6-13.7); WHITE BLOOD COUNT (AUTO) 9.6 K/uL (4.8-10.8)
--- NOTE | 2021-06-17 10:00 | NUR ---
DR. APONTE AT BEDSIDE.
--- NOTE | 2021-06-17 10:04 | NUR ---
DR. MCCLURE ON BEDSIDE. PER DR. MCCLURE ORDERS, PT WILL BE PLACED ON CPAP TRIALS STARTING TODAY.
[2021-06-17 10:50] LABS: ALBUMIN 2.2 g/dL (3.4-5.0); ANION GAP 13.1 (8-16); ASPARTATE AMINOTRANSFERASE 24 U/L (15-37); CHLORIDE 96 mmol/L (98-107); CREATININE 2.8 mg/dL (0.6-1.3); GLUCOSE 287 mg/dL (74-106); POTASSIUM 4.1 mmol/L (3.5-5.1); SODIUM SERUM 133 mmol/L (136-145); TOTAL BILIRUBIN 0.6 mg/dL (0.0-1.0); UREA NITROGEN, BLOOD 45 mg/dL (7-18)
--- NOTE | 2021-06-17 11:58 | NUR ---
HEMODIALYSIS IN PROGRESS EQUAL CHEST RISE ENDOTRACHEAL SUCTION FOR MODERATE THIN YELLOW SECRETIONS AIRWAY PATENT SATURATION 100% ON FIO2 OF 70% PEEP 5cmH2O TITRATED FIO2 TO 40% IRRIGATION WORKER TO MONITOR NORA/RN NOTIFIED
[2021-06-17] MEDS: NON ADHERENT DRESSING TP SCH (12:44)
--- NOTE | 2021-06-17 14:23 | NUR ---
STABLE NO DISTRESS NOTED GOOD CHEST RISE ENDOTRACHEAL SUCTION FOR MODERATE THIN HAZY YELLOW SECRETIONS AIRWAY PATENT SATURATION 99% on fio2 of 40% PEEP 5cmH2O TITRATED FIO2 TO 35% NORA/RN NOTIFIED
--- NOTE | 2021-06-17 17:34 | NUR ---
PATIENT UNABLE TO TOLERATE CPAP TRIALS EVEN WITH INCREASED PRESSURE SUPPORT [id number] NO VIABLE SPONTANEOUS Vt AIRWAY PATENT
--- NOTE | 2021-06-17 19:20 | NUR ---
ENDORSED CARE TO [place] MIXER OPERATOR NURSE FOR CONTINUITY OF CARE.
--- NOTE | 2021-06-17 19:30 | NUR ---
RECEIVED PATIENT ON BED WITH HOB TO 30 DEGREE; ORALLY INTUBATED AND VENTILATED AT 35% FIO2. PATIENT IS NON VERBAL, EYES TRACKS BUT DOESN'T FOLLOW ANY COMMANDS. COMMENCING ON IV DOPAMINE DRIP FOR BP MAINTENANCE VIA MIDLINE TO RIGHT UPPER ARM; PATENT AND INTACT. ABDOMEN IS SOMEWHAT FIRM, VERY OBESE, HYPOACTIVE BOWEL SOUNDS. TUBE FEEDING DUE TO LARGE AMOUNT OF RESIDUALS AND VOMITTING ENDORSED BY THE PREVIOUS SHIFT RN. WITH MENDEZ CATH IN SITU TO BEDSIDE URINE BAG DRAINING TO DARK HEBERT URINE OUTPUT.
[2021-06-17] MEDS ORDERED: MAG SULF 2000 MG/WATER PREMIX 50 ML IV ONE (20:05)
--- NOTE | 2021-06-17 21:00 | NUR ---
REPOSITIONED PATIENT; NGT RE CHECKED, STILL WITH LARGE AMOUNT OF RESIDUALS AROUND 200 ML, SO CONTINUED HOLDING THE TUBE FEEDING.
[2021-06-17] MEDS: MEROPENEM 1,000 MG in NACL 0.9% 50 ML IV SCH (22:00)
[2021-06-18] VITALS (27 sets, daily range): BP systolic 78–192; BP diastolic 22–136
[2021-06-18] MEDS: DOPamine 400 MG/D5W PREMIX 250 ML IV PRN ×2 (00:02→14:17)
--- NOTE | 2021-06-18 00:30 | NUR ---
NGT CHECKED AGAIN, NOTED WITH ONLY AROUND 50 ML OF RESIDUALS SO TUBE FEEDING CONTINUED PREVIOUSLY ORDERED.
[2021-06-18] MEDS: INSULIN LISPRO SLIDING SCALE 100 UNITS/ML VIAL SUBQ PRN ×4 (01:05→18:27)
[2021-06-18] MEDS: Z-GUARD PASTE TP SCH ×2 (04:30→12:42)
--- NOTE | 2021-06-18 04:30 | NUR ---
MORNING BED BATH DONE, WOUND DRESSING CHANGED ON SACRAL WOUND. KEPT CLEAN, DRY AND COMFORTABLE.
[2021-06-18] MEDS: FUROSEMIDE 40 MG/4 ML VIAL IVP SCH ×3 (06:00→21:00)
--- NOTE | 2021-06-18 06:30 | NUR ---
WITH LARGE AMOUNT OF RESIDUALS AGAIN NOTED FROM THE NGT; TUBE FEEDING WITHOLD AGAIN.
[2021-06-18] MEDS: MIDODRINE 5 MG TAB PO SCH ×3 (06:56→18:24)
[2021-06-18] MEDS: BLOOD GLUCOSE MONITORING 1 DEV DEV FS SCH ×4 (06:56→18:24)
[2021-06-18 07:11] LABS: ANION GAP 14.8 (8-16); ASPARTATE AMINOTRANSFERASE 23 U/L (15-37); CARBON DIOXIDE 25.6 mmol/L (21-32); CHLORIDE 97 mmol/L (98-107); CREATININE 2.7 mg/dL (0.6-1.3); GLUCOSE 272 mg/dL (74-106); POTASSIUM 4.4 mmol/L (3.5-5.1); SODIUM SERUM 133 mmol/L (136-145); TOTAL BILIRUBIN 0.4 mg/dL (0.0-1.0); UREA NITROGEN, BLOOD 37 mg/dL (7-18)
--- NOTE | 2021-06-18 07:25 | NUR ---
RECEIVED REPORT FROM MAINSPRING FORMER NURSE. PT IS RESTING IN BED AND IN NO SIGN OF DISTRESS. PT HAS A RIGHT IJ FOR HD AND A MIDLINE ON THE RIGHT UPPER ARM WITH NS RUNNING AT 5 ML/HR AND DOPAMINE AT 8 MCG/KG/MIN. PT IS INTUBATED SETTINGS ARE A/C PRVC TV 500, FIO2 35, RATE OF 18 AND PEEP OF 5. PT HAS A NG TUBE ON THE RIGHT NARE WITH TUBE FEEDING OF NEPRO BUT IS ON HOLD DUE TO LARGE RESIDUALS. 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 MENDEZ IN PLACE AND INTACT. ALL SAFETY PRECAUTIONS ARE IN PLACE AND WILL CONTINUE TO MONITOR.
[2021-06-18] MEDS: SKINTEGRITY HYDROGEL TP SCH (09:00)
[2021-06-18] MEDS: QUEtiapine FUMARATE 25 MG TAB PO SCH ×2 (09:30→21:00)
--- NOTE | 2021-06-18 09:50 | NUR ---
DR. MCCLURE AT BEDSIDE.
--- NOTE | 2021-06-18 10:05 | NUR ---
DR. APONTE AT BEDSIDE.
[2021-06-18 10:26] LABS: BASOPHILS # (AUTO) 0.1 K/uL (0.00-0.22); EOSINOPHILS # (AUTO) 0.3 K/uL (0-0.4); EOSINOPHILS % (AUTO) 3.2 % (0.0-4.0); HEMATOCRIT 27.1 % (36-52); HEMOGLOBIN 9.1 g/dL (12.0-18.0); LYMPHOCYTES # (AUTO) 0.9 K/uL (2.0-11.5); LYMPHOCYTES % (AUTO) 9.9 % (20.5-51.1); MEAN CORPUSCULAR HEMOGLOBIN 31 pg (27-31); MEAN CORPUSCULAR HGB CONC 34 g/dL (33-37); MEAN CORPUSCULAR VOLUME 91.1 fL (80-94); MONOCYTES % (AUTO) 11.3 % (1.7-9.3); NEUTROPHILS # (AUTO) 6.6 K/uL (1.8-7.7); NEUTROPHILS % (AUTO) 74.6 % (42.2-75.2); PLATELET COUNT (AUTO) 363 K/uL (140-450); RED BLOOD CELL COUNT(AUTO) 2.97 MIL/uL (4.20-6.10); RED CELL DISTRIBUTION WIDTH 13.8 % (11.6-13.7); WHITE BLOOD COUNT (AUTO) 8.8 K/uL (4.8-10.8)
[2021-06-18 10:46] LABS: PROTHROMBIN TIME 9.9 secs (10.8-13.4)
[2021-06-18] MEDS: NON ADHERENT DRESSING TP SCH (12:42)
--- NOTE | 2021-06-18 17:00 | NUR ---
CALLED DR. MCCLURE VIA PHONE ABOUT PT BLEEDING THROUGH HIS NOSTRILS. WAITING FOR CALL BACK.
--- NOTE | 2021-06-18 17:30 | NUR ---
SPOKE TO DR. RIOS VIA PHONE AND INFORMED HIM OF PT BLEEDING THROUGH HIS NOSTRILS AND MOUTH. PER DR. RIOS ORDERS, HEPARIN HAS BEEN STOPPED.
--- NOTE | 2021-06-18 19:20 | NUR ---
ENDORSED CARE TO OPERATIONS RESEARCH DIRECTOR NURSE FOR CONTINUITY OF CARE.
--- NOTE | 2021-06-18 19:25 | NUR ---
RECEIVED PATIENT ON BED AWAKE, ABLE TO FOLLOW SIMPLE COMMANDS; ORALLY INTUBATED AND VENTILATED AT 35% FIO2; ON IV DOPAMINE DRIP FOR BP MAINTENANCE. ABDOMEN IS SOMEWHAT FIRM; TUBE FEEDING STILL ON HOLD DUE TO LARGE AMOUNT OF RESIDUALS AND VOMITING ENDORSED BY THE PREVIOUS SHIFT RN. MENDEZ CATH IN SITU TO BEDSIDE BAG; INTACT, DRAINING TO DARK HEBERT URINE OUTPUT.
--- NOTE | 2021-06-18 21:00 | NUR ---
TUBE FEEDING CONTINUED ON WITHOLDING DUE TO LARGE AMOUNT OF RESIDUALS. NO VOMITING NOR BLEEDING SEEN.
[2021-06-18] MEDS: MEROPENEM 1,000 MG in NACL 0.9% 50 ML IV SCH (21:30)
[2021-06-19] VITALS (27 sets, daily range): BP systolic 57–185; BP diastolic 32–94
[2021-06-19] MEDS: BLOOD GLUCOSE MONITORING 1 DEV DEV FS SCH ×4 (00:59→18:41)
[2021-06-19] MEDS: INSULIN LISPRO SLIDING SCALE 100 UNITS/ML VIAL SUBQ PRN ×3 (01:00→12:28)
[2021-06-19] MEDS: Z-GUARD PASTE TP SCH ×2 (03:30→13:44)
--- NOTE | 2021-06-19 04:00 | NUR ---
MORNING BED BATH DONE. WOUND CARE DONE.TUBE FEEDING RESUMED
[2021-06-19] MEDS: FUROSEMIDE 40 MG/4 ML VIAL IVP SCH ×3 (05:00→21:15)
[2021-06-19] MEDS: MIDODRINE 5 MG TAB PO SCH ×3 (06:35→18:38)
[2021-06-19 07:11] LABS: ANION GAP 14.6 (8-16); ASPARTATE AMINOTRANSFERASE 18 U/L (15-37); CARBON DIOXIDE 25.3 mmol/L (21-32); CHLORIDE 97 mmol/L (98-107); CREATININE 3.6 mg/dL (0.6-1.3); GLUCOSE 143 mg/dL (74-106); POTASSIUM 3.9 mmol/L (3.5-5.1); SODIUM SERUM 133 mmol/L (136-145); TOTAL BILIRUBIN 0.4 mg/dL (0.0-1.0); UREA NITROGEN, BLOOD 46 mg/dL (7-18)
[2021-06-19 07:26] LABS: BASOPHILS # (AUTO) 0.1 K/uL (0.00-0.22); BASOPHILS % (AUTO) 0.8 % (0.0-2.0); EOSINOPHILS # (AUTO) 0.4 K/uL (0-0.4); EOSINOPHILS % (AUTO) 3.6 % (0.0-4.0); HEMATOCRIT 27.7 % (36-52); HEMOGLOBIN 9.4 g/dL (12.0-18.0); LYMPHOCYTES # (AUTO) 1.1 K/uL (2.0-11.5); LYMPHOCYTES % (AUTO) 10.8 % (20.5-51.1); MEAN CORPUSCULAR HEMOGLOBIN 31 pg (27-31); MEAN CORPUSCULAR HGB CONC 34 g/dL (33-37); MEAN CORPUSCULAR VOLUME 91.9 fL (80-94); MONOCYTES # (AUTO) 1.1 K/uL (0.8-1.0); MONOCYTES % (AUTO) 11.3 % (1.7-9.3); NEUTROPHILS # (AUTO) 7.4 K/uL (1.8-7.7); NEUTROPHILS % (AUTO) 73.5 % (42.2-75.2); PLATELET COUNT (AUTO) 443 K/uL (140-450); RED BLOOD CELL COUNT(AUTO) 3.02 MIL/uL (4.20-6.10); RED CELL DISTRIBUTION WIDTH 13.9 % (11.6-13.7)
--- NOTE | 2021-06-19 07:28 | NUR ---
RECEIVED REPORT FROM PATIENT REGISTRATION MANAGER NURSE. PT IS RESTING IN BED AND IN NO SIGN OF DISTRESS. PT HAS A RIGHT IJ FOR HD AND A MIDLINE ON THE RIGHT UPPER ARM WITH NS RUNNING AT 5 ML/HR AND DOPAMINE AT 8 MCG/KG/MIN. PT IS INTUBATED SETTINGS ARE A/C PRVC TV 500, FIO2 35, RATE OF 18 AND PEEP OF 5. PT HAS A NG TUBE ON THE RIGHT NARE WITH TUBE FEEDING OF NEPRO AT 40 ML/HR WITH H20 FLUSHES OF 150 ML Q6H. 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 MENDEZ IN PLACE AND INTACT. ALL SAFETY PRECAUTIONS ARE IN PLACE AND WILL CONTINUE TO MONITOR.
[2021-06-19] MEDS: QUEtiapine FUMARATE 25 MG TAB PO SCH ×2 (09:28→21:15)
[2021-06-19] MEDS: SKINTEGRITY HYDROGEL TP SCH (09:28)
--- NOTE | 2021-06-19 09:55 | NUR ---
PT IS GETTING HD AT THIS MOMENT.
[2021-06-19] MEDS: DOPamine 400 MG/D5W PREMIX 250 ML IV PRN ×2 (10:03→19:07)
--- NOTE | 2021-06-19 10:20 | NUR ---
DR. MCCLURE AT BEDSIDE.
[2021-06-19] MEDS ORDERED: ALBUMIN HUMAN 25% 100 ML IV ONE (10:54)
[2021-06-19] MEDS ORDERED: ALBUMIN HUMAN 25% 100 ML IV SCH (10:55)
--- NOTE | 2021-06-19 13:21 | NUR ---
HD WAS COMPLETED. ONLY 300 ML WERE COLLECTED DUE TO PT BP BEING UNSTABLE.
[2021-06-19] MEDS: NON ADHERENT DRESSING TP SCH (13:44)
--- NOTE | 2021-06-19 19:25 | NUR ---
ENDORSED CARE TO WELDING SPECIALIST NURSE FOR CONTINUITY OF CARE.
--- NOTE | 2021-06-19 19:30 | NUR ---
RECEIVED PATIENT ON BED ORALLY INTUBATED AND VENTILATED AT 30% FIO2. OPEN EYES SPONTANEOUSLY, ABLE TO FOLLOW SIMPLE COMMANDS. CARDIACSCOPE SHOWS ON SINUS RHYTHM, HR 76/MIN NO ARRHYTHMIAS SEEN. COMMENCING ON IV DOPAMINE FOR BP MAINTENANCE. ABDOMEN SOFT, OBESE, HYPOACTIVE BOWEL SOUNDS. ON CONTINOUS TUBE FEEDING NEPRO AT 40L/HR VIA NGT; TOLERATED WITH MINIMAL RESIDUALS. WITH MENDEZ CATH IN PLACE DRAINING TO DARK HEBERT URINE OUTPUT; PATENT AND INTACT.
--- NOTE | 2021-06-19 20:30 | NUR ---
ORAL CARE DONE WITH VAP KIT; REPOSITIONED PATIENT.
[2021-06-19] MEDS: MEROPENEM 1,000 MG in NACL 0.9% 50 ML IV SCH (21:49)
[2021-06-20] VITALS (25 sets, daily range): BP systolic 73–154; BP diastolic 40–107
[2021-06-20] MEDS: INSULIN LISPRO SLIDING SCALE 100 UNITS/ML VIAL SUBQ PRN ×4 (00:42→18:29)
[2021-06-20] MEDS: BLOOD GLUCOSE MONITORING 1 DEV DEV FS SCH ×4 (00:43→18:27)
[2021-06-20] MEDS: Z-GUARD PASTE TP SCH ×2 (01:00→13:00)
[2021-06-20] MEDS: DOPamine 400 MG/D5W PREMIX 250 ML IV PRN (03:46)
--- NOTE | 2021-06-20 04:00 | NUR ---
NOTED WITH SLIGHT HEMATURIA; WILL CONTINUE TO ASSESS AND MONITOR.
--- NOTE | 2021-06-20 04:15 | NUR ---
MORNING BED BATH DONE; KEPT CLEAN DRY AND COMFORTABLE.
[2021-06-20] MEDS: FUROSEMIDE 40 MG/4 ML VIAL IVP SCH ×3 (05:42→21:00)
[2021-06-20] MEDS: MIDODRINE 5 MG TAB PO SCH ×3 (06:01→19:42)
[2021-06-20 06:33] LABS: BASOPHILS # (AUTO) 0.1 K/uL (0.00-0.22); BASOPHILS % (AUTO) 1.1 % (0.0-2.0); EOSINOPHILS # (AUTO) 0.4 K/uL (0-0.4); EOSINOPHILS % (AUTO) 4.3 % (0.0-4.0); HEMATOCRIT 28.4 % (36-52); HEMOGLOBIN 9.6 g/dL (12.0-18.0); LYMPHOCYTES % (AUTO) 9.7 % (20.5-51.1); MEAN CORPUSCULAR HEMOGLOBIN 31 pg (27-31); MEAN CORPUSCULAR HGB CONC 34 g/dL (33-37); MEAN CORPUSCULAR VOLUME 91.7 fL (80-94); MONOCYTES # (AUTO) 1.1 K/uL (0.8-1.0); MONOCYTES % (AUTO) 11.2 % (1.7-9.3); NEUTROPHILS # (AUTO) 7.4 K/uL (1.8-7.7); NEUTROPHILS % (AUTO) 73.7 % (42.2-75.2); PLATELET COUNT (AUTO) 474 K/uL (140-450); RED CELL DISTRIBUTION WIDTH 13.9 % (11.6-13.7); WHITE BLOOD COUNT (AUTO) 10.1 K/uL (4.8-10.8)
[2021-06-20 07:01] LABS: ALBUMIN 2.5 g/dL (3.4-5.0); ANION GAP 14.3 (8-16); ASPARTATE AMINOTRANSFERASE 22 U/L (15-37); CARBON DIOXIDE 26.5 mmol/L (21-32); CHLORIDE 98 mmol/L (98-107); CREATININE 2.5 mg/dL (0.6-1.3); GLUCOSE 159 mg/dL (74-106); POTASSIUM 3.8 mmol/L (3.5-5.1); SODIUM SERUM 135 mmol/L (136-145); TOTAL BILIRUBIN 0.4 mg/dL (0.0-1.0); UREA NITROGEN, BLOOD 27 mg/dL (7-18)
--- NOTE | 2021-06-20 07:30 | NUR ---
REPORT RECEIVED FROM TORRES RN.
--- NOTE | 2021-06-20 08:00 | NUR ---
PATIENT AWAKE. INCONSISTENTLY FOLLOWS COMMANDS. MOVES ARMS AND RIGHT FOOT. HEART TONES REGULAR. SR. ANTERIOR/LATERAL BREATH SOUNDS WITH CRACKLES BILATERALLY. SAO2 90'S. ETT TO VENT AC/PRVC FIO2 .30/VT 500/RATE 18/PEEP 5. HYPOACTIVE BOWEL SOUNDS. SOFT ABDOMEN. NGT WITH NEPRO AT 40CC/HR. NO RISIDUAL. JORDON MIDLINE CATHETER. DOPAMINE AT 6MCG DECREASED TO 4 MCG, NS AT 2ML/HR. CELESTINO CATHETER IN PLACE AND CAPPED. MENDEZ CATHETER WITH HEMATURIA NOTED.
[2021-06-20] MEDS: SKINTEGRITY HYDROGEL TP SCH (09:52)
[2021-06-20] MEDS: QUEtiapine FUMARATE 25 MG TAB PO SCH ×2 (09:52→21:00)
--- NOTE | 2021-06-20 12:37 | NUR ---
06/20/21 RD FOLLOW UP COMPLETED PLEASE REFER TO NUTRITION ASSESSMENT UNDER CARE ACTIVITY FOR ESTIMATED NUTRITIONAL NEEDS. 1. CONTINUE NEPRO @ 40 ML/HR TOLERATED -FWF: 150 ML Q6H OR PER MD -PROVIDES 1728 KCAL AND 78 GM PROTEIN, MEETING ESTIMATED NUTRITIONAL GOALS 2. RECOMMEND GABRIEL BID PER PROTOCOL 3. MONITOR BLOOD GLUCOSE LEVELS 4. RD TO FOLLOW-UP 3-5 DAYS, MODERATE RISK BETTY MCCLURE RD
[2021-06-20] MEDS: NON ADHERENT DRESSING TP SCH (13:00)
--- NOTE | 2021-06-20 13:32 | NUR ---
PT PLACED ON SBT CPAP 5 PS 10 AND FIO2 30%. PT IS AWAKE. ALARMS SET. NURSE MADE AWARE. WILL CONTINUE TO MONITOR.
--- NOTE | 2021-06-20 14:00 | NUR ---
BP 132/107 DOPAMINE DECREASED TO 3MCG.
--- NOTE | 2021-06-20 14:47 | NUR ---
PS TITRATED TO 8 cmH2O. WILL CONTINUE TO MONITOR.
--- NOTE | 2021-06-20 16:19 | NUR ---
PT REMAINS ON SBT AT THIS TIME TOLERATING WELL. WILL CONTINUE TO MONITOR.
--- NOTE | 2021-06-20 19:20 | NUR ---
RECEIVED REPORT AT BEDSIDE FROM VEE CARRINGTON AUGUST FOR CONTINUITY OF CARE. PT LAYING IN BED ETT TO VENT FIO2 @30% VT @500, RATE @18, AND PEEP @5, O2 SAT @93%. LUNGS SOUNDS WITH CRACKLES THROUGHOUT. OPENS EYES TO NAME OR VOICE, EYES PERRL. ABLE TO FOLLOW SIMPLE COMMANDS. SINUS RHYTHM ON THE MONITOR. RIJ CELESTINO CATH IN PLACE WITH DRESSING DRY AND INTACT. JORDON MIDLINE DOUBLE LUMEN IN PLACE, PATENT AND INTACT, INFUSING DOPAMINE @3MCG/KG/MIN AND NS @10ML/HR. ON CONTINUOS TUBE FEEDING NEPRO AT 40L/HR WITH 150ML WATER FLUSH Q6H VIA NGT TO RT NARES, TOLERATING WELL WITH [address]IDUAL[address] F/C IN PLACE DRAINING TO GRAVITY. SKIN NOT INTACT, SEE WOUND ASSESSMENT. INITIAL ASSESSMENT COMPLETED. SAFETY MEASURES IN PLACE. BED IN LOWEST POSITION WITH CALL LIGHT WITHIN REACH. WILL CONTINUE TO MONITOR.
--- NOTE | 2021-06-20 19:31 | NUR ---
REPORT GIVEN TO CANDY COOKER HELPER RN.
--- NOTE | 2021-06-20 20:50 | NUR ---
CALLED TO ROOM BY RN, PT HAD EXTUBATED HIMSELF, I PLACED THE PT ON A 15L NON-REBREATHER, NO STRIDOR NOTED, PT IS SATURATING 100%, WILL CONTINUE TO MONITOR
--- NOTE | 2021-06-20 21:00 | NUR ---
PT O2 SAT OBSERVED IN THE HIGH 80s. PT WAS CHECKED AND FOUND WITH ETT TUBE OUT OF PLACEMENT. RT RAIMUNDO AND TITUS ARRIVED ON UNIT AT TIME OF OBSERVATION AND WAS NOTIFIED. ETT TUBE WAS REMOVED BY RTs AND PT PLACED ON NON-REBREATHER MASK @15L AND PLACE IN HIGH FOWLERS POSITION. WAS PAGED AND WAITING FOR CALL BACK.
--- NOTE | 2021-06-20 21:21 | NUR ---
RECEIVED CALL BACK FROM WEBLOGIC DEVELOPER MD KIM. WAS NOTIFIED AND WAS GIVEN ORDERS FOR ABG @2200 AND TO CALL FOR RESULTS AND A CXR TO BE DONE IN THE MORNING.
[2021-06-20] MEDS: MEROPENEM 1,000 MG in NACL 0.9% 50 ML IV SCH (21:47)
--- NOTE | 2021-06-20 23:15 | NUR ---
PT OBSERVED. NO SIGNS OF DISTRESS. VSS. CHEST RISE AND FALL PRESENT. O2 SATURATION OBSERVED @98% ON 15L VIA NON-REBREATHER. WILL CONTINUE TO MONITOR.
[2021-06-21] VITALS (24 sets, daily range): BP systolic 72–179; BP diastolic 21–94
[2021-06-21] MEDS: BLOOD GLUCOSE MONITORING 1 DEV DEV FS SCH ×4 (00:34→18:32)
[2021-06-21] MEDS: INSULIN LISPRO SLIDING SCALE 100 UNITS/ML VIAL SUBQ PRN ×3 (00:38→18:36)
[2021-06-21] MEDS: Z-GUARD PASTE TP SCH ×2 (01:00→13:53)
[2021-06-21] MEDS: FUROSEMIDE 40 MG/4 ML VIAL IVP SCH ×3 (04:55→21:12)
[2021-06-21] MEDS: MIDODRINE 5 MG TAB PO SCH ×3 (06:55→18:38)
[2021-06-21 06:56] LABS: ALBUMIN 2.4 g/dL (3.4-5.0); ANION GAP 14.3 (8-16); ASPARTATE AMINOTRANSFERASE 17 U/L (15-37); CARBON DIOXIDE 27.2 mmol/L (21-32); CHLORIDE 97 mmol/L (98-107); CREATININE 2.9 mg/dL (0.6-1.3); GLUCOSE 138 mg/dL (74-106); POTASSIUM 3.5 mmol/L (3.5-5.1); SODIUM SERUM 135 mmol/L (136-145); TOTAL BILIRUBIN 0.4 mg/dL (0.0-1.0); UREA NITROGEN, BLOOD 37 mg/dL (7-18)
--- NOTE | 2021-06-21 07:15 | NUR ---
REPORT RECEIVED FROM TORRES RN
--- NOTE | 2021-06-21 07:24 | NUR ---
REPORT GIVEN TO DAYSHIFT RN FOR CONTINUITY OF CARE.
--- NOTE | 2021-06-21 08:00 | NUR ---
PATIENT AROUSES TO VOICE. REORIENTED TO PLACE/DATE/TIME. FOLLOWED SIMPLE COMMANDS. ANTERIOR/LATERAL BREATH SOUNDS DIMINISHED O2 ON NRB MASK. SAO2 100%. NGT IN PLACE. NEPRO AT 40CC/HR. NO RISIDUAL. MENDEZ IN PLACE WITH OLD BLOOD AND SEDIMENT. RIGHT MIDLINE CATHETER. NS AT 10ML/HR. DOPAMINE AT 2MCG/KG/MIN TURNED OFF.
[2021-06-21] MEDS: QUEtiapine FUMARATE 25 MG TAB PO SCH ×2 (09:42→21:12)
[2021-06-21] MEDS: SKINTEGRITY HYDROGEL TP SCH (09:43)
[2021-06-21] MEDS ORDERED: ATROPINE 0.4 MG/ML VIAL IVP PRN (10:50)
--- NOTE | 2021-06-21 13:30 | NUR ---
DR. ROMO HERE TO SEE PATIENT. NO NEW ORDERS.
[2021-06-21] MEDS: NON ADHERENT DRESSING TP SCH (13:53)
--- NOTE | 2021-06-21 16:30 | NUR ---
CALL CENTER SUPPORT REPRESENTATIVE HERE AND DIALYSIS STARTED. PATIENT STABLE.
[2021-06-21] MEDS ORDERED: ALBUMIN HUMAN 25% 100 ML IV ONE (16:48)
[2021-06-21] MEDS ORDERED: ALBUMIN HUMAN 25% 100 ML IV SCH (17:00)
[2021-06-21] MEDS ORDERED: DOPamine 400 MG/D5W PREMIX 250 ML IV ONE (17:44)
--- NOTE | 2021-06-21 19:00 | NUR ---
PATIENT RECEIVING DIALYSIS AND SBP DROP TO 60-70'S 1740. DIALYSIS STOPPED. DOPAMINE RESTARTED AT 12MCG/KG/MIN. BP AND HR RESPONSIVE. 146/69. DOPAMINE TITRATED DOWN TO 5MCG/KG/MIN. BP CURRENTLY 151/81. DOPAMINE DOWN TO 4 MCG/KG/MIN.
--- NOTE | 2021-06-21 19:30 | NUR ---
RECEIVED PATIENT ON BED; AWAKE, OPEN EYES SPONTANEOUSLY, FOLLOWS SIMPLE COMMANDS; VENTILATING ON 4 LITERS 02/NC. STILL ON DOPAMINE DRIP FOR BP MAINTENANCE VIA MIDLINE TO RIGHT UPPER ARM; INTACT. ABDOMEN IS SOFT AND OBESE; ACTIVE BOWEL SOUNDS. NGT IN PLACE AND RECEIVING CONTINOUS TUBE FEEDING NEPRO AT 40 ML/HR; TOLERATED. WITH MENDEZ CATH TO GRAVITY DRAINAGE BAG; DRAINING TO CLOUDY URINE OUTPUT.
--- NOTE | 2021-06-21 19:30 | NUR ---
REPORT GIVEN TO ZEB PEPPER.
[2021-06-21 20:28] LABS: BASOPHILS # (AUTO) 0.1 K/uL (0.00-0.22); BASOPHILS % (AUTO) 1.2 % (0.0-2.0); EOSINOPHILS # (AUTO) 0.4 K/uL (0-0.4); HEMATOCRIT 26.9 % (36-52); LYMPHOCYTES # (AUTO) 1.2 K/uL (2.0-11.5); LYMPHOCYTES % (AUTO) 13.4 % (20.5-51.1); MEAN CORPUSCULAR HEMOGLOBIN 31 pg (27-31); MEAN CORPUSCULAR HGB CONC 33 g/dL (33-37); MEAN CORPUSCULAR VOLUME 94.1 fL (80-94); MONOCYTES % (AUTO) 10.4 % (1.7-9.3); NEUTROPHILS # (AUTO) 6.6 K/uL (1.8-7.7); PLATELET COUNT (AUTO) 432 K/uL (140-450); RED BLOOD CELL COUNT(AUTO) 2.86 MIL/uL (4.20-6.10); RED CELL DISTRIBUTION WIDTH 14.3 % (11.6-13.7); WHITE BLOOD COUNT (AUTO) 9.3 K/uL (4.8-10.8)
--- NOTE | 2021-06-21 20:30 | NUR ---
TURNED AND REPOSITIONED PATIENT; NOTED WITH SLIGHT SOB ON EXERTION.
[2021-06-21] MEDS: MEROPENEM 1,000 MG in NACL 0.9% 50 ML IV SCH (22:45)
[2021-06-22] VITALS (25 sets, daily range): BP systolic 81–160; BP diastolic 37–116
[2021-06-22] MEDS: INSULIN LISPRO SLIDING SCALE 100 UNITS/ML VIAL SUBQ PRN ×5 (00:30→23:42)
[2021-06-22] MEDS: BLOOD GLUCOSE MONITORING 1 DEV DEV FS SCH ×5 (00:45→23:41)
[2021-06-22] MEDS: Z-GUARD PASTE TP SCH ×2 (04:30→12:50)
[2021-06-22] MEDS: FUROSEMIDE 40 MG/4 ML VIAL IVP SCH ×3 (05:00→21:00)
--- NOTE | 2021-06-22 05:00 | NUR ---
MORNING BED BATH DONE; KEPT CLEAN, DRY AND COMFORTABLE.
[2021-06-22] MEDS ORDERED: DOPamine 400 MG/D5W PREMIX 250 ML IV ONE (06:20)
[2021-06-22 06:56] LABS: ALBUMIN 2.7 g/dL (3.4-5.0); ANION GAP 10.2 (8-16); ASPARTATE AMINOTRANSFERASE 22 U/L (15-37); CARBON DIOXIDE 28.6 mmol/L (21-32); CHLORIDE 98 mmol/L (98-107); CREATININE 2.4 mg/dL (0.6-1.3); GLUCOSE 168 mg/dL (74-106); POTASSIUM 4.8 mmol/L (3.5-5.1); SODIUM SERUM 132 mmol/L (136-145); TOTAL BILIRUBIN 0.3 mg/dL (0.0-1.0); UREA NITROGEN, BLOOD 30 mg/dL (7-18)
[2021-06-22] MEDS: MIDODRINE 5 MG TAB PO SCH ×3 (06:56→18:35)
[2021-06-22 07:20] LABS: BASOPHILS # (AUTO) 0.1 K/uL (0.00-0.22); EOSINOPHILS # (AUTO) 0.5 K/uL (0-0.4); EOSINOPHILS % (AUTO) 4.8 % (0.0-4.0); HEMATOCRIT 29.4 % (36-52); HEMOGLOBIN 9.9 g/dL (12.0-18.0); LYMPHOCYTES # (AUTO) 1.1 K/uL (2.0-11.5); LYMPHOCYTES % (AUTO) 11.6 % (20.5-51.1); MEAN CORPUSCULAR HEMOGLOBIN 31 pg (27-31); MEAN CORPUSCULAR HGB CONC 34 g/dL (33-37); MEAN CORPUSCULAR VOLUME 92.7 fL (80-94); MONOCYTES # (AUTO) 1.1 K/uL (0.8-1.0); MONOCYTES % (AUTO) 11.7 % (1.7-9.3); NEUTROPHILS # (AUTO) 6.9 K/uL (1.8-7.7); NEUTROPHILS % (AUTO) 70.9 % (42.2-75.2); PLATELET COUNT (AUTO) 391 K/uL (140-450); RED BLOOD CELL COUNT(AUTO) 3.17 MIL/uL (4.20-6.10); RED CELL DISTRIBUTION WIDTH 13.8 % (11.6-13.7); WHITE BLOOD COUNT (AUTO) 9.8 K/uL (4.8-10.8)
--- NOTE | 2021-06-22 07:20 | NUR ---
RECEIVED REPORT FROM ECCLESIASTICAL WORKER NURSE. PT IS RESTING IN BED AND IN NO SIGN OF DISTRESS. PT HAS A RIGHT IJ FOR HD AND A MIDLINE ON THE RIGHT UPPER ARM WITH NS RUNNING AT 5 ML/HR AND DOPAMINE AT 5 MCG/KG/MIN. PT HAS A NC RUNNING 4 L/MIN. PT HAS A NG TUBE ON THE RIGHT NARE WITH TUBE FEEDING OF NEPRO AT 40 ML/HR WITH H20 FLUSHES OF 150 ML Q6H. 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 MENDEZ IN PLACE AND INTACT. ALL SAFETY PRECAUTIONS ARE IN PLACE AND WILL CONTINUE TO MONITOR.
[2021-06-22] MEDS: QUEtiapine FUMARATE 25 MG TAB PO SCH ×2 (08:38→21:00)
[2021-06-22] MEDS: SKINTEGRITY HYDROGEL TP SCH (09:00)
--- NOTE | 2021-06-22 10:55 | NUR ---
PER DR. MCCLURE ORDERS, PT WAS ORDERED A AB LAB.
--- NOTE | 2021-06-22 12:03 | NUR ---
ABG LAB VALUES WERE REPORTED TO DR. MCCLURE. PER DR. MCCLURE ORDERS, PT WAS PLACED ON BIPAP.
[2021-06-22] MEDS: NON ADHERENT DRESSING TP SCH (12:50)
--- NOTE | 2021-06-22 16:25 | NUR ---
DR. ARRIOLA AT BEDSIDE.
[2021-06-22] MEDS: DOPamine 400 MG/D5W PREMIX 250 ML IV PRN (18:36)
--- NOTE | 2021-06-22 19:35 | NUR ---
ENDORSED CARE TO [employer] NURSE FOR CONTINUITY OF CARE.
--- NOTE | 2021-06-22 19:40 | NUR ---
REPORT RECEIVED FROM AM NURSE FOR CONTINUITY OF CARE. PATIENT RESTING IN BED UNDER NO DISTRESS.
[2021-06-22] MEDS: MEROPENEM 1,000 MG in NACL 0.9% 50 ML IV SCH (21:00)
--- NOTE | 2021-06-22 23:25 | NUR ---
[facility], DR. MCCLURE CALLED BACK, ASKED FOR INITIAL ABG FOR PT ON BIPAP. ABG RESULTS REPORTED TO DR. MCCLURE. ORDERED TO TITRATE FIO2 TO KEEP SPO2 GREATER THAN 92%.
--- NOTE | 2021-06-22 23:53 | NUR ---
TITRATE FIO2 FROM 35% TO 30% AFTER ABG RESULTS. PT TOLERATING WELL AT THIS MOMENT.
[2021-06-23] VITALS (23 sets, daily range): BP systolic 67–158; BP diastolic 20–109
--- NOTE | 2021-06-23 | NUR ---
PATIENT BLOOD GLUCOSE 168. 2 UNITS OF HUMALOG GIVEN PER PROTOCOL
[2021-06-23] MEDS: Z-GUARD PASTE TP SCH ×2 (00:12→13:12)
[2021-06-23] MEDS: BLOOD GLUCOSE MONITORING 1 DEV DEV FS SCH ×4 (05:51→23:31)
[2021-06-23] MEDS: FUROSEMIDE 40 MG/4 ML VIAL IVP SCH ×3 (05:51→20:26)
[2021-06-23] MEDS: INSULIN LISPRO SLIDING SCALE 100 UNITS/ML VIAL SUBQ PRN ×3 (05:51→19:33)
--- NOTE | 2021-06-23 05:55 | NUR ---
PATIENT BLOOD GLUCOSE 197. 2 UNITS OF HUMALOG GIVEN
--- NOTE | 2021-06-23 05:58 | NUR ---
MIDLINE CATHETER DRESSING ASSESSED AND CHANGED.
[2021-06-23 06:21] LABS: BASOPHILS # (AUTO) 0.2 K/uL (0.00-0.22); BASOPHILS % (AUTO) 2.2 % (0.0-2.0); EOSINOPHILS # (AUTO) 0.6 K/uL (0-0.4); EOSINOPHILS % (AUTO) 6.8 % (0.0-4.0); HEMATOCRIT 28.4 % (36-52); HEMOGLOBIN 9.8 g/dL (12.0-18.0); LYMPHOCYTES # (AUTO) 0.7 K/uL (2.0-11.5); LYMPHOCYTES % (AUTO) 7.9 % (20.5-51.1); MEAN CORPUSCULAR HEMOGLOBIN 32 pg (27-31); MEAN CORPUSCULAR HGB CONC 35 g/dL (33-37); MEAN CORPUSCULAR VOLUME 91.9 fL (80-94); MONOCYTES # (AUTO) 1.2 K/uL (0.8-1.0); MONOCYTES % (AUTO) 12.6 % (1.7-9.3); NEUTROPHILS # (AUTO) 6.7 K/uL (1.8-7.7); NEUTROPHILS % (AUTO) 70.5 % (42.2-75.2); PLATELET COUNT (AUTO) 395 K/uL (140-450); RED BLOOD CELL COUNT(AUTO) 3.09 MIL/uL (4.20-6.10); WHITE BLOOD COUNT (AUTO) 9.4 K/uL (4.8-10.8)
[2021-06-23 06:22] LABS: ALBUMIN 2.5 g/dL (3.4-5.0); ANION GAP 11.1 (8-16); ASPARTATE AMINOTRANSFERASE 20 U/L (15-37); CHLORIDE 95 mmol/L (98-107); CREATININE 2.5 mg/dL (0.6-1.3); GLUCOSE 174 mg/dL (74-106); POTASSIUM 4.1 mmol/L (3.5-5.1); SODIUM SERUM 130 mmol/L (136-145); TOTAL BILIRUBIN 0.3 mg/dL (0.0-1.0); UREA NITROGEN, BLOOD 38 mg/dL (7-18)
[2021-06-23] MEDS: MIDODRINE 5 MG TAB PO SCH ×2 (06:28→13:00)
--- NOTE | 2021-06-23 07:30 | NUR ---
REPORT RECEIVED FROM [employer] RN.
--- NOTE | 2021-06-23 08:30 | NUR ---
PATIENT AROUSES TO VERBAL STIMULI. FOLLOWS COMMANDS. ORIENTED TO PERSON. REORIENTED TO PLACE AND TIME. ANTERIOR/LATERAL BREATH SOUNDS DIMINISHED ON LEFT. RHONCHI IN UPPER RIGHT. BIPAP AT 24%. SAO2 91%. NGT IN PLACE WITH NEPRO AT 40CC/HR. NO RISIDUAL. ACTIVE BOWEL SOUNDS. ABDOMEN SOFT. MENDEZ IN PLACE WITH YELLOW URINE SEDIMENT PRESENT. JORDON MIDLINE CATHETER. DOPAMINE AT 4MCG/KG/MIN, NS AT 5ML/HR.
--- NOTE | 2021-06-23 09:00 | NUR ---
SWITCHED TO 4L/NC. SAO2 94%
[2021-06-23] MEDS: SKINTEGRITY HYDROGEL TP SCH (10:00)
--- NOTE | 2021-06-23 10:00 | NUR ---
PATIENT PULLED OUT NGT. REORIENTED TO PLACE. SOFT WRIST RESTRAINT PLACED TO REMIND TO NOT PULL AT LINES.
[2021-06-23] MEDS: QUEtiapine FUMARATE 25 MG TAB PO SCH ×2 (10:07→20:26)
--- NOTE | 2021-06-23 11:51 | NUR ---
DR. MCCLURE HERE. UPDATED THE PATIENT PULLED NGT. RECEIVED ORDER FOR SWALLOW STUDY. IF DOES NOT PASS REPLACE NG. ORDER TO KEEP SAO2 88-95%
--- NOTE | 2021-06-23 13:04 | NUR ---
WOUND CARE RE-EVALUATION NOTE: NO NEW SKIN ALTERATIONS, WOUNDS SHOWS EVIDENCE OF HEALING, PT. PULLED OUT NGT, PENDING ST EVALUATION. INTEGUMENTARY: -INTERTRIGO LOWER ABDOMINAL FOLDS, AND GROINS MULTIPLE EROSIONS CONTINUE TO IMPROVE -SEVERE MOISTURE ASSOCIATED DERMATITIS TO SCROTAL AND ELENO-RECTAL, MULTIPLE EROSIONS IMPROVING -RIGHT BUTTOCK PRESSURE INJURY STAGE 3 8X5CM SUPERFICIAL DEPTH WOUND BED 100% GRANULATION TISSUE, MOIST, NO ODOR, ELENO WOUND SKIN NON-BLANCHABLE REDNESS WITH THIN EASILY TO TORN SKIN -LEFT BUTTOCK PRESSURE INJURY STAGE 3 7X2 SUPERFICIAL DEPTH WOUND BED 100% GRANULATION TISSUE, MOIST, NO ODOR, ELENO WOUND SKIN NON-BLANCHABLE REDNESS WITH THIN EASILY TO TORN SKIN - SACRALCOCCYX PRESSURE INJURY STAGE 3 5 X 3 X 0.2 CM. WOUND BED PINK, MOIST, 100% GRANULATING, MINIMAL SEROUS DRAINAGE, NO ODOR. ELENO-WOUND MOIST, PINK AND DENUDED SKIN - RIGHT ISCHIUM PRESSURE INJURY UN-STAGEABLE WITH 8X4XCM. WOUND BED 100% GRANULATING,MOIST NO ODOR. ELENO-WOUND SKIN MOIST AND RED - LEFT ISCHIUM PRESSURE INJURY STAGE 3 WITH 3X5CM. WOUND BED PINK, MOIST, 100% GRANULATING, MOIST, NO ODOR. ELENO-WOUND HEALED SCAR -LEFT LOWER LEG PARTIAL THICKNESS SKIN LOSS 9X3 SUPERFICIAL DEPTH WOUND BED PINK AND MOIST, NO ODOR, ELENO WOUND SKIN HEALING TISSUE, NO ODOR
[2021-06-23] MEDS: NON ADHERENT DRESSING TP SCH (13:12)
--- NOTE | 2021-06-23 16:45 | NUR ---
DIALYSIS STARTED. BP DROPPING 81/40.TITRATED DOPAMINE UP TO 9MCG/KG/MIN.
[2021-06-23] MEDS: ONDANSETRON 4 MG/2 ML VIAL IVP PRN (16:59)
--- NOTE | 2021-06-23 17:30 | NUR ---
PATIENTS BP STABLE ON 9MCG/KG/MIN. INCREASED IN COUGHING RESULTING IN EMESIS. ZOFRAN GIVEN.
--- NOTE | 2021-06-23 19:00 | NUR ---
DIALYSIS COMPLETE. TITRATED DOPAMINE BACK TO 4MCG/KG/MIN. COMPLETED PATIENT BATH AND LINEN CHANGE.
--- NOTE | 2021-06-23 19:20 | NUR ---
REPORT GIVEN TO AGILE TEST LEAD RNALEJANDRO. PATIENT STABLE.
--- NOTE | 2021-06-23 19:33 | NUR ---
REPORT RECEIVED FROM ONUR P. CHARGE NURSE RN, FOR CONTINUITY OF CARE.
--- NOTE | 2021-06-23 20:00 | NUR ---
PATIENT A/O X1. ORIENTED TO NAME AND REORIENTATED TO PLACE, TIME AND SITUATION. PATIENT IS ABLE TO ANSWER SIMPLE YES/NO QUESTIONS AND FOLLOW SIMPLE COMMANDS, BUT IS OCCASIONALLY CONFUSED. SPEECH IS GARBLED. PATIENT ON 4L NC O2 98% WITH A PERSISTENT COUGH AND RECEIVING DOPAMINE DRIP 9 MCG/KG/MIN FOR BLOOD PRESSURE MAINTENANCE. RESTRAINTS CHECKED AND PATIENT EDUCATE ON RESTRAINT NECESSITY AND APPEARS TO UNDERSTAND. PATIENT IS NOT IN ANY PAIN OR DISTRESS AT THIS TIME.
[2021-06-23] MEDS: DOPamine 400 MG/D5W PREMIX 250 ML IV PRN (20:26)
--- NOTE | 2021-06-23 20:26 | NUR ---
ATTEMPTED TO PROVIDE PATIENT WITH PM DOES OF SEROQUEL, PATIENT REFUSED. REFUSAL DOCUMENTED IN EMAR
[2021-06-24] VITALS (23 sets, daily range): BP systolic 98–149; BP diastolic 36–93
--- NOTE | 2021-06-24 | NUR ---
PATIENT BLOOD GLUCOSE 128. NO COVERAGE NEEDED.
[2021-06-24] MEDS: Z-GUARD PASTE TP SCH ×2 (01:40→13:30)
[2021-06-24] MEDS: FUROSEMIDE 40 MG/4 ML VIAL IVP SCH (05:12)
[2021-06-24] MEDS: MIDODRINE 5 MG TAB PO SCH ×3 (06:10→19:33)
[2021-06-24] MEDS: BLOOD GLUCOSE MONITORING 1 DEV DEV FS SCH ×3 (06:10→18:00)
--- NOTE | 2021-06-24 06:11 | NUR ---
PATIENT BLOOD GLUCOSE 186. 2 UNITS OF HUMALOG GIVEN
[2021-06-24] MEDS: INSULIN LISPRO SLIDING SCALE 100 UNITS/ML VIAL SUBQ PRN ×3 (06:28→19:27)
--- NOTE | 2021-06-24 07:15 | NUR ---
Received report from Rebeca CARRINGTON and assumed care of patient.
[2021-06-24 07:29] LABS: HEMATOCRIT 27.6 % (36-52); HEMOGLOBIN 9.2 g/dL (12.0-18.0); MEAN CORPUSCULAR HEMOGLOBIN 31 pg (27-31); MEAN CORPUSCULAR HGB CONC 33 g/dL (33-37); MEAN CORPUSCULAR VOLUME 92.3 fL (80-94); PLATELET COUNT (AUTO) 270 K/uL (140-450); RED BLOOD CELL COUNT(AUTO) 2.99 MIL/uL (4.20-6.10); RED CELL DISTRIBUTION WIDTH 13.9 % (11.6-13.7); WHITE BLOOD COUNT (AUTO) 16.3 K/uL (4.8-10.8)
--- NOTE | 2021-06-24 07:31 | NUR ---
FOUND PT OFF BI-PAP. FOUND PT ON 4L NASAL CANNULA. PT WAS STATING 95% PT IS SHALLOW BREATHING AND ASKED PT IF HE WANTED TO BE PLACED BACK ON BI-PAP AND PT DECLINED. PT DENIED ANY RESPIRATORY DISTRESS Addendum: 06/24/21 at 0825 by Shameka Khalil RT RN NOTIFIED
[2021-06-24 07:53] LABS: ALBUMIN 2.6 g/dL (3.4-5.0); ANION GAP 13.4 (8-16); ASPARTATE AMINOTRANSFERASE 24 U/L (15-37); CARBON DIOXIDE 26.6 mmol/L (21-32); CHLORIDE 96 mmol/L (98-107); CREATININE 2.4 mg/dL (0.6-1.3); GLUCOSE 208 mg/dL (74-106); SODIUM SERUM 132 mmol/L (136-145); TOTAL BILIRUBIN 0.3 mg/dL (0.0-1.0); UREA NITROGEN, BLOOD 28 mg/dL (7-18)
[2021-06-24 08:19] LABS: EOSINOPHILS % (MANUAL) 1 % (0-4); LYMPHOCYTES % (MANUAL) 3 % (20-46); MONOCYTES % (MANUAL) 6 % (5-12)
[2021-06-24] MEDS: QUEtiapine FUMARATE 25 MG TAB PO SCH ×2 (09:15→21:00)
--- NOTE | 2021-06-24 10:15 | NUR ---
Nephwilbert GREEN stopped by to see the patient. Nephwilbert GREEN stated he will be ordering some continuous IV fluids.
--- NOTE | 2021-06-24 11:11 | NUR ---
PT WITH SPO2 OF 85% ON 4L NC SLEEPING. PLACED PT BACK ON BIPAP NASAL MASK SIZE MEDIUM. SPO2 RETURNED TO 94% ADEQUATE VOLUMES AND Ve. WILL CONTINUE TO MONITOR.
--- NOTE | 2021-06-24 11:25 | NUR ---
Rolled Ham Lacer stopped by. No new orders received.
[2021-06-24] MEDS: DEXT 5% / NACL 0.9% 500 ML IV SCH ×2 (12:20→21:38)
[2021-06-24] MEDS: NON ADHERENT DRESSING TP SCH (13:30)
[2021-06-24] MEDS: SKINTEGRITY HYDROGEL TP SCH (13:30)
--- NOTE | 2021-06-24 19:23 | NUR ---
Fer CARRINGTON was made aware that Dr. Metcalf was paged regarding the elevated WBC. IV abx dc'd yesterday. Fer CARRINGTON will follow up with Dr. Metcalf, as he has not called back.
--- NOTE | 2021-06-24 19:38 | NUR ---
REPORT RECEIVED FROM VEE RN FOR CONTINUITY CARE. PT ON BI-PAP. LAYING IN BAD WITH VSS. CHEST RISE AND FALL NOTED. JORDON MIDLINE PATENT AND INTACT INFUSING DOPAMINE @4MCG/KG/MIN AND D5NS @50 ML/HR. FC IN PLACE DRAINING TO GRAVITY. SKIN NOT INTACT, SEE WOUND ASSESSMENT. INITIAL ASSESSMENT COMPLETED. SAFETY MEASURES IN PLACE. WILL CONTINUE TO MONITOR.
--- NOTE | 2021-06-24 20:10 | NUR ---
DR. RG CALLED BACK. WAS NOTIFIED OF PT WBC LEVEL, AND RECEIVED ORDERS TO RENEW MERREM 500MG Q12H IV.
[2021-06-24] MEDS ORDERED: MEROPENEM 500 MG VIAL IV ONE (20:55)
[2021-06-24] MEDS: MEROPENEM 500 MG in NACL 0.9% 50 ML IV SCH (21:00)
--- NOTE | 2021-06-24 21:14 | NUR ---
SCHEDULED MEDS ADMINISTERED ORDERED. TOLERATED WELL. NADR NOTED. WILL CONTINUE TO MONITOR.
[2021-06-25] VITALS (25 sets, daily range): BP systolic 90–147; BP diastolic 37–86
[2021-06-25] MEDS: BLOOD GLUCOSE MONITORING 1 DEV DEV FS SCH ×5 (00:09→23:39)
--- NOTE | 2021-06-25 00:09 | NUR ---
BLOOD SUGAR READING @143 MG/DL. NO INSULIN COVERAGE NEEDED AT THIS TIME. WILL CONTINUE TO MONITOR. Addendum: 06/25/21 at 0435 by Fer Arechiga RN NO INSULIN COVERAGE NEEDED AT THIS TIME PER SLIDING SCALE.
--- NOTE | 2021-06-25 00:20 | NUR ---
NOTIFIED BY RT ABOUT REDNESS TO BRIDGE OF NOSE FROM BI-PAP MASK. AREA WAS CLEANED WITH STERILE WATER; VERSATEL AND OPTIFOAM APPLIED TO AREA WITH REDNESS IN ATTEMPT TO RELIEVE PRESSURE TO AREA. WILL CONTINUE TO MONITOR.
[2021-06-25] MEDS: Z-GUARD PASTE TP SCH ×2 (01:00→13:36)
--- NOTE | 2021-06-25 03:15 | NUR ---
PT OBSERVED LAYING IN BED CONNECTED TO BI-PAP. VSS. NO SIGNS OF SOB NOTED. CHEST RISE AND FALL PRESENT. WILL CONTINUE TO MONITOR.
[2021-06-25 04:53] LABS: BASOPHILS # (AUTO) 0.1 K/uL (0.00-0.22); EOSINOPHILS # (AUTO) 0.6 K/uL (0-0.4); EOSINOPHILS % (AUTO) 4.7 % (0.0-4.0); HEMATOCRIT 26.9 % (36-52); HEMOGLOBIN 9.3 g/dL (12.0-18.0); LYMPHOCYTES # (AUTO) 1.3 K/uL (2.0-11.5); MEAN CORPUSCULAR HEMOGLOBIN 31 pg (27-31); MEAN CORPUSCULAR HGB CONC 34 g/dL (33-37); MEAN CORPUSCULAR VOLUME 91.6 fL (80-94); MONOCYTES % (AUTO) 7.7 % (1.7-9.3); NEUTROPHILS # (AUTO) 9.8 K/uL (1.8-7.7); NEUTROPHILS % (AUTO) 76.6 % (42.2-75.2); PLATELET COUNT (AUTO) 267 K/uL (140-450); RED BLOOD CELL COUNT(AUTO) 2.94 MIL/uL (4.20-6.10); RED CELL DISTRIBUTION WIDTH 13.6 % (11.6-13.7); WHITE BLOOD COUNT (AUTO) 12.8 K/uL (4.8-10.8)
[2021-06-25 04:58] LABS: ALBUMIN 2.4 g/dL (3.4-5.0); ANION GAP 13.1 (8-16); ASPARTATE AMINOTRANSFERASE 18 U/L (15-37); CARBON DIOXIDE 26.6 mmol/L (21-32); CHLORIDE 98 mmol/L (98-107); CREATININE 2.4 mg/dL (0.6-1.3); GLUCOSE 172 mg/dL (74-106); POTASSIUM 3.7 mmol/L (3.5-5.1); SODIUM SERUM 134 mmol/L (136-145); TOTAL BILIRUBIN 0.3 mg/dL (0.0-1.0); UREA NITROGEN, BLOOD 34 mg/dL (7-18)
--- NOTE | 2021-06-25 05:18 | NUR ---
AM CARE CARE AND ELENO CARE PROVIDED. PT TURNED AND REPOSITIONED. WILL CONTINUE TO MONITOR.
[2021-06-25] MEDS: INSULIN LISPRO SLIDING SCALE 100 UNITS/ML VIAL SUBQ PRN ×2 (06:03→23:42)
[2021-06-25] MEDS: MIDODRINE 5 MG TAB PO SCH ×3 (06:53→19:00)
[2021-06-25] MEDS: DOPamine 400 MG/D5W PREMIX 250 ML IV PRN (07:00)
--- NOTE | 2021-06-25 07:22 | NUR ---
REPORT GIVEN TO DAYSHIFT RN FOR TRANSFER OF CARE
[2021-06-25] MEDS: ENOXAPARIN 30 MG/0.3 ML SYR SUBQ SCH (08:42)
[2021-06-25] MEDS: QUEtiapine FUMARATE 25 MG TAB PO SCH ×2 (08:42→20:27)
[2021-06-25] MEDS: DEXT 5% / NACL 0.9% 500 ML IV SCH ×2 (09:00→17:45)
[2021-06-25] MEDS: MEROPENEM 500 MG in NACL 0.9% 50 ML IV SCH ×2 (09:14→20:27)
[2021-06-25] MEDS: SKINTEGRITY HYDROGEL TP SCH (09:14)
--- NOTE | 2021-06-25 09:53 | NUR ---
(06/25/21) RD FOLLOW UP COMPLETED PLEASE REFER TO NUTRITION PROGRESS NOTE UNDER CARE ACTIVITY FOR ESTIMATED NUTRITION NEEDS. RD RECOMMENDATIONS: 1. CONTINUE PUREE HONEY-THICK LIQUIDS TOLERATED + ENCOURAGE PO INTAKES >50% AT ALL MEALS TID. 2. RDN INCREASED GABRIEL TO TID PER PROTOCOL 3. IF PTS PO INTAKES DO NOT INCREASE TO >50% AT MEALS UPON NEXT F/U, RDN TO CONSIDER ADDING ONS PER PROTOCOL WITH MEALS TID. 4. RD TO FOLLOW-UP 2-3 DAYS, MODERATE RISK KAREN AGRAWAL MS, RDN
--- NOTE | 2021-06-25 10:10 | NUR ---
PATIENT WAS TAKEN OFF OF BIPAP AT 08:15 AND PLACED ON 4 LPM. PT SPO2 IS 98% AND STABLE, WILL CONTINUE TO MONITOR.
[2021-06-25] MEDS: NON ADHERENT DRESSING TP SCH (13:37)
[2021-06-25] MEDS: FUROSEMIDE 40 MG/4 ML VIAL IVP SCH (17:46)
--- NOTE | 2021-06-25 19:17 | NUR ---
report given to Delfino
--- NOTE | 2021-06-25 19:32 | NUR ---
REPORT RECEIVED FROM VEE RAMIREZ FOR CONTINUITY CARE. PT LAYING IN BED ON 4L NC. VSS. CHEST RISE AND FALL NOTED. JORDON MIDLINE PATENT AND INTACT INFUSING DOPAMINE @3MCG/KG/MIN AND D5NS @50 ML/HR. FC IN PLACE DRAINING TO GRAVITY. SKIN NOT INTACT, SEE WOUND ASSESSMENT. INITIAL ASSESSMENT COMPLETED. SAFETY MEASURES IN PLACE. WILL CONTINUE TO MONITOR.
--- NOTE | 2021-06-25 19:55 | NUR ---
PT TEMP OBSERVED AT 96.4F. BLANKETS PROVIDED AND PANDA WARMER APPLIED. WILL CONTINUE TO MONITOR.
--- NOTE | 2021-06-25 20:26 | NUR ---
RT AT BEDSIDE TO OBTAIN ABG.
--- NOTE | 2021-06-25 20:33 | NUR ---
ABG DRAWN (PRIOR TO NOC NIV) AND RESULTS REPORTED TO COMPENSATOR WORKER DR SIMON ([facility]) PH 7.26 CO2 61.8 HCO3 27 PO2 56 BE -0.4 DR SIMON WAS ALSO INFORMED ABG WAS DRAWN PRIOR TO NOC NIV INITIATION (PT FOUND ON 5LNC)
--- NOTE | 2021-06-25 21:10 | NUR ---
RT AT BEDSIDE. PT PLACED ON BI-PAP. O2 SATURATION @96%. WILL CONTINUE TO MONITOR.
--- NOTE | 2021-06-25 21:30 | NUR ---
SCHEDULED MEDS ADMINISTERED ORDERED. NADR NOTED. VSS. WILL CONTINUE TO MONITOR.
--- NOTE | 2021-06-25 23:05 | NUR ---
PT TEMP RE-CHECKED @96.8. PT NODDED "YES" WHEN ASKED IF HE WAS FEELING COLD. CONTINUING WITH PANDA WARMER AND BLANKETS. WILL CONTINUE TO MONITOR.
--- NOTE | 2021-06-25 23:48 | NUR ---
PT OBSERVED. NO SIGNS OF DISTRESS NOTED. CHEST RISE AND FALL PRESENT. SINUS DEAN ON MONITOR. BP STABLE IN 100s. WILL CONTINUE TO MONITOR. Addendum: 06/26/21 at 0323 by Fer Arechiga RN INCORRECT PATIENT
--- NOTE | 2021-06-25 23:48 | NUR ---
PT OBSERVED. LAYING IN BED ASLEEP. VSS. CHEST RISE AND FALL PRESENT. WILL CONTINUE TO MONITOR.
[2021-06-26] VITALS (29 sets, daily range): BP systolic 106–165; BP diastolic 35–107
[2021-06-26] MEDS: Z-GUARD PASTE TP SCH ×2 (01:19→12:31)
[2021-06-26] MEDS: DOPamine 400 MG/D5W PREMIX 250 ML IV PRN ×2 (01:30→20:25)
--- NOTE | 2021-06-26 01:45 | NUR ---
PT TEMP RE-CHECKED NOW @97.5F. WILL CONTINUE TO MONITOR.
--- NOTE | 2021-06-26 03:21 | NUR ---
AM CARE, ELENO CARE, AND ORAL CARE PROVIDED. TOLERATED WELL. WILL CONTINUE TO MONITOR. Addendum: 06/26/21 at 0323 by Fer Arechiga RN INCORRECT PATIENT
[2021-06-26] MEDS: DEXT 5% / NACL 0.9% 500 ML IV SCH ×3 (03:30→12:31)
--- NOTE | 2021-06-26 04:48 | NUR ---
AM CARE AND ELENO CARE PROVIDED. PT TURNED AND REPOSITIONED. RENETTA WARMABHAY RE-APPLIED. WILL CONTINUE TO MONITOR.
[2021-06-26 05:21] LABS: BASOPHILS # (AUTO) 0.1 K/uL (0.00-0.22); BASOPHILS % (AUTO) 1.3 % (0.0-2.0); EOSINOPHILS # (AUTO) 0.5 K/uL (0-0.4); EOSINOPHILS % (AUTO) 5.8 % (0.0-4.0); HEMATOCRIT 26.3 % (36-52); LYMPHOCYTES % (AUTO) 10.8 % (20.5-51.1); MEAN CORPUSCULAR HEMOGLOBIN 32 pg (27-31); MEAN CORPUSCULAR HGB CONC 34 g/dL (33-37); MEAN CORPUSCULAR VOLUME 92.2 fL (80-94); MONOCYTES % (AUTO) 11.1 % (1.7-9.3); NEUTROPHILS # (AUTO) 6.6 K/uL (1.8-7.7); PLATELET COUNT (AUTO) 296 K/uL (140-450); RED BLOOD CELL COUNT(AUTO) 2.85 MIL/uL (4.20-6.10); RED CELL DISTRIBUTION WIDTH 13.8 % (11.6-13.7); WHITE BLOOD COUNT (AUTO) 9.4 K/uL (4.8-10.8)
[2021-06-26] MEDS: BLOOD GLUCOSE MONITORING 1 DEV DEV FS SCH ×3 (06:00→18:16)
[2021-06-26 06:05] LABS: ALBUMIN 2.3 g/dL (3.4-5.0); ANION GAP 11.2 (8-16); ASPARTATE AMINOTRANSFERASE 23 U/L (15-37); CARBON DIOXIDE 27.7 mmol/L (21-32); CHLORIDE 101 mmol/L (98-107); CREATININE 2.3 mg/dL (0.6-1.3); GLUCOSE 121 mg/dL (74-106); POTASSIUM 3.9 mmol/L (3.5-5.1); SODIUM SERUM 136 mmol/L (136-145); TOTAL BILIRUBIN 0.3 mg/dL (0.0-1.0); UREA NITROGEN, BLOOD 39 mg/dL (7-18)
[2021-06-26 06:07] LABS: HEPATITIS B CORE AB TOTAL Negative (Negative); HEPATITIS B SURFACE ANTIBODY Non Reactive (.); HEPATITIS B SURFACE ANTIGEN Negative (Negative)
[2021-06-26] MEDS: MIDODRINE 5 MG TAB PO SCH ×3 (06:51→18:44)
--- NOTE | 2021-06-26 07:20 | NUR ---
RECEIVED REPORT FROM MODERN DANCER NURSE. PT IS RESTING IN BED AND IN NO SIGN OF DISTRESS. PT HAS A RIGHT IJ FOR HD AND A MIDLINE ON THE RIGHT UPPER ARM WITH D5 NS RUNNING AT 50 ML/HR AND DOPAMINE AT 3 MCG/KG/MIN. PT IS ON BIPAP. PT HAS A NG TUBE ON THE RIGHT NARE. 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 MENDEZ IN PLACE AND INTACT. PT HAS A LEFT BKA. ALL SAFETY PRECAUTIONS ARE IN PLACE AND WILL CONTINUE TO MONITOR.
--- NOTE | 2021-06-26 07:25 | NUR ---
REPORT GIVEN TO VEE MELENDEZ FOR CONTINUITY OF CARE.
[2021-06-26] MEDS: FUROSEMIDE 40 MG/4 ML VIAL IVP SCH ×2 (08:47→17:09)
[2021-06-26] MEDS: MEROPENEM 500 MG in NACL 0.9% 50 ML IV SCH ×2 (08:47→21:50)
[2021-06-26] MEDS: QUEtiapine FUMARATE 25 MG TAB PO SCH ×2 (08:47→21:50)
[2021-06-26] MEDS: ENOXAPARIN 30 MG/0.3 ML SYR SUBQ SCH (08:48)
[2021-06-26] MEDS: SKINTEGRITY HYDROGEL TP SCH (08:49)
--- NOTE | 2021-06-26 11:05 | NUR ---
DR. MCDONALD AT BEDSIDE. PER DR. MCDONALD ORDERS, PT WILL BE ON NC DURING DAYTIME AND BIPAP DURING NIGHT TIME. CALLED RT VIA PHONE TO PLACE PT ON NC. WILL CONTINUE TO MONITOR.
--- NOTE | 2021-06-26 11:43 | NUR ---
REMOVED PATIENT FROM BIPAP TO MASK VORBO DR. SAMANTHA MCDONALD AT 1105 PLACED ON SUPPLEMENTAL OXYGEN AT 4 LPM VIA NC SATURATION 97% TITRATED FIO2 TO 3 LPM NORA/RN NOTIFIED
[2021-06-26] MEDS: INSULIN LISPRO SLIDING SCALE 100 UNITS/ML VIAL SUBQ PRN (12:09)
[2021-06-26] MEDS: NON ADHERENT DRESSING TP SCH (12:31)
--- NOTE | 2021-06-26 13:40 | NUR ---
WOUND NURSE AT BEDSIDE AND WOUND CARE WAS CONDUCTED.
[2021-06-26] MEDS ORDERED: ALBUTEROL SULFATE/IPRATROPIU 3 ML SOL IH PRN (16:40)
--- NOTE | 2021-06-26 18:25 | NUR ---
SON CALLED TO GET UPDATE ON PT.
--- NOTE | 2021-06-26 18:44 | NUR ---
PT IS ABLE TO EAT PUREE FOOD WITH MEDICATION BUT REFUSES TO EAT FOOD.
--- NOTE | 2021-06-26 19:22 | NUR ---
ENDORSED CARE TO COMPUTER DRAFTER NURSE FOR CONTINUITY OF CARE.
--- NOTE | 2021-06-26 19:30 | NUR ---
RECEIVED PATIENT ON BED IN HIGH BACK REST POSITION; ALERT, ABLE TO FOLLOW SIMPLE COMMANDS. VENTILATING ON 3 LITERS /; SO2 99%. COMMENCING ON IV DOPAMINE FOR BP MAINTENANCE VIA MIDLINE TO RIGHT UPPER ARM; INTACT. ABDOMEN IS SOFT, VERY OBESE. BOWEL SOUNDS +. WITH MENDEZ CATH TO BEDSIDE URINE BAG; INTACT.
--- NOTE | 2021-06-26 20:30 | NUR ---
PUT ON BIPAP 30% AT FIO2.
[2021-06-26] MEDS: ALBUTEROL SULFATE/IPRATROPIU 3 ML SOL IH SCH (21:07)
--- NOTE | 2021-06-26 21:07 | NUR ---
NOC NIV INITIATED W/ SETTINGS THEY WERE PREV SET 14/6 f12 30% BIPAP ALARMS ON AND AUDIBLE BIPAP PLUGGED INTO RED OUTLET FACIAL BARRIER IN PLACE WILL CONTINUE TO MONITOR
--- NOTE | 2021-06-26 21:30 | NUR ---
PATIENT IS MORE ALERT AND COOPERATIVE.
[2021-06-27] VITALS (27 sets, daily range): BP systolic 91–143; BP diastolic 24–80
[2021-06-27] MEDS: BLOOD GLUCOSE MONITORING 1 DEV DEV FS SCH ×5 (00:30→23:25)
[2021-06-27] MEDS: Z-GUARD PASTE TP SCH ×2 (05:00→13:27)
--- NOTE | 2021-06-27 05:00 | NUR ---
MORNING BED BATH DONE; KEPT CLEAN, DRY AND COMFORTABLE.
[2021-06-27 06:00] LABS: ALBUMIN 2.3 g/dL (3.4-5.0); ANION GAP 11.7 (8-16); ASPARTATE AMINOTRANSFERASE 25 U/L (15-37); CARBON DIOXIDE 29.1 mmol/L (21-32); CHLORIDE 104 mmol/L (98-107); CREATININE 2.1 mg/dL (0.6-1.3); GLUCOSE 134 mg/dL (74-106); POTASSIUM 3.8 mmol/L (3.5-5.1); SODIUM SERUM 141 mmol/L (136-145); TOTAL BILIRUBIN 0.3 mg/dL (0.0-1.0); UREA NITROGEN, BLOOD 37 mg/dL (7-18)
[2021-06-27 06:26] LABS: BASOPHILS # (AUTO) 0.3 K/uL (0.00-0.22); BASOPHILS % (AUTO) 3.3 % (0.0-2.0); EOSINOPHILS # (AUTO) 0.4 K/uL (0-0.4); EOSINOPHILS % (AUTO) 5.3 % (0.0-4.0); HEMATOCRIT 27.6 % (36-52); HEMOGLOBIN 9.3 g/dL (12.0-18.0); LYMPHOCYTES # (AUTO) 1.5 K/uL (2.0-11.5); LYMPHOCYTES % (AUTO) 18.8 % (20.5-51.1); MEAN CORPUSCULAR HEMOGLOBIN 31 pg (27-31); MEAN CORPUSCULAR HGB CONC 34 g/dL (33-37); MEAN CORPUSCULAR VOLUME 91.9 fL (80-94); MONOCYTES # (AUTO) 1.1 K/uL (0.8-1.0); MONOCYTES % (AUTO) 13.8 % (1.7-9.3); NEUTROPHILS # (AUTO) 4.7 K/uL (1.8-7.7); NEUTROPHILS % (AUTO) 58.8 % (42.2-75.2); PLATELET COUNT (AUTO) 317 K/uL (140-450); RED CELL DISTRIBUTION WIDTH 14.3 % (11.6-13.7); WHITE BLOOD COUNT (AUTO) 7.9 K/uL (4.8-10.8)
[2021-06-27] MEDS: MIDODRINE 5 MG TAB PO SCH ×3 (06:43→18:35)
--- NOTE | 2021-06-27 07:23 | NUR ---
RECEIVED REPORT FROM TELEPHONE OPERATOR NURSE. PT IS RESTING IN BED AND IN NO SIGN OF DISTRESS. PT HAS A RIGHT IJ FOR HD AND A MIDLINE ON THE RIGHT UPPER ARM WITH D5 NS RUNNING AT 50 ML/HR AND DOPAMINE AT 2 MCG/KG/MIN. PT IS ON BIPAP. 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 MENDEZ IN PLACE AND INTACT. PT HAS A LEFT BKA. ALL SAFETY PRECAUTIONS ARE IN PLACE AND WILL CONTINUE TO MONITOR.
[2021-06-27] MEDS: ALBUTEROL SULFATE/IPRATROPIU 3 ML SOL IH SCH ×3 (07:34→21:22)
--- NOTE | 2021-06-27 08:20 | NUR ---
DR. SOLIS AT BEDSIDE. PER ORDERS, DOPAMINE IS ON HOLD AND WILL CONTINUE TO MONITOR PT BP.
[2021-06-27] MEDS: ENOXAPARIN 30 MG/0.3 ML SYR SUBQ SCH (08:42)
[2021-06-27] MEDS: FUROSEMIDE 40 MG/4 ML VIAL IVP SCH ×2 (08:42→17:46)
[2021-06-27] MEDS: QUEtiapine FUMARATE 25 MG TAB PO SCH ×2 (08:42→20:41)
[2021-06-27] MEDS: SKINTEGRITY HYDROGEL TP SCH (08:43)
[2021-06-27] MEDS: DEXT 5% / NACL 0.9% 500 ML IV SCH ×2 (09:30→19:30)
--- NOTE | 2021-06-27 12:37 | NUR ---
CT DR. NARANJO VERBAL ORDERS, D5 NS WILL BE HELD. WILL CONTINUE TO MONITOR.
[2021-06-27] MEDS: NON ADHERENT DRESSING TP SCH (13:27)
--- NOTE | 2021-06-27 14:03 | NUR ---
06/27/21 RD FOLLOW UP COMPLETED PLEASE REFER TO NUTRITION ASSESSMENT UNDER CARE ACTIVITY FOR ESTIMATED NUTRITIONAL NEEDS. 1. CONTINUE PUREE HONEY-THICK LIQUIDS TOLERATED + ENCOURAGE PO INTAKES >50% AT ALL MEALS TID. 2. CONTINUE GABRIEL TID PER PROTOCOL 3. RECOMMEND NEPRO HONEY THICK BID PER PROTOCOL 4. RD TO FOLLOW-UP 3-5 DAYS, MODERATE RISK BETTY MCCLURE RD
--- NOTE | 2021-06-27 19:28 | NUR ---
ENDORSED CARE TO STICK ROLLER NURSE FOR CONTINUITY OF CARE.
--- NOTE | 2021-06-27 19:30 | NUR ---
REPORT RECEIVED FROM NORA CARRINGTON, FOR CONTINUITY OF CARE. PATIENT CURRENTLY IN BED RESTING ON 3LNC WITH O2 SATURATIONS AT 94%. PATIENT UNDER NO DISTRESS AT THIS TIME, WILL CONTINUE TO MONITOR.
--- NOTE | 2021-06-27 21:00 | NUR ---
RT AT BEDSIDE, PLACING PATIENT ON BIPAP FOR EVENING
--- NOTE | 2021-06-27 21:24 | NUR ---
ABRASION LOCATED ON BRIDGE OF PATIENT'S NOSE. WOUND NOT BLEEDING AND APPEARS TO BE IN HEALING STAGES. WOUND CREAM, VERSATEL BARRIER AND OPTIFOAM DRESSING APPLIED TO PREVENT WORSENING OF WOUND.
--- NOTE | 2021-06-27 23:36 | NUR ---
BLOOD GLUCOSE 94. NO COVERAGE NEEDED.
[2021-06-28] VITALS (20 sets, daily range): BP systolic 89–159; BP diastolic 27–78
[2021-06-28] MEDS: Z-GUARD PASTE TP SCH ×2 (01:00→12:56)
[2021-06-28] MEDS: ALBUTEROL SULFATE/IPRATROPIU 3 ML SOL IH SCH ×4 (01:38→20:35)
[2021-06-28] MEDS: DEXT 5% / NACL 0.9% 500 ML IV SCH (05:23)
[2021-06-28] MEDS: BLOOD GLUCOSE MONITORING 1 DEV DEV FS SCH ×3 (05:44→17:51)
--- NOTE | 2021-06-28 05:45 | NUR ---
PATIENT BLOOD GLUCOSE 104. NO COVERAGE NEEDED.
[2021-06-28] MEDS: MIDODRINE 5 MG TAB PO SCH ×3 (06:14→19:41)
[2021-06-28 06:51] LABS: ALBUMIN 2.4 g/dL (3.4-5.0); ANION GAP 13.4 (8-16); ASPARTATE AMINOTRANSFERASE 32 U/L (15-37); CARBON DIOXIDE 27.2 mmol/L (21-32); CHLORIDE 106 mmol/L (98-107); CREATININE 2.1 mg/dL (0.6-1.3); GLUCOSE 102 mg/dL (74-106); POTASSIUM 3.6 mmol/L (3.5-5.1); SODIUM SERUM 143 mmol/L (136-145); TOTAL BILIRUBIN 0.3 mg/dL (0.0-1.0); UREA NITROGEN, BLOOD 41 mg/dL (7-18)
--- NOTE | 2021-06-28 06:51 | NUR ---
RT DC'D NOC BIPAP AND REPLACED ON 3L NC
[2021-06-28 06:54] LABS: HEMATOCRIT 24.5 % (36-52); HEMOGLOBIN 8.3 g/dL (12.0-18.0); MEAN CORPUSCULAR HEMOGLOBIN 31 pg (27-31); MEAN CORPUSCULAR HGB CONC 34 g/dL (33-37); MEAN CORPUSCULAR VOLUME 92.8 fL (80-94); PLATELET COUNT (AUTO) 301 K/uL (140-450); RED BLOOD CELL COUNT(AUTO) 2.64 MIL/uL (4.20-6.10); RED CELL DISTRIBUTION WIDTH 14.4 % (11.6-13.7)
--- NOTE | 2021-06-28 07:03 | NUR ---
REPORT GIVEN TO DAYSHIFT RN FOR CONTINUITY OF CARE
--- NOTE | 2021-06-28 07:30 | NUR ---
RECEIVED REPORT FROM SEISMIC PROSPECTING OBSERVER HELPER NURSE. PT IS RESTING IN BED AND IN NO SIGN OF DISTRESS. AOX3, VERBAL, ABLE TO FOLLOW SIMPLE COMMANDS. PT HAS A RIGHT IJ FOR HD AND A MIDLINE ON THE RIGHT UPPER ARM WITH D5 NS RUNNING AT 5 ML/HR. ON 3L NC. SKIN NOT INTACT, REFER TO SKIN ASSESSMENT AND A LEFT BKA. MENDEZ IN PLACE AND INTACT. ALL SAFETY PRECAUTIONS ARE IN PLACE AND WILL CONTINUE TO MONITOR.
--- NOTE | 2021-06-28 08:30 | NUR ---
DUE MEDS GIVEN PO CRUSHED, ASSISTED WITH BREAKFAST, TOLERATED WELL. ATE 25%
[2021-06-28] MEDS: ENOXAPARIN 30 MG/0.3 ML SYR SUBQ SCH (09:13)
[2021-06-28] MEDS: QUEtiapine FUMARATE 25 MG TAB PO SCH ×2 (09:13→20:54)
[2021-06-28] MEDS: FUROSEMIDE 40 MG/4 ML VIAL IVP SCH (09:13)
[2021-06-28] MEDS: SKINTEGRITY HYDROGEL TP SCH (09:14)
--- NOTE | 2021-06-28 09:30 | NUR ---
SEEN AND EXAMINED BY KIERAN VÁZQUEZ TO DOWNGRADE TO TELE, ORDERED LTAC EVAL
--- NOTE | 2021-06-28 11:30 | NUR ---
SEEN AND EXAMINED BY DR NARANJO, ORDERED TO STOP LASIX, STOP CURRENT IVF, START NS 40ML/HR FOR A TOTAL VOLUME OF 500 X 1 BAG
--- NOTE | 2021-06-28 12:30 | NUR ---
BLOOD SUGAR 138, NO COVERAGE
--- NOTE | 2021-06-28 12:45 | NUR ---
ASSISTED WITH LUNCH, ATE 30%
[2021-06-28] MEDS: NACL 0.9% 500 ML IV SCH (12:54)
[2021-06-28] MEDS: NON ADHERENT DRESSING TP SCH (12:55)
[2021-06-28 13:01] LABS: BASOPHILS % (MANUAL) 1 % (0-2); BLASTS, MANUAL % 0 % (0-0); EOSINOPHILS % (MANUAL) 6 % (0-4); LYMPHOCYTES % (MANUAL) 21 % (20-46); METAMYELOCYTES % 0 % (0-0); MONOCYTES % (MANUAL) 15 % (5-12); MYELOCYTES % 1 % (0-0); OTHER CELLS,MANUAL % 0 (0-0); PROMYELOCYTES % 0 % (0-0)
--- NOTE | 2021-06-28 14:30 | NUR ---
WOUND CARE RE-EVALUATION NOTE: NO MAJOR CHANGE FROM LAST VISIT, WILL CONTINUE THE SAME TX. INTEGUMENTARY: -INTERTRIGO LOWER ABDOMINAL FOLDS, AND GROINS MULTIPLE EROSIONS CONTINUE TO IMPROVE, MOIST AND PINK -SEVERE MOISTURE ASSOCIATED DERMATITIS TO SCROTAL AND ELENO-RECTAL, MULTIPLE EROSIONS RESURFACING -RIGHT BUTTOCK PRESSURE INJURY STAGE 3 8X5CM SUPERFICIAL DEPTH WOUND BED 100% GRANULATION TISSUE, MOIST, NO ODOR, ELENO WOUND SKIN NON-BLANCHABLE REDNESS -LEFT BUTTOCK PRESSURE INJURY STAGE 3 7X2 SUPERFICIAL DEPTH WOUND BED 100% GRANULATION TISSUE, MOIST, NO ODOR, ELENO WOUND SKIN NON-BLANCHABLE REDNESS WITH THIN EASILY TO TORN SKIN - SACRALCOCCYX PRESSURE INJURY STAGE 3 5 X 3 X 0.2 CM. WOUND BED PINK, MOIST, 100% GRANULATING, MINIMAL SEROUS DRAINAGE, NO ODOR. ELENO-WOUND MOIST, PINK. - RIGHT ISCHIUM PRESSURE INJURY UN-STAGEABLE WITH 8X4XCM. WOUND BED 100% GRANULATING,MOIST NO ODOR. ELENO-WOUND SKIN MOIST AND RED - LEFT ISCHIUM PRESSURE INJURY STAGE 3 WITH 3X5CM. WOUND BED PINK, MOIST, 100% GRANULATING, MOIST, NO ODOR. ELENO-WOUND HEALED SCAR -LEFT LOWER LEG PARTIAL THICKNESS SKIN LOSS 9X3 SUPERFICIAL DEPTH WOUND BED PINK AND MOIST, NO ODOR.
--- NOTE | 2021-06-28 14:30 | NUR ---
SEEN BY PT, WOUND CARE DONE, TURNED AND REPOSITIONED
--- NOTE | 2021-06-28 17:00 | NUR ---
ASLEEP IN BED, NO S/S OF PAIN, NO SOB
--- NOTE | 2021-06-28 18:00 | NUR ---
ASSISTED WITH DINNER AT 15%
--- NOTE | 2021-06-28 19:20 | NUR ---
RECEIVED REPORT FROM DAY SHIFT RN FOR CONTINUATION OF CARE.
--- NOTE | 2021-06-28 21:55 | NUR ---
RT at bedside for placing bipap on
[2021-06-29] VITALS (8 sets, daily range): BP systolic 85–140; BP diastolic 40–70
[2021-06-29] MEDS: BLOOD GLUCOSE MONITORING 1 DEV DEV FS SCH ×4 (00:22→17:24)
[2021-06-29] MEDS: ALBUTEROL SULFATE/IPRATROPIU 3 ML SOL IH SCH ×4 (00:28→20:02)
[2021-06-29] MEDS: NACL 0.9% 500 ML IV SCH ×2 (00:45→17:34)
[2021-06-29] MEDS: Z-GUARD PASTE TP SCH ×2 (01:48→13:00)
--- NOTE | 2021-06-29 05:30 | NUR ---
provided patient pericare, changed sheets, and applied finesse pads. Patient tolerated well.
--- NOTE | 2021-06-29 06:47 | NUR ---
Bedside report given to RN on medsurg/tele floor. patient gone to bed 115 via rney with Melonie RN and Fer CARRINGTON.
[2021-06-29] MEDS: MIDODRINE 5 MG TAB PO SCH ×3 (07:00→20:19)
--- NOTE | 2021-06-29 07:01 | NUR ---
RECEIVED BEDSIDE REPORT FROM ICU ROTARY SHEAR WORKER HELPEREfraín SANDRA TAKEN AND RECORDED. PATIENT LYING COMFORTABLY ON BED WITH OXYGEN AT 3L/NC. MIDODRINE GIVEN ORDERED. Addendum: 06/29/21 at 0747 by Karely Donis RN MIDODRINE NOT GIVEN. SBP 142.
--- NOTE | 2021-06-29 07:40 | NUR ---
REPORT RECEIVED FROM PM SHIFT RN . PT. WAS TRANSFERRED FROM ICU. IN AM. PT. LYING INTHE BED COMFORTABLY. NC 3L. WITH NO DISTRESS NOTED. ALL SAFETY MEASURES IN PLACE. WILL CONTINUE TO MONITOR THE PT.
[2021-06-29] MEDS: SKINTEGRITY HYDROGEL TP SCH (09:00)
[2021-06-29] MEDS: ENOXAPARIN 30 MG/0.3 ML SYR SUBQ SCH (09:31)
[2021-06-29] MEDS: QUEtiapine FUMARATE 25 MG TAB PO SCH ×2 (09:31→20:19)
--- NOTE | 2021-06-29 10:00 | NUR ---
PT. STABLE , LYING IN THE BED. WITH NO S/S OF DISTRESS NOTED. ADMINISTRED MEDICATION DUE. PT. TOLERATED WELLALL SAFETY MEASURES IN PLACE.WILL CONTINUE TO MONITOR THE PT.
[2021-06-29 12:54] LABS: ANION GAP 14.1 (8-16); CARBON DIOXIDE 27.6 mmol/L (21-32); CHLORIDE 108 mmol/L (98-107); CREATININE 2.1 mg/dL (0.6-1.3); GLUCOSE 133 mg/dL (74-106); POTASSIUM 3.7 mmol/L (3.5-5.1); SODIUM SERUM 146 mmol/L (136-145); UREA NITROGEN, BLOOD 44 mg/dL (7-18)
[2021-06-29] MEDS: NON ADHERENT DRESSING TP SCH (13:00)
--- NOTE | 2021-06-29 15:00 | NUR ---
ROUNDED TO THE PT'S ROOM. PT. COMFORTABLY SLEEPING. WITH NO ACUTE DISTRESS NOTED ON ROOM AIR. ALL SAFETY MEASURES IN PLACE. WILL CONTINUE TO MONITOR THE PT.
--- NOTE | 2021-06-29 17:00 | NUR ---
PT. SLEEPING IN THE BED COMFORTABLY, STABLE ON ROOM AIR. NO S/S OF DISTRESS OBSERVED. ALL SAFETY MEASURES IN PLACE. WILL CONTINUE TO MONITOR THE PT.
--- NOTE | 2021-06-29 19:29 | NUR ---
ENDORSED REPORT TO PM SHIFT ZEB TOVAR FOR CONTINUITY OF CARE. PT. STABLE.
--- NOTE | 2021-06-29 19:30 | NUR ---
RECEIVED REPORT FROM RN DAYSHIFT NURSE AT BEDSIDE FOR CONTINUITY OF CARE, PT SITTING UP IN BED ON 3 LITERS VIA N/C. HE HAS A RIGHT UPPER MIDLINE INTACT AND RUNNING N/S AT 40MLS/HR. PT HAS RIGHT IJ INTACT AND ASYMPTOMATIC.
--- NOTE | 2021-06-29 19:30 | NUR ---
RECEIVED REPORT FROM RN DAYSHIFT NURSE AT BEDSIDE PT SITTING UP 90% ON A WOUND BED WITH 2 LITERS VIA N/C. PT IS AWAKE AND ALERT. HE HAS A RIGHT IJ INTACT AND DRESSED FOR HD. PT ALSO HAS A RIGHT UPPER ARM MIDLINE RUNNING NORMAL SALINE AT 40MLS/HR TO KVO. PT HAS A MENDEZ CATHETER INTACT AND DRAINING YELLOW URINE. ALL ORDERED PRECAUTIONS IN PLACE.
--- NOTE | 2021-06-29 21:00 | NUR ---
PT IN BED HOB UP 90%. PT RECEIVED ALL ORDERED MEDICATION. EDUCATION RECEIVED REGARDING MEDICATION. N/S RUNNING AT 40 ORDERED. ALL ORDERED PRECAUTIONS IN PLACE.
[2021-06-30] VITALS: BP 149/49
--- NOTE | 2021-06-30 | NUR ---
PT IN BED ON BI[PAP FLUIDS RUNNING ORDERED. PT HAS NO S/S OF PAIN , HE DECLINES TO BE REPOSITIONED AT THIS TIME, ALL ORDERED PROTOCOL IN PLACE.
[2021-06-30] MEDS: ALBUTEROL SULFATE/IPRATROPIU 3 ML SOL IH SCH ×4 (01:00→21:14)
[2021-06-30] MEDS: Z-GUARD PASTE TP SCH ×2 (01:00→13:00)
[2021-06-30 04:00] VITALS: BP 145/55
[2021-06-30] MEDS: NACL 0.9% 500 ML IV SCH ×2 (05:52→14:15)
--- NOTE | 2021-06-30 06:00 | NUR ---
MIDODRINE HELD DE TO INCREASED B/P 145/56. PT FINGERSTICK WITHIN RANGE NO COVERAGE NEEDED. PT WAS TURNED AND REPOSITIONED IN BED, MENDEZ CATHETER CARE PROVIDED. DRESSING INTACT. STUMP REDRESSED. PT DENIES ANY PAIN . HE CONTINUES ON NIGHT TIME BIPAP.
[2021-06-30] MEDS: BLOOD GLUCOSE MONITORING 1 DEV DEV FS SCH ×4 (06:25→18:00)
[2021-06-30] MEDS: MIDODRINE 5 MG TAB PO SCH ×3 (06:48→19:00)
--- NOTE | 2021-06-30 07:45 | NUR ---
RECEIVED REPORT FROM PM SHIFT RN GUY. PT. IS ON BIPAP AT PRESENR. COMFORTABLY SLEEPING. NO S/S OF DISTRESS NOTED. SAFETY MEASURES IN PLACE. WILL CONTINUE TO MONITOR THE PT..
[2021-06-30 08:00] VITALS: BP 150/50
[2021-06-30] MEDS: QUEtiapine FUMARATE 25 MG TAB PO SCH ×2 (08:03→20:05)
[2021-06-30] MEDS: ENOXAPARIN 30 MG/0.3 ML SYR SUBQ SCH (08:04)
[2021-06-30] MEDS: SKINTEGRITY HYDROGEL TP SCH (09:00)
[2021-06-30 10:45] LABS: ANION GAP 12.8 (8-16); CARBON DIOXIDE 28.8 mmol/L (21-32); CHLORIDE 107 mmol/L (98-107); GLUCOSE 137 mg/dL (74-106); POTASSIUM 3.6 mmol/L (3.5-5.1); SODIUM SERUM 145 mmol/L (136-145); UREA NITROGEN, BLOOD 42 mg/dL (7-18)
[2021-06-30 12:00] VITALS: BP 138/34
--- NOTE | 2021-06-30 12:03 | NUR ---
PT. ALERT AWAKE ,RESTING IN THE BED. STABLE ON NC O2 3.0L, MAINTAINING SPO2 100%. ALL SAFETY MEASURES IN [facility]. WILL CONTINUE TO MONITOR THE PT.
[2021-06-30] MEDS: NON ADHERENT DRESSING TP SCH (13:00)
--- NOTE | 2021-06-30 13:00 | NUR ---
MIDODRINE DUE MEDICATION HELD DUE TO BP HIGH (138/34). WILL CONTINUE TO MONITOR THE PT.
--- NOTE | 2021-06-30 14:28 | NUR ---
PT. ALERT,AWAKE. NO NOTED DISTRESS. WOUND DRESSING CHANGED. KEPT CLEAN AND DRY. REPOSITIONED THE PT. ALL SAFETY MEASURES APPLIED. WILL CONTINUE TO MONITOR THE PT.
--- NOTE | 2021-06-30 15:22 | NUR ---
CRITICAL LAB RESULT URINE CULTURE POSITIVE FOR VRE, ENTROCOCCUS FAECIUM -VRE. . NOTIFIED TO DR. NILAM LOPEZ. WILL FOLLOW UP WITH MD'S ORDER. Addendum: 06/30/21 at 2004 by Grace Valente RN KARTHIKEYAN PTEfraín'S CHART.
[2021-06-30 16:00] VITALS: BP 140/37
--- NOTE | 2021-06-30 19:30 | NUR ---
ENDORSED REPORT TO PM SHIFT RN FOR CONTINUITY OF CARE. PT. STABLE.
--- NOTE | 2021-06-30 19:35 | NUR ---
RECEIVED PT FROM AM SHIFT NURSE. PATIENT IS ALERT,ON2L VIA NC,TR IJ INTACT,JORDON MIDLINERUNNING NS AT 40 ML/HR.MENDEZ INTACT.ALL SAFETY MEASURES IN PLACE.NO DISTRESS NOTED.
[2021-06-30 20:00] VITALS: BP 143/47
--- NOTE | 2021-06-30 21:30 | NUR ---
MEDICATIONS GIVEN .HELD MIDODRINE 5MG BP 143/47.
--- NOTE | 2021-06-30 22:00 | NUR ---
PT PLACED ON BIPAP AT HS. IV SITE INTACT AND RUNNING NORMAL SALINE AT 40MLS/HR. ALL ORDERED PRECAUTIONS IN PLACE.
--- NOTE | 2021-06-30 23:30 | NUR ---
ROUNDS COMPLETED. PT IN BED RESTING BUT AROUSABLE TO NAME, ALL REQUESTED ORDERERS ATTENDED BY STAFF. V/S FOLLOWS: T 97.9 P 68 R 18 B/P 140/86 02 99% ON ALL BIPAP SETTINGS. PT DECLINED TO TURN AT THIS TIME. ALL ORDERED PRECAUTIONS IN PLACE.
[2021-07-01] VITALS: BP 140/86
--- NOTE | 2021-07-01 | NUR ---
ROUNDS DONE, PT ASLEEP IN BED NO S/S OF RESPIRATORY DISTRESS FINGERSTICK IS 110. NO COVERAGE NEEDED.
[2021-07-01] MEDS: ALBUTEROL SULFATE/IPRATROPIU 3 ML SOL IH SCH ×4 (01:00→19:00)
[2021-07-01] MEDS: Z-GUARD PASTE TP SCH ×2 (01:00→13:43)
--- NOTE | 2021-07-01 01:30 | NUR ---
PATIENT SLEEPING AT THIS TIME. BIPAP IS ON ,NO DISTRESS NOTED.
[2021-07-01] MEDS: NACL 0.9% 500 ML IV SCH ×2 (02:36→17:36)
--- NOTE | 2021-07-01 03:30 | NUR ---
TURNED AND REPOSITIONED,PICC LINE DRESSING CHANGED,APPLIED Z LIU ON BUTTOCKS. ALL SAFETY MEASURES IN PLACE.
[2021-07-01 04:00] VITALS: BP 140/86
[2021-07-01] MEDS: BLOOD GLUCOSE MONITORING 1 DEV DEV FS SCH ×5 (06:00→23:52)
--- NOTE | 2021-07-01 06:00 | NUR ---
MIDODRINE HELD DUE TO INCREASED B/P 124/95. BIPAP IN PLACE. AL ORDERED PRECAUTIONS IN PLACE.
[2021-07-01] MEDS: MIDODRINE 5 MG TAB PO SCH ×2 (07:00→12:40)
--- NOTE | 2021-07-01 07:20 | NUR ---
RECEIVED PATIENT FROM PHOTO TECHNICIAN NURSE FOR CONTINUITY OF CARE. ON TELE MONITOR. PATIENT IS RESTING ON BIPAP, O2 SAT 99%, NO SIGN OF DISTRESS NOTED. RESPIRATORY EVEN AND UNLABORED. AROUSABLE TO VOICE. A/O X3. SKIN WARM, DRY, NON DIAPHORETIC. RIGHT UPPER ARM MIDLINE DOUBLE LUMENS, INTACT AND PATENT, IS INFUSING FLUID ORDER. RIGHT IJ CELESTINO CATH FOR HD. MENDEZ CATHETER IN PLACE, CLEAR YELLOW URINE NOTED. PATIENT DENIES ANY PAIN OR DISCOMFORT. ABLE TO MAKE NEED KNOWN. PLAN OF CARE DISCUSSED, PATIENT VERBALIZED UNDERSTANDING. PRECAUTION IN PLACE. CALL LIGHT WITHIN REACH. WILL CONTINUE TO MONITOR.
[2021-07-01 08:00] VITALS: BP 142/36
[2021-07-01] MEDS: QUEtiapine FUMARATE 25 MG TAB PO SCH ×2 (09:40→20:50)
--- NOTE | 2021-07-01 09:40 | NUR ---
SCHEDULE MEDICATIONS GIVEN WITH EDUCATION. PATIENT TOLERATED WELL. NO SIGN OF DISTRESS NOTED. PRECAUTION IN PLACE. CALL LIGHT WITHIN REACH. WILL CONTINUE TO MONITOR.
[2021-07-01] MEDS: ENOXAPARIN 30 MG/0.3 ML SYR SUBQ SCH (09:41)
[2021-07-01] MEDS: SKINTEGRITY HYDROGEL TP SCH (09:42)
--- NOTE | 2021-07-01 09:53 | NUR ---
PATIENT WANTED TO STAY ON BIPAP AND WILL IMFORM ME WHEN HE WANTS TO BE TAKEN OFF AND PUT ON 3L NC.
--- NOTE | 2021-07-01 10:19 | NUR ---
(07/01/21) RD FOLLOW UP COMPLETED PLEASE REFER TO NUTRITION PROGRESS NOTE UNDER CARE ACTIVITY FOR ESTIMATED NUTRITION NEEDS. RD RECOMMENDATIONS: 1. CONTINUE PUREE HONEY-THICK LIQUIDS TOLERATED + ENCOURAGE PO INTAKES >50% AT ALL MEALS TID. 2. CONTINUE GABRIEL TID PER PROTOCOL 3. D/C NEPRO D/T PT REFUSAL. 4. RD TO FOLLOW-UP 3-5 DAYS, MODERATE RISK KAREN AGRAWAL MS, RDN
--- NOTE | 2021-07-01 11:20 | NUR ---
PATIENT'S SON, MARIAN, AT BEDSIDE.
[2021-07-01 12:00] VITALS: BP 123/40
--- NOTE | 2021-07-01 12:40 | NUR ---
BS CHECK 114, NO INSULIN NEED TO COVER. SCHEDULE MEDICATION GIVEN WITH EDUCATION. PATIENT VERBALIZED UNDERSTANDING. PATIENT TOLERATED WELL. PRECAUTION IN PLACE. CALL LIGHT WITHIN REACH. WILL CONTINUE TO MONITOR.
--- NOTE | 2021-07-01 13:33 | NUR ---
ESTATE ATTORNEY AT BEDSIDE FOR PHYSICAL HYGIENE AND REPOSITION RECREATION ACTIVITIES COORDINATOR TO ATTEMPT HHN THERAPY AT A LATER TIME
[2021-07-01] MEDS: NON ADHERENT DRESSING TP SCH (13:43)
--- NOTE | 2021-07-01 15:50 | NUR ---
PATIENT IS RESTING IN BED, NO SIGN OF DISTRESS NOTED, O2 SAT 99% ON 3L OXYGEN VIA NC. PRECAUTION IN PLACE. CALL LIGHT WITHIN REACH. WILL CONTINUE TO MONITOR.
[2021-07-01 16:00] VITALS: BP 143/47
[2021-07-01 16:51] LABS: ANION GAP 13.6 (8-16); CARBON DIOXIDE 27.9 mmol/L (21-32); CHLORIDE 109 mmol/L (98-107); CREATININE 1.7 mg/dL (0.6-1.3); GLUCOSE 106 mg/dL (74-106); POTASSIUM 3.5 mmol/L (3.5-5.1); SODIUM SERUM 147 mmol/L (136-145); UREA NITROGEN, BLOOD 40 mg/dL (7-18)
[2021-07-01 16:57] LABS: ALBUMIN 2.8 g/dL (3.4-5.0); ANION GAP 12.5 (8-16); ASPARTATE AMINOTRANSFERASE 33 U/L (15-37); CHLORIDE 109 mmol/L (98-107); CREATININE 1.8 mg/dL (0.6-1.3); GLUCOSE 105 mg/dL (74-106); POTASSIUM 3.5 mmol/L (3.5-5.1); SODIUM SERUM 146 mmol/L (136-145); TOTAL BILIRUBIN 0.4 mg/dL (0.0-1.0); UREA NITROGEN, BLOOD 40 mg/dL (7-18)
--- NOTE | 2021-07-01 17:44 | NUR ---
SPOKE WITH DR NARANJO. KIERAN TO DC CELESTINO CATHETER. WILL FOLLOW ORDER.
--- NOTE | 2021-07-01 18:12 | NUR ---
RECEIVED CALL FROM CM IN [facility]. ALL QUESTIONS WERE ANSWERED. Addendum: 07/01/21 at 1906 by Osei Fitzgerald RN RN REQUEST BIPAP ORDER AND LADY TEST.
--- NOTE | 2021-07-01 18:30 | NUR ---
PATIENT IS HAVING DINNER. NURSE RESEARCH AT BEDSIDE TO FEED PT.
--- NOTE | 2021-07-01 18:32 | NUR ---
FAXED THE BIPAP ORDER TO [facility] REQUEST.
--- NOTE | 2021-07-01 19:20 | NUR ---
ENDORSED PATIENT TO SCRAP IRON CUTTER FOR CONTINUITY OF CARE. PATIENT IS STABLE.
--- NOTE | 2021-07-01 19:30 | NUR ---
RECEIVED BEDSIDE REPORT FROM DAY SHIFT RN FOR CONTINUITY OF CARE. PT IS AWAKE AAOX3. NC 3L. WATCHING TELEVISION. IVF RUNNING MD ORDER. PT IS NOT IN ANY DISTRESS. BREATHING RHYTHMIC AND UNLABORED. CALL LIGHT WITHIN REACH. ALL SAFETY MEASURES TAKEN. WILL CONTINUE TO MONITOR THE PT.
[2021-07-01 20:00] VITALS: BP 135/32
--- NOTE | 2021-07-01 20:54 | NUR ---
ALL DUE MEDS GIVEN. NO ADVERSE REACTION NOTED. WILL CONTINUE TO MONITOR THE PT.
--- NOTE | 2021-07-01 23:30 | NUR ---
PT IS ON BI-PAP FOR SLEEP. DC'D RIGHT IJ. APPLIED PRESSURE AND DRESSING. PT IS NOT BLEEDING. PT IS NOT IN ANY DISTRESS. BREATHING RHYTHMIC AND UNLABORED. WILL CONTINUE TO MONITOR THE PT.
[2021-07-02] VITALS (7 sets, daily range): BP systolic 106–149; BP diastolic 32–46
[2021-07-02] MEDS: Z-GUARD PASTE TP SCH ×2 (01:05→12:42)
[2021-07-02] MEDS: ALBUTEROL SULFATE/IPRATROPIU 3 ML SOL IH SCH ×4 (01:33→20:35)
--- NOTE | 2021-07-02 03:00 | NUR ---
PT IS SLEEPING IN BED COMFORTABLY. PT IS NOT IN ANY DISTRESS. BREATHING RHYTHMIC AND UNLABORED. PT SLEEPING WITH BI-PAP SATING 96%. CALL LIGHT WITHIN REACH. ALL SAFETY MEASURES TAKEN. WILL CONTINUE TO MONITOR THE PT.
[2021-07-02] MEDS: NACL 0.9% 500 ML IV SCH ×2 (03:45→06:01)
--- NOTE | 2021-07-02 05:30 | NUR ---
PT WAS CLEANED AND CHANGED. PT I NOT IN ANY DISTRESS AND HAS NO COMPLAINS AT THIS TIME. CALL LIGHT WITHIN REACH. ALL SAFETY MEASURES TAKEN. WILL CONTINUE TO MONITOR THE PT.
[2021-07-02] MEDS: BLOOD GLUCOSE MONITORING 1 DEV DEV FS SCH ×3 (05:59→17:28)
[2021-07-02 06:45] LABS: BASOPHILS % (AUTO) 0.4 % (0.0-2.0); EOSINOPHILS # (AUTO) 0.4 K/uL (0-0.4); EOSINOPHILS % (AUTO) 5.4 % (0.0-4.0); HEMATOCRIT 24.7 % (36-52); HEMOGLOBIN 8.3 g/dL (12.0-18.0); LYMPHOCYTES % (AUTO) 12.8 % (20.5-51.1); MEAN CORPUSCULAR HEMOGLOBIN 32 pg (27-31); MEAN CORPUSCULAR HGB CONC 34 g/dL (33-37); MEAN CORPUSCULAR VOLUME 94.6 fL (80-94); MONOCYTES # (AUTO) 0.8 K/uL (0.8-1.0); MONOCYTES % (AUTO) 10.7 % (1.7-9.3); NEUTROPHILS # (AUTO) 5.3 K/uL (1.8-7.7); NEUTROPHILS % (AUTO) 70.7 % (42.2-75.2); PLATELET COUNT (AUTO) 208 K/uL (140-450); RED BLOOD CELL COUNT(AUTO) 2.61 MIL/uL (4.20-6.10); RED CELL DISTRIBUTION WIDTH 14.3 % (11.6-13.7); WHITE BLOOD COUNT (AUTO) 7.5 K/uL (4.8-10.8)
--- NOTE | 2021-07-02 07:11 | NUR ---
ENDORSED PT TO DAY SHIFT RN FOR CONTINUITY OF CARE. PT IS STABLE.
[2021-07-02 07:24] LABS: ANION GAP 13.5 (8-16); CARBON DIOXIDE 27.3 mmol/L (21-32); CHLORIDE 110 mmol/L (98-107); CREATININE 1.6 mg/dL (0.6-1.3); GLUCOSE 127 mg/dL (74-106); POTASSIUM 3.8 mmol/L (3.5-5.1); SODIUM SERUM 147 mmol/L (136-145); UREA NITROGEN, BLOOD 37 mg/dL (7-18)
--- NOTE | 2021-07-02 07:30 | NUR ---
RECEIVED REPORT FROM IRON ERECTOR NURSE FOR CONTINUITY OF CARE, POC DISCUSSED. PT IS ASLEEP IN BED ON BIPAP MACHINE. DURING DAY PT IS ON 3LNC. PT IS ON TELE SHOWING SR. PT HAS A LEFT BKA AND SACRAL WOUND. PT HAS A RIGHT UPPER MIDLINE RUNNING 40CC NS. CELESTINO CATH DC'D ON 12TH PER MD ORDER. ALL SAFETY MEASURES IN PLACE, CALL LIGHT WITHIN REACH. WILL CONTINUE TO MONITOR.
[2021-07-02 08:03] LABS: MAGNESIUM 1.6 mg/dL (1.8-2.4)
[2021-07-02] MEDS: FUROSEMIDE 20 MG/2 ML VIAL IVP SCH (08:35)
[2021-07-02] MEDS: QUEtiapine FUMARATE 25 MG TAB PO SCH ×2 (08:37→20:32)
[2021-07-02] MEDS: SKINTEGRITY HYDROGEL TP SCH (08:39)
[2021-07-02] MEDS: ENOXAPARIN 30 MG/0.3 ML SYR SUBQ SCH (08:39)
--- NOTE | 2021-07-02 10:39 | NUR ---
DAYLIN MEDICATION ADMINISTERED PER MD ORDER, PT TOLERATED ADMINISTRATION WITH HONEY THICK LIQUID. PT ONLY ABLE TO MUMBLE A FEW WORDS. IV PATENT AND INTACT. PT ON 3L NC WITH CHEST RISING AND FALLING NO S/S OF ACUTE DISTRESS. ALL SAFETY MEASURES IN PLACE, CALL LIGHT WITHIN REACH. WILL CONTINUE TO MONITOR.
--- NOTE | 2021-07-02 12:30 | NUR ---
BLOOD GLUCOSE IS 111, NO INSULIN COVERAGE NEEDED PER SLIDING SCALE. PT HAS BEEN CLEANED AND REPOSITIONED. DRESSING CHANGE COMPLETED. NO BM NOTED. PT ON 3L NC. ALL SAFETY MEASURES IN PLACE, CALL LIGHT WITHIN REACH. WILL CONTINUE TO MONITOR.
[2021-07-02] MEDS: NON ADHERENT DRESSING TP SCH (12:42)
--- NOTE | 2021-07-02 17:20 | NUR ---
BLOOD GLUCOSE IS 107, NO INSULIN COVERAGE NEEDED PER SLIDING SCALE. PT STABLE
--- NOTE | 2021-07-02 18:21 | NUR ---
ALL NEEDS HAVE BEEN MET THROUGHOUT SHIFT. ALL QUESTIONS REGARD POC HAS BEEN ANSWERED. PT CARE WILL BE ENDORSED TO REPAIRER WOOD FURNITURE. ALL SAFETY MEASURES AND CALL LIGHT IN PLACE.
[2021-07-02] MEDS ORDERED: MAG SULF 2000 MG/WATER PREMIX 50 ML IV ONE (18:40)
--- NOTE | 2021-07-02 18:52 | NUR ---
DAYLIN MAG ADMINISTERED PER MD ORDER
--- NOTE | 2021-07-02 19:17 | NUR ---
RECEIVED BEDSIDE REPORT FROM DAY SHIFT RN FOR CONTINUITY OF CARE. PT IS SLEEPING COMFORTABLY. NC 3L SATING 97%. IVF RUNNING MD ORDER. PT IS NOT IN ANY DISTRESS. BREATHING RHYTHMIC AND UNLABORED. CALL LIGHT WITHIN REACH. ALL SAFETY MEASURES TAKEN. WILL CONTINUE TO MONITOR THE PT.
--- NOTE | 2021-07-02 20:34 | NUR ---
ALL DUE MEDS GIVEN. NO ADVERSE REACTION NOTED. WILL CONTINUE TO OBSERVE THE PT.
[2021-07-03] VITALS: BP 134/41
--- NOTE | 2021-07-03 00:20 | NUR ---
PLACED PT ON BIPAP FOR SLEEP AT THIS TIME.
[2021-07-03] MEDS: ALBUTEROL SULFATE/IPRATROPIU 3 ML SOL IH SCH ×4 (00:33→19:18)
[2021-07-03] MEDS: Z-GUARD PASTE TP SCH ×2 (01:47→13:23)
[2021-07-03 04:00] VITALS: BP 124/35
[2021-07-03] MEDS: NACL 0.9% 500 ML IV SCH ×2 (04:45→17:21)
[2021-07-03] MEDS: BLOOD GLUCOSE MONITORING 1 DEV DEV FS SCH ×4 (06:19→17:21)
[2021-07-03 07:05] LABS: BASOPHILS % (AUTO) 0.7 % (0.0-2.0); EOSINOPHILS # (AUTO) 0.4 K/uL (0-0.4); EOSINOPHILS % (AUTO) 6.1 % (0.0-4.0); HEMATOCRIT 25.9 % (36-52); HEMOGLOBIN 8.6 g/dL (12.0-18.0); LYMPHOCYTES # (AUTO) 0.9 K/uL (2.0-11.5); LYMPHOCYTES % (AUTO) 13.8 % (20.5-51.1); MEAN CORPUSCULAR HEMOGLOBIN 32 pg (27-31); MEAN CORPUSCULAR HGB CONC 33 g/dL (33-37); MEAN CORPUSCULAR VOLUME 95.2 fL (80-94); MONOCYTES # (AUTO) 0.6 K/uL (0.8-1.0); MONOCYTES % (AUTO) 9.4 % (1.7-9.3); NEUTROPHILS # (AUTO) 4.6 K/uL (1.8-7.7); PLATELET COUNT (AUTO) 202 K/uL (140-450); RED BLOOD CELL COUNT(AUTO) 2.72 MIL/uL (4.20-6.10); RED CELL DISTRIBUTION WIDTH 14.2 % (11.6-13.7); WHITE BLOOD COUNT (AUTO) 6.6 K/uL (4.8-10.8)
--- NOTE | 2021-07-03 07:08 | NUR ---
ENDORSED PT TO DAY SHIFT RN FOR CONTINUITY OF CARE. PT IS STABLE.
--- NOTE | 2021-07-03 07:30 | NUR ---
REPORT RECEIVED FROM NURSE HEALTHCARE MANAGER RN, PT AOX3, VSS, SLEEPING IN BED, PLACED ON 3LNC, SAFETY MEASURES MAINTAINED, CALL LIGHT WITHIN REACH, WILL CONTINUE TO MONITOR
[2021-07-03 08:00] VITALS: BP 128/42
[2021-07-03] MEDS: FUROSEMIDE 20 MG/2 ML VIAL IVP SCH ×2 (08:14→21:34)
[2021-07-03] MEDS: QUEtiapine FUMARATE 25 MG TAB PO SCH ×2 (08:14→21:35)
[2021-07-03 08:32] LABS: ANION GAP 13.9 (8-16); CARBON DIOXIDE 27.7 mmol/L (21-32); CHLORIDE 110 mmol/L (98-107); CREATININE 1.7 mg/dL (0.6-1.3); GLUCOSE 116 mg/dL (74-106); POTASSIUM 3.6 mmol/L (3.5-5.1); SODIUM SERUM 148 mmol/L (136-145); UREA NITROGEN, BLOOD 34 mg/dL (7-18)
[2021-07-03 08:35] LABS: MAGNESIUM 2.1 mg/dL (1.8-2.4); PHOSPHORUS 3.2 mg/dL (2.5-4.9)
[2021-07-03] MEDS: SKINTEGRITY HYDROGEL TP SCH (09:05)
[2021-07-03] MEDS: ENOXAPARIN 30 MG/0.3 ML SYR SUBQ SCH (09:41)
[2021-07-03 12:00] VITALS: BP 100/58
--- NOTE | 2021-07-03 13:22 | NUR ---
PATIENT PROVIDED BED BATH, REPOSITIONED, EATING LUNCH, VSS, 3LNC, FAMILY AT BEDSIDE
[2021-07-03] MEDS: NON ADHERENT DRESSING TP SCH (13:23)
--- NOTE | 2021-07-03 13:59 | NUR ---
SPOKE TO ROBER WITH [employer] [facility] - [phone] - STATED TO CALL COMPANY WHEN PT IS BEING DISCHARGED SO THEY CAN DROP OFF BIPAP EQUIPMENT FOR PT.
[2021-07-03 16:00] VITALS: BP 127/50
--- NOTE | 2021-07-03 17:41 | NUR ---
[facility] DROPPED OFF BEDSIDE BIPAP
--- NOTE | 2021-07-03 19:25 | NUR ---
RECEIVED BEDSIDE REPORT FROM DAY SHIFT RN FOR CONTINUITY OF CARE. PT IS SLEEPING COMFORTABLY. PT HAS NC 3L. IVF RUNNING MD ORDER. FOOD BY BEDSIDE. CALL LIGHT WITHIN REACH. ALL SAFETY MEASURES TAKEN. WILL CONTINUE TO MONITOR THE PT.
[2021-07-03 20:00] VITALS: BP 125/43
--- NOTE | 2021-07-03 21:40 | NUR ---
ALL DUE MEDS GIVEN. NO ADVERSE REACTION NOTED. WILL CONTINUE TO MONITOR THE PT.
[2021-07-04] VITALS: BP 139/48
--- NOTE | 2021-07-04 00:59 | NUR ---
PT IS SLEEPING COMFORTABLY IN BED. PT IS NOT IN ANY DISTRESS. PT HAS NC 3L SATING 96%. PT REFUSED BI-PAP FOR THE NIGHT. CALL LIGHT WITHIN REACH. ALL SAFETY MEASURES TAKEN. WILL CONTINUE TO MONITOR THE PT.
[2021-07-04] MEDS: Z-GUARD PASTE TP SCH ×2 (01:04→13:12)
--- NOTE | 2021-07-04 02:50 | NUR ---
PT IS SLEEPING COMFORTABLY IN BED. PT IS NOT IN ANY DISTRESS. BREATHING RHYTHMIC AND UNLABORED SATING 98%. IVF RUNNING MD ORDER. CALL LIGHT WITHIN REACH. ALL SAFETY MEASURES TAKEN. WILL CONTINUE TO MONITOR THE PT.
[2021-07-04 04:00] VITALS: BP 133/42
--- NOTE | 2021-07-04 05:35 | NUR ---
PT WAS CLEANED AND CHANGED. PT IS NOT IN ANY DISTRESS. PT IS ON NC 3L SATING 97%. BREATHING RHYTHMIC AND UNLABORED. CALL LIGHT WITHIN REACH. ALL SAFETY MEASURES TAKEN. WILL CONTINUE TO MONITOR THE PT.
[2021-07-04] MEDS: NACL 0.9% 500 ML IV SCH ×2 (05:45→18:03)
[2021-07-04] MEDS: BLOOD GLUCOSE MONITORING 1 DEV DEV FS SCH ×4 (06:42→18:02)
[2021-07-04 07:04] LABS: ANION GAP 11.5 (8-16); CARBON DIOXIDE 29.7 mmol/L (21-32); CHLORIDE 108 mmol/L (98-107); CREATININE 1.7 mg/dL (0.6-1.3); GLUCOSE 101 mg/dL (74-106); MAGNESIUM 1.7 mg/dL (1.8-2.4); PHOSPHORUS 3.1 mg/dL (2.5-4.9); POTASSIUM 3.2 mmol/L (3.5-5.1); SODIUM SERUM 146 mmol/L (136-145); UREA NITROGEN, BLOOD 33 mg/dL (7-18)
[2021-07-04 07:10] LABS: BASOPHILS # (AUTO) 0.1 K/uL (0.00-0.22); BASOPHILS % (AUTO) 0.9 % (0.0-2.0); EOSINOPHILS # (AUTO) 0.5 K/uL (0-0.4); EOSINOPHILS % (AUTO) 7.6 % (0.0-4.0); HEMATOCRIT 25.5 % (36-52); HEMOGLOBIN 8.5 g/dL (12.0-18.0); LYMPHOCYTES % (AUTO) 15.7 % (20.5-51.1); MEAN CORPUSCULAR HEMOGLOBIN 32 pg (27-31); MEAN CORPUSCULAR HGB CONC 33 g/dL (33-37); MEAN CORPUSCULAR VOLUME 95.3 fL (80-94); MONOCYTES # (AUTO) 0.5 K/uL (0.8-1.0); MONOCYTES % (AUTO) 8.7 % (1.7-9.3); NEUTROPHILS # (AUTO) 4.2 K/uL (1.8-7.7); NEUTROPHILS % (AUTO) 67.1 % (42.2-75.2); PLATELET COUNT (AUTO) 180 K/uL (140-450); RED BLOOD CELL COUNT(AUTO) 2.68 MIL/uL (4.20-6.10); RED CELL DISTRIBUTION WIDTH 14.4 % (11.6-13.7); WHITE BLOOD COUNT (AUTO) 6.3 K/uL (4.8-10.8)
--- NOTE | 2021-07-04 07:18 | NUR ---
ENDORSED PT TO DAY SHIFT RN FOR CONTINUITY OF CARE. PT IS STABLE.
--- NOTE | 2021-07-04 07:19 | NUR ---
RECEIVED PATIENT FROM FUSE CUP EXPANDER NURSE FOR CONTINUITY OF CARE. PATIENT IS ON TELE MONITOR. A/A/O X3 WITH EPISODE OF CONFUSION. RESPIRATORY EVEN AND UNLABORED, ON 3L OXYGEN VIA NC. NO SIGN OF DISTRESS NOTED. SKIN WARM, DRY, NON DIAPHORETIC. RIGHT UPPER ARM MIDLINE, INTACT AND PATENT, IS INFUSING FLUID ORDER. MENDEZ IN PLACE, CLEAR YELLOW URINE NOTED. PATIENT DENIES ANY PAIN OR DISCOMFORT. ABLE TO MAKE NEED KNOWN. PLAN OF CARE DISCUSSED, PATIENT VERBALIZED UNDERSTANDING. PRECAUTION IN PLACE. CALL LIGHT WITHIN REACH. WILL CONTINUE TO MONITOR.
--- NOTE | 2021-07-04 07:32 | NUR ---
PHYSICAL THERAPY CO-SIGN The Physical Therapy Progress Notes documented by Analytics Analyst have been reviewed. Reviewed/Co-Signed by: Opal Castillo Documentation Done by: ZENA ESCOBAR PTA Addendum: 07/04/21 at 0732 by Opal Castillo PT Amended: Links added.
[2021-07-04] MEDS: ALBUTEROL SULFATE/IPRATROPIU 3 ML SOL IH SCH ×4 (07:37→19:38)
[2021-07-04 08:00] VITALS: BP 104/40
[2021-07-04] MEDS ORDERED: QUET25TA46 PO (08:18)
[2021-07-04] MEDS ORDERED: ALBU3SOL83 IH (08:18)
[2021-07-04] MEDS: QUEtiapine FUMARATE 25 MG TAB PO SCH ×2 (08:29→20:37)
[2021-07-04] MEDS: ENOXAPARIN 30 MG/0.3 ML SYR SUBQ SCH (08:30)
[2021-07-04] MEDS: FUROSEMIDE 20 MG/2 ML VIAL IVP SCH ×2 (08:34→20:41)
--- NOTE | 2021-07-04 08:36 | NUR ---
SCHEDULE MEDICATION GIVEN WITH EDUCATION, HOLD LASIX 20MG IVP DUE BP 104/40, HR 81. PATIENT TOLERATED WELL. PRECAUTION IN PLACE. CALL LIGHT WITHIN REACH. WILL CONTINUE TO MONITOR.
[2021-07-04] MEDS: SKINTEGRITY HYDROGEL TP SCH (09:00)
[2021-07-04] MEDS ORDERED: MAG SULF 2000 MG/WATER PREMIX 50 ML IV SCH (11:00)
[2021-07-04] MEDS ORDERED: POTASSIUM CHLORIDE 10 MEQ TABER PO SCH (11:30)
--- NOTE | 2021-07-04 11:32 | NUR ---
BS CHECK 109, NO INSULIN NEED TO COVER, SCHEDULE MEDICATIONS GIVEN WITH EDUCATION. PATIENT TOLERATED WELL. NO SIGN OF DISTRESS NOTED. PRECAUTION IN PLACE. CALL LIGHT WITHIN REACH. WILL CONTINUE TO MONITOR.
[2021-07-04 12:00] VITALS: BP 117/51
[2021-07-04] MEDS: NON ADHERENT DRESSING TP SCH (13:11)
--- NOTE | 2021-07-04 15:50 | NUR ---
PATIENT IS RESTING IN BED, NO SIGN OF DISTRESS NOTED. PRECAUTION IN PLACE. CALL LIGHT WITHIN REACH. WILL CONTINUE TO MONITOR.
[2021-07-04 16:00] VITALS: BP 113/62
--- NOTE | 2021-07-04 18:03 | NUR ---
BS CHECK 121, NO INSULIN NEED TO COVER. PATIENT IS RESTING IN BED. NO SIGN OF DISTRESS NOTED. PRECAUTION IN PLACE. CALL LIGHT WITHIN REACH. WILL CONTINUE TO MONITOR.
--- NOTE | 2021-07-04 19:15 | NUR ---
ENDORSED PATIENT TO HAUNTED HISTORY TOUR GUIDE NURSE FOR CONTINUITY OF CARE. PATIENT IS STABLE.
[2021-07-04 20:00] VITALS: BP 140/45
--- NOTE | 2021-07-04 20:00 | NUR ---
RECEIVED BEDSIDE REPORT FROM DAY RN REGARDING THE PT FOR CONTINUITY OF CARE. PT LAYING IN BED WATCHING TV. PT DENIES CHEST PAIN PAIN, SOB ,PALPITATIONS AND DIZZINESS. NO SIGN AND SYMPTOMS OF DISTRESS NOTED. DISCUSSED POC WITH THE AND VERBALIZED UNDERSTANDING. NO COMPLAIN OF PAIN AT THIS TIME. PT VERBALIZED UNDERSTANDING WITH THE POC. CALL LIGHT WITHIN REACH. WILL CONTINUE POC AND MONITORING.
--- NOTE | 2021-07-04 22:00 | NUR ---
ALL DUE MEDICATIONS GIVEN ORDERED. NO ADVERSE DRUG REACTION NOTED.NO COMPLAIN FROM THE PATIENT .WILL CONTINUE OBSERVATION.
[2021-07-05] VITALS: BP 101/52
--- NOTE | 2021-07-05 | NUR ---
PT VITAL SIGNS STABLE, AFEBRILE, SATING 97% ON 3L/NC. SR WITH BBB ON PHYSICIAN COMPENSATION ANALYST, HR-71. WILL CONTINUE TO OBSERVE THE PATIENT.
[2021-07-05] MEDS: ALBUTEROL SULFATE/IPRATROPIU 3 ML SOL IH SCH ×4 (01:00→19:24)
[2021-07-05] MEDS: Z-GUARD PASTE TP SCH ×2 (01:19→11:17)
--- NOTE | 2021-07-05 02:00 | NUR ---
PATIENT ASLEEP AT THIS TIME. VISIBLE CHEST RISE AND FALL NOTED. WILL CONTINUE OBSERVATION.
[2021-07-05 04:00] VITALS: BP 129/41
[2021-07-05] MEDS: NACL 0.9% 500 ML IV SCH (04:58)
[2021-07-05] MEDS: BLOOD GLUCOSE MONITORING 1 DEV DEV FS SCH ×4 (06:00→18:25)
--- NOTE | 2021-07-05 07:09 | NUR ---
PATIENT STABLE AND NOT ON ANY DISTRESS. ALL NEEDS ATTENDED. WILL ENDORSE THE PATIENT TO THE ONCOMING RN FOR CONTINUITY OF CARE.
--- NOTE | 2021-07-05 07:20 | NUR ---
RECEIVED BEDSIDE REPORT FROM HOTEL MANAGER NURSE FOR CONTINUITY OF CARE. BREATHING IS EVEN AND UNLABORED. NO SIGNS OF DISTRESS NOTED. ON 3L OF O2 NC . PT IS STABLE.
[2021-07-05 07:33] LABS: BASOPHILS # (AUTO) 0.1 K/uL (0.00-0.22); BASOPHILS % (AUTO) 0.8 % (0.0-2.0); EOSINOPHILS # (AUTO) 0.5 K/uL (0-0.4); EOSINOPHILS % (AUTO) 6.6 % (0.0-4.0); HEMOGLOBIN 8.7 g/dL (12.0-18.0); LYMPHOCYTES # (AUTO) 0.8 K/uL (2.0-11.5); LYMPHOCYTES % (AUTO) 10.2 % (20.5-51.1); MEAN CORPUSCULAR HEMOGLOBIN 32 pg (27-31); MEAN CORPUSCULAR HGB CONC 33 g/dL (33-37); MEAN CORPUSCULAR VOLUME 95.3 fL (80-94); MONOCYTES # (AUTO) 0.6 K/uL (0.8-1.0); MONOCYTES % (AUTO) 8.5 % (1.7-9.3); NEUTROPHILS # (AUTO) 5.4 K/uL (1.8-7.7); NEUTROPHILS % (AUTO) 73.9 % (42.2-75.2); PLATELET COUNT (AUTO) 197 K/uL (140-450); RED BLOOD CELL COUNT(AUTO) 2.73 MIL/uL (4.20-6.10); RED CELL DISTRIBUTION WIDTH 14.6 % (11.6-13.7); WHITE BLOOD COUNT (AUTO) 7.3 K/uL (4.8-10.8)
[2021-07-05 07:40] LABS: MAGNESIUM 1.9 mg/dL (1.8-2.4); PHOSPHORUS 3.1 mg/dL (2.5-4.9)
[2021-07-05 07:44] LABS: ANION GAP 12.3 (8-16); CARBON DIOXIDE 29.5 mmol/L (21-32); CHLORIDE 109 mmol/L (98-107); CREATININE 1.5 mg/dL (0.6-1.3); GLUCOSE 114 mg/dL (74-106); POTASSIUM 3.8 mmol/L (3.5-5.1); SODIUM SERUM 147 mmol/L (136-145); UREA NITROGEN, BLOOD 28 mg/dL (7-18)
[2021-07-05 08:00] VITALS: BP 119/55
[2021-07-05] MEDS: ENOXAPARIN 30 MG/0.3 ML SYR SUBQ SCH (09:40)
[2021-07-05] MEDS: FUROSEMIDE 20 MG/2 ML VIAL IVP SCH ×2 (09:41→20:43)
[2021-07-05] MEDS: QUEtiapine FUMARATE 25 MG TAB PO SCH ×2 (09:41→20:42)
[2021-07-05] MEDS: SKINTEGRITY HYDROGEL TP SCH (09:41)
[2021-07-05] MEDS: NON ADHERENT DRESSING TP SCH (11:16)
--- NOTE | 2021-07-05 11:40 | NUR ---
WOUND CARE RE-EVALUATION NOTE: SKIN ASSESSMENT DONE WITH PRIMARY RN, NO NEW SKIN ALTERATION NOTICE. INTERTRIGO LOWER ABDOMINAL FOLDS, AND GROINS MULTIPLE EROSIONS IMPROVING, AND ALL PRESSURE INJURIES RESURFACE WITH HEALED SCAR TISSUE. AT BED SIDE AND WITNESS THE HEALED WOUNDS. POC DISCUSSED WITH AND PRIMARY RN. WILL CONTINUE USING BARRIER CREAM TO SACROCOCCYX, ISCHIUMS AND BUTTOCKS PREVENTION. INTEGUMENTARY: -INTERTRIGO LOWER ABDOMINAL FOLDS, AND GROINS MULTIPLE EROSIONS RESOLVED WITH MOIST SKIN, CONTINUE TO IMPROVE -SEVERE MOISTURE ASSOCIATED DERMATITIS RESOLVED -RIGHT BUTTOCK PRESSURE INJURY WITH RESURFACE HEALED SCAR TISSUE -LEFT BUTTOCK PRESSURE INJURY WITH RESURFACE HEALED SCAR TISSUE - SACRALCOCCYX PRESSURE INJURY WITH RESURFACE HEALED SCAR TISSUE - RIGHT ISCHIUM PRESSURE INJURY WITH RESURFACE HEALED SCAR TISSUE - LEFT ISCHIUM PRESSURE INJURY WITH RESURFACE HEALED SCAR TISSUE
[2021-07-05 12:00] VITALS: BP 99/48
--- NOTE | 2021-07-05 12:00 | NUR ---
MD STOPPED IV FLUIDS, BUT WILL CONTINUE LASIX. BREATHING IS EVEN AND UNLABORED. NO SIGNS OF DISTRESS NOTED. ON 3L OF O2 NC . PT IS STABLE.
[2021-07-05 16:00] VITALS: BP 127/47
--- NOTE | 2021-07-05 19:45 | NUR ---
ENDORSED TO GAS SCRUBBER OPERATOR NURSE FOR CONTINUITY OF CARE. POC DISCUSSED.
[2021-07-05 20:00] VITALS: BP 116/43
--- NOTE | 2021-07-05 20:00 | NUR ---
RECEIVED BEDSIDE REPORT FROM DAY RN REGARDING THE PT FOR CONTINUITY OF CARE. PT LAYING ASLEEP AND EASY TO AROUSE. PT DENIES CHEST PAIN PAIN, SOB ,PALPITATIONS AND DIZZINESS. NO SIGN AND SYMPTOMS OF DISTRESS NOTED. DISCUSSED POC WITH THE AND VERBALIZED UNDERSTANDING. NO COMPLAIN OF PAIN AT THIS TIME. PT VERBALIZED UNDERSTANDING WITH THE POC. CALL LIGHT WITHIN REACH. WILL CONTINUE POC AND MONITORING.
--- NOTE | 2021-07-05 22:00 | NUR ---
ALL DUE MEDICATIONS GIVEN ORDERED. NO ADVERSE DRUG REACTION NOTED.NO COMPLAIN FROM THE PATIENT .WILL CONTINUE OBSERVATION.
--- NOTE | 2021-07-05 22:13 | NUR ---
2200 PLACED PT ON BIPAP. RN AWARE
[2021-07-06] VITALS: BP 133/42
--- NOTE | 2021-07-06 | NUR ---
VITAL SIGNS STABLE, AFEBRILE, SATING 97% ON BIPAP SETTING. NO COMPLAIN OF PAIN AT THIS TIME. WILL CONTINUE TO OBSERVE.
[2021-07-06] MEDS: Z-GUARD PASTE TP SCH ×2 (01:07→13:05)
[2021-07-06] MEDS: ALBUTEROL SULFATE/IPRATROPIU 3 ML SOL IH SCH ×3 (01:08→13:40)
--- NOTE | 2021-07-06 02:30 | NUR ---
PATIENT ASLEEP AT THIS TIME. VISIBLE CHEST RISE AND FALL NOTED. WILL CONTINUE OBSERVATION.
[2021-07-06 04:00] VITALS: BP 131/34
--- NOTE | 2021-07-06 04:00 | NUR ---
PT VITAL SIGN STABLE, AFEBRILE, SATING 97% ON BIPAP SETTING. NO COMPLAIN OF PAIN AT THIS TIME. SR WITH BBB ON BOX BLANK MACHINE FEEDER, HR-76. WILL CONTINUE TO OBSERVE.
[2021-07-06] MEDS: BLOOD GLUCOSE MONITORING 1 DEV DEV FS SCH ×4 (05:59→18:00)
--- NOTE | 2021-07-06 07:02 | NUR ---
PATIENT STABLE AND NOT ON ANY DISTRESS. ALL NEEDS ATTENDED. WILL ENDORSE THE PATIENT TO THE ONCOMING RN FOR CONTINUITY OF CARE.
--- NOTE | 2021-07-06 07:35 | NUR ---
ENDORSED PT TO DAY RN FOR CONTINUITY OF CARE. PT STABLE. SIGNING OFF.
--- NOTE | 2021-07-06 07:36 | NUR ---
RECEIVED BEDSIDE REPORT FROM CLINICAL SUPPORT NURSE NURSE FOR CONTINUITY OF CARE. BREATHING IS EVEN AND UNLABORED. NO SIGNS OF DISTRESS NOTED. ON 3L OF O2 NC . PT IS STABLE.
[2021-07-06 07:46] LABS: MAGNESIUM 1.8 mg/dL (1.8-2.4); PHOSPHORUS 3.1 mg/dL (2.5-4.9)
[2021-07-06 07:50] LABS: BASOPHILS # (AUTO) 0.1 K/uL (0.00-0.22); BASOPHILS % (AUTO) 0.9 % (0.0-2.0); EOSINOPHILS # (AUTO) 0.4 K/uL (0-0.4); EOSINOPHILS % (AUTO) 5.7 % (0.0-4.0); HEMATOCRIT 25.8 % (36-52); HEMOGLOBIN 8.7 g/dL (12.0-18.0); LYMPHOCYTES # (AUTO) 0.9 K/uL (2.0-11.5); LYMPHOCYTES % (AUTO) 14.5 % (20.5-51.1); MEAN CORPUSCULAR HEMOGLOBIN 32 pg (27-31); MEAN CORPUSCULAR HGB CONC 34 g/dL (33-37); MEAN CORPUSCULAR VOLUME 95.1 fL (80-94); MONOCYTES # (AUTO) 0.6 K/uL (0.8-1.0); MONOCYTES % (AUTO) 9.8 % (1.7-9.3); NEUTROPHILS # (AUTO) 4.4 K/uL (1.8-7.7); NEUTROPHILS % (AUTO) 69.1 % (42.2-75.2); PLATELET COUNT (AUTO) 210 K/uL (140-450); RED BLOOD CELL COUNT(AUTO) 2.72 MIL/uL (4.20-6.10); RED CELL DISTRIBUTION WIDTH 14.7 % (11.6-13.7); WHITE BLOOD COUNT (AUTO) 6.4 K/uL (4.8-10.8)
[2021-07-06 08:00] VITALS: BP 111/54
[2021-07-06 08:03] LABS: ANION GAP 13.5 (8-16); CARBON DIOXIDE 28.2 mmol/L (21-32); CHLORIDE 108 mmol/L (98-107); CREATININE 1.7 mg/dL (0.6-1.3); GLUCOSE 110 mg/dL (74-106); POTASSIUM 3.7 mmol/L (3.5-5.1); SODIUM SERUM 146 mmol/L (136-145); UREA NITROGEN, BLOOD 29 mg/dL (7-18)
[2021-07-06] MEDS: ENOXAPARIN 30 MG/0.3 ML SYR SUBQ SCH (09:00)
[2021-07-06] MEDS: SKINTEGRITY HYDROGEL TP SCH (09:35)
[2021-07-06] MEDS: QUEtiapine FUMARATE 25 MG TAB PO SCH (09:35)
[2021-07-06] MEDS: FUROSEMIDE 20 MG/2 ML VIAL IVP SCH (09:35)
[2021-07-06 12:00] VITALS: BP 106/51
[2021-07-06] MEDS ORDERED: MAG SULF 2000 MG/WATER PREMIX 50 ML IV SCH (13:00)
[2021-07-06] MEDS: NON ADHERENT DRESSING TP SCH (13:04)
--- NOTE | 2021-07-06 15:29 | NUR ---
07/06/21 RD FOLLOW UP COMPLETED PLEASE REFER TO NUTRITION ASSESSMENT UNDER CARE ACTIVITY FOR ESTIMATED NUTRITIONAL NEEDS. 1. CONTINUE PUREE HONEY-THICK LIQUIDS TOLERATED + ENCOURAGE PO INTAKES >50% AT ALL MEALS TID 2. CONTINUE GABRIEL TID PER PROTOCOL 3. RECOMMEND REGLAN FOR GI MOTILITY 4. RD TO FOLLOW-UP 3-5 DAYS, MODERATE RISK BETTY MCCLURE RD
[2021-07-06 15:59] VITALS: BP 106/61
--- NOTE | 2021-07-06 16:00 | NUR ---
DC TRANSFER TO [facility]. PT MIDLINE PULLED OUT AND INTACT.BREATHING IS EVEN AND UNLABORED. NO SIGNS OF DISTRESS NOTED. ON 3L OF O2 NC . PT IS STABLE.PT IS STABLE.
--- NOTE | 2021-07-07 05:44 | NUR ---
PHYSICAL THERAPY CO-SIGN The Physical Therapy Progress Notes documented by Boiler Washer have been reviewed. Reviewed/Co-Signed by: Opal Castillo Documentation Done by: ZENA ESCOBAR PTA Addendum: 07/07/21 at 0544 by Opal Castillo PT Amended: Links added.
[2021-07-07] MEDS ORDERED: FUROSEMIDE 20 MG/2 ML VIAL IVP SCH (09:00)
== END 2021-07-06 19:03 | DRG 870 ==
LOC: MED 10:39 → MTU 17:16 → MIC 06-02 23:55 → MTU 06-29 06:48
PROVIDERS: ADMIT Internal Medicine; ATTEND Internal Medicine
PROC: 5A09457 Assistance with Respiratory Ventilation, 24-96 Consecutive Hours, Continuous Positive Airway Pressure (ICD-10-PCS; principal; 2021-06-03)
PROC: 5A1D70Z Performance of Urinary Filtration, Intermittent, Less than 6 Hours Per Day (ICD-10-PCS; 2021-06-04)
PROC: 02HV33Z Insertion of Infusion Device into Superior Vena Cava, Percutaneous Approach (ICD-10-PCS; 2021-06-04)
PROC: B548ZZA Ultrasonography of Superior Vena Cava, Guidance (ICD-10-PCS; 2021-06-04)
PROC: 5A09357 Assistance with Respiratory Ventilation, Less than 24 Consecutive Hours, Continuous Positive Airway Pressure (ICD-10-PCS; 2021-06-05)
PROC: 5A1D70Z Performance of Urinary Filtration, Intermittent, Less than 6 Hours Per Day (ICD-10-PCS; 2021-06-05)
PROC: 5A09357 Assistance with Respiratory Ventilation, Less than 24 Consecutive Hours, Continuous Positive Airway Pressure (ICD-10-PCS; 2021-06-06)
PROC: 5A09457 Assistance with Respiratory Ventilation, 24-96 Consecutive Hours, Continuous Positive Airway Pressure (ICD-10-PCS; 2021-06-07)
PROC: 5A1955Z Respiratory Ventilation, Greater than 96 Consecutive Hours (ICD-10-PCS; 2021-06-09)
PROC: 0BH17EZ Insertion of Endotracheal Airway into Trachea, Via Natural or Artificial Opening (ICD-10-PCS; 2021-06-09)
PROC: 5A1D70Z Performance of Urinary Filtration, Intermittent, Less than 6 Hours Per Day (ICD-10-PCS; 2021-06-13)
PROC: 5A1D70Z Performance of Urinary Filtration, Intermittent, Less than 6 Hours Per Day (ICD-10-PCS; 2021-06-15)
PROC: 5A1D70Z Performance of Urinary Filtration, Intermittent, Less than 6 Hours Per Day (ICD-10-PCS; 2021-06-17)
PROC: 5A1D70Z Performance of Urinary Filtration, Intermittent, Less than 6 Hours Per Day (ICD-10-PCS; 2021-06-19)
PROC: 5A1D70Z Performance of Urinary Filtration, Intermittent, Less than 6 Hours Per Day (ICD-10-PCS; 2021-06-21)
PROC: 5A09357 Assistance with Respiratory Ventilation, Less than 24 Consecutive Hours, Continuous Positive Airway Pressure (ICD-10-PCS; 2021-06-22)
PROC: 5A1D70Z Performance of Urinary Filtration, Intermittent, Less than 6 Hours Per Day (ICD-10-PCS; 2021-06-23)
PROC: 5A09357 Assistance with Respiratory Ventilation, Less than 24 Consecutive Hours, Continuous Positive Airway Pressure (ICD-10-PCS; 2021-06-24)
PROC: 5A09357 Assistance with Respiratory Ventilation, Less than 24 Consecutive Hours, Continuous Positive Airway Pressure (ICD-10-PCS; 2021-06-25)
PROC: 5A09357 Assistance with Respiratory Ventilation, Less than 24 Consecutive Hours, Continuous Positive Airway Pressure (ICD-10-PCS; 2021-06-26)
PROC: 5A09357 Assistance with Respiratory Ventilation, Less than 24 Consecutive Hours, Continuous Positive Airway Pressure (ICD-10-PCS; 2021-06-27)
PROC: 5A09357 Assistance with Respiratory Ventilation, Less than 24 Consecutive Hours, Continuous Positive Airway Pressure (ICD-10-PCS; 2021-06-28)
PROC: 5A09357 Assistance with Respiratory Ventilation, Less than 24 Consecutive Hours, Continuous Positive Airway Pressure (ICD-10-PCS; 2021-06-29)
PROC: 5A09357 Assistance with Respiratory Ventilation, Less than 24 Consecutive Hours, Continuous Positive Airway Pressure (ICD-10-PCS; 2021-06-30)
PROC: 5A09357 Assistance with Respiratory Ventilation, Less than 24 Consecutive Hours, Continuous Positive Airway Pressure (ICD-10-PCS; 2021-07-01)
PROC: 5A09357 Assistance with Respiratory Ventilation, Less than 24 Consecutive Hours, Continuous Positive Airway Pressure (ICD-10-PCS; 2021-07-02)
PROC: 5A09357 Assistance with Respiratory Ventilation, Less than 24 Consecutive Hours, Continuous Positive Airway Pressure (ICD-10-PCS; 2021-07-03)
PROC: 5A09357 Assistance with Respiratory Ventilation, Less than 24 Consecutive Hours, Continuous Positive Airway Pressure (ICD-10-PCS; 2021-07-04)
PROC: 5A09357 Assistance with Respiratory Ventilation, Less than 24 Consecutive Hours, Continuous Positive Airway Pressure (ICD-10-PCS; 2021-07-06)
DX: A41.50 Gram-negative sepsis, unspecified (principal); J15.0 Pneumonia due to Klebsiella pneumoniae; N17.0 Acute kidney failure with tubular necrosis; G93.41 Metabolic encephalopathy; R65.21 Severe sepsis with septic shock; J96.01 Acute respiratory failure with hypoxia; I50.33 Acute on chronic diastolic (congestive) heart failure; J96.02 Acute respiratory failure with hypercapnia; I13.0 Hypertensive heart and chronic kidney disease with heart failure and stage 1 through stage 4 chronic kidney disease, or unspecified chronic kidney disease; N30.00 Acute cystitis without hematuria; E87.0 Hyperosmolality and hypernatremia; Z68.43 Body mass index [BMI] 50.0-59.9, adult; N18.4 Chronic kidney disease, stage 4 (severe); E66.2 Morbid (severe) obesity with alveolar hypoventilation; R59.1 Generalized enlarged lymph nodes; N40.1 Benign prostatic hyperplasia with lower urinary tract symptoms; R33.8 Other retention of urine; E11.649 Type 2 diabetes mellitus with hypoglycemia without coma; E11.22 Type 2 diabetes mellitus with diabetic chronic kidney disease; E87.5 Hyperkalemia; B96.20 Unspecified Escherichia coli [E. coli] as the cause of diseases classified elsewhere; E78.5 Hyperlipidemia, unspecified; Z20.822 Contact with and (suspected) exposure to COVID-19; Z90.49 Acquired absence of other specified parts of digestive tract; Z79.82 Long term (current) use of aspirin; Z79.899 Other long term (current) drug therapy; Z89.519 Acquired absence of unspecified leg below knee
CPT/HCPCS: 36415; 36600; 70450; 71045; 74018; 80048; 80053; 80202; 81001; 82140; 82533; 82550; 82803; 82948; 83605; 83735; 83880; 84100; 84443; 84484; 85025; 85610; 85730; 86704; 86706; 87040; 87070; 87081; 87086; 87205; 87340; 89220; 90935; 92526; 93005; 94003; 94640; 94660; 96365; 97110; 97112; 97163-GP; 97164; 97530; 99285; A6248; J0461; J0692; J0696; J1265; J1644; J1650; J1815; J1940; J2185; J2310; J2405; J2543; J2704; J3370; J3475; J3480; J3490; J7030; J7060; P9046; Q0092

== ENCOUNTER 2021-09-08 15:50 | Emergency (ER) | payer OTHER ==
[~2021-09-08] VITALS: Ht 172.7 cm; Wt 95.3 kg
[~2021-09-08 15:50] MED LIST changes: +ALBU3SOL83 IH; -AMLO10TA PO; +AMLO10TA89 PO; +FERR325E14 PO; +FURO-572 PO; +GLIP5TER PO; +QUET25TA46 PO; +VITD400 PO
[2021-09-08 15:56] VITALS: BP 142/76
--- NOTE | 2021-09-08 15:56 | NUR ---
[facility] BLS TO ER BED 1
--- NOTE | 2021-09-08 16:00 | NUR ---
PT BIB BLS RUN FROM HOME C/O GENERALIZED WEAKNESS X1 WEEK. PT GCS 15, DENIES PAIN OR DISCOMFORT. NSR ON MONITOR. PT COVERED IN BED BUGS, APPEARS DISCHEVELED AND DIRTY. PT STATES LIVES WITH SON WHO IS PRIMARY CAREGIVER. ALL CLOTHING REMOVED WITH BEDDING AND PLACED IN BIOHAZARD BAGS, NEW LINEN PLACED WITH GOWN AND PT CLEANED AND REPOSITIONED FOR COMFORT. IV INSERTED TO RIGHT WRIST #20GUAGE. F/C REMOVED AND REPLACED. PENDING FURTHER ORDERS
[2021-09-08] MEDS ORDERED: NACL 0.9% 1,000 ML IV ONE ×2 (16:30→17:45)
[2021-09-08 16:45] LABS: BASOPHILS # (AUTO) 0.1 K/uL (0.00-0.22); BASOPHILS % (AUTO) 0.8 % (0.0-2.0); EOSINOPHILS # (AUTO) 0.2 K/uL (0-0.4); EOSINOPHILS % (AUTO) 2.2 % (0.0-4.0); HEMATOCRIT 38.3 % (36-52); HEMOGLOBIN 12.4 g/dL (12.0-18.0); LYMPHOCYTES # (AUTO) 0.9 K/uL (2.0-11.5); LYMPHOCYTES % (AUTO) 11.8 % (20.5-51.1); MEAN CORPUSCULAR HEMOGLOBIN 31 pg (27-31); MEAN CORPUSCULAR HGB CONC 32 g/dL (33-37); MEAN CORPUSCULAR VOLUME 96.2 fL (80-94); MONOCYTES # (AUTO) 0.7 K/uL (0.8-1.0); MONOCYTES % (AUTO) 9.7 % (1.7-9.3); NEUTROPHILS # (AUTO) 5.7 K/uL (1.8-7.7); NEUTROPHILS % (AUTO) 75.5 % (42.2-75.2); PLATELET COUNT (AUTO) 290 K/uL (140-450); RED BLOOD CELL COUNT(AUTO) 3.98 MIL/uL (4.20-6.10); RED CELL DISTRIBUTION WIDTH 14.5 % (11.6-13.7); WHITE BLOOD COUNT (AUTO) 7.6 K/uL (4.8-10.8)
[2021-09-08 17:02] LABS: ALBUMIN 2.9 g/dL (3.4-5.0); ANION GAP 13.4 (8-16); ASPARTATE AMINOTRANSFERASE 23 U/L (15-37); CARBON DIOXIDE 25.3 mmol/L (21-32); CHLORIDE 101 mmol/L (98-107); CREATININE 2.3 mg/dL (0.6-1.3); GLUCOSE 103 mg/dL (74-106); POTASSIUM 4.7 mmol/L (3.5-5.1); SODIUM SERUM 135 mmol/L (136-145); TOTAL BILIRUBIN 0.7 mg/dL (0.0-1.0)
[2021-09-08 17:04] LABS: UREA NITROGEN, BLOOD 66 mg/dL (7-18)
[2021-09-08 17:17] LABS: LIPASE 76 U/L (73-393); MAGNESIUM 2.2 mg/dL (1.8-2.4); PHOSPHORUS 3.1 mg/dL (2.5-4.9); THYROID STIMULATING HORMONE 2.45 uIU/mL (0.34-3.74)
--- NOTE | 2021-09-08 18:26 | NUR ---
APR REPORTED FILED TO [facility] REPORT NUMBER [id number]. APS FORM FILLED AND GIVEN TO DIRECTOR GEOPHYSICAL LABORATORY FRANKIE
--- NOTE | 2021-09-08 20:31 | NUR ---
FAX COMPLETE 2020
--- NOTE | 2021-09-08 21:28 | NUR ---
H/P AND COVID RESULTS FAXED AT 0927 FAX COMPLETE AT 21:27
--- NOTE | 2021-09-08 21:42 | NUR ---
RESENT CLINICALS F/S AND H&P TO [facility] DUE TO REPRESENTITIVE CLAIMING TO NOT HAVE RECIEVE THEM IN PACKET - [id number]
--- NOTE | 2021-09-08 21:45 | NUR ---
@2020- SPOKE WITH SON OUTSIDE IN LOBBY TO UPDATE STATUS. TOLD SON WE ARE WAITING FOR INSURACE PLACEMENT. WILL CALL BACK SON WHEN INSURANCE UPDATES
--- NOTE | 2021-09-08 22:00 | NUR ---
2144- URINE COLLECTED 0- URINE TOOK TO LAB
[2021-09-08 22:31] LABS: BILIRUBIN,URINE 2+ (NEGATIVE); BLOOD, URINE 3+ (NEGATIVE); COLOR,URINE YELLOW (YELLOW); LEUKOCYTE ESTERASE ,URINE 2+ (NEGATIVE); NITRITE, URINE NEGATIVE (NEGATIVE); PH,URINE 5.5 (5.0-9.0); UGLUCOSE NEGATIVE (NEGATIVE)
[2021-09-08 23:06] LABS: APPEARANCE,URINE HAZY (CLEAR)
[2021-09-08 23:09] LABS: BARBITURATE, URINE NEGATIVE ng/ml (NEG <=200); BENZODIAZEPINE, URINE NEGATIVE ng/mL (NEG <=200); CANNABINOID, URINE NEGATIVE ng/mL (NEG <=50); COCAINE, URINE NEGATIVE ng/mL (NEG <=300); OPIATE, URINE NEGATIVE ng/mL (NEG <=2000); PHENCYCLIDINE SCREEN,URINE NEGATIVE ng/mL (NEG <=25)
[2021-09-08 23:13] LABS: RBC,URINE 11-20 (MOD) /HPF (0-5); WBC,URINE 60-80 /HPF (0-5)
--- NOTE | 2021-09-08 23:43 | NUR ---
PT SON CALLED AND NOTIFIED OF TRANSFER.
--- NOTE | 2021-09-08 23:52 | NUR ---
[facility] ON SCENE FOR [place]
[2021-09-08 23:53] VITALS: BP 118/54
--- NOTE | 2021-09-08 23:53 | NUR ---
Patient to be transferred to [facility]. Is being transferred due to INSURANCE . Receiving facility has accepting physician and available space. ER physician has signed transfer form. Patient or responsible republican has agreed to transfer and signed form. Patient belongings inventoried and will be sent with patient. Copy of nursing notes, lab reports, EKG, Physicians Orders and X-rays to be sent with patient. Report called to at receiving facility. [facility] ambulance service has been called for transfer. ETA is 15 ,MIN. REPORT GIVEN TO ZEB MONGE
--- NOTE | 2021-09-09 00:24 | NUR ---
The patient's care was reviewed and supervised by Dary Sultana RN.
--- NOTE | 2021-09-10 18:30 | NUR ---
RECEIVED POSITIVE BLOOD CULTURE RESULTS FROM LAB. SPOKE WITH FABY AT [facility] TO CONFIRM PT IS STILL IN FACILITY. FAXED LAB RESULTS TO CHARGE NURSE VITALIY. DISCREPANCY LOG SIGNED BY DR EDL CID.
== END 2021-09-09 00:23 | disposition home or self-care (01) ==
LOC: MED 15:50
DX: N17.9 Acute kidney failure, unspecified (principal); Z20.822 Contact with and (suspected) exposure to COVID-19; R53.1 Weakness; E11.9 Type 2 diabetes mellitus without complications; I10 Essential (primary) hypertension; Z79.899 Other long term (current) drug therapy; Z79.84 Long term (current) use of oral hypoglycemic drugs; Z79.82 Long term (current) use of aspirin; Z90.49 Acquired absence of other specified parts of digestive tract; Z89.511 Acquired absence of right leg below knee; Z89.432 Acquired absence of left foot
CPT/HCPCS: 36415; 71045; 80053; 80305; 81001; 82553; 82803; 83690; 83735; 83880; 84100; 84443; 84484; 85025; 87040; 87086; 93005; 96360; 96361; 99285; J7030